=== PATIENT | male | born 1975 | race Hispanic/Latino ===

== ENCOUNTER 2021-02-12 20:54 | Inpatient (IN) | payer SELFPAY ==
--- NOTE | 2021-02-12 22:22 | Emergency Department Report ---
ED Shortness of Breath HPI - General Chief Complaint: Dyspnea/Respdistress Stated Complaint: SOB Time Seen by Provider: 02/12/21 21:48 Source: EMS, old records reviewed (no previous record here) Mode of arrival: Stretcher Limitations: No Limitations - History of Present Illness Initial Comments: 45-year-old male with a past medical history of alcohol abuse, liver cirrhosis secondary to alcohol abuse, hypertension presents to the hospital complaints of shortness of breath for the last 3 days. EMS reported patient had a room air saturation 90% with audible wheezing. Patient received albuterol 5 mg and Decadron 10 mg in route to the hospital with improvement in symptoms and improvement in room air saturation to 96%. Patient states he has significant abdominal distention with history of repeated paracentesis secondary to ascites. Previous paracentesis had been performed at [facility] with last procedure performed 1 month ago. Patient has his first outpatient GI follow-up appointment scheduled at [facility] tomorrow. Patient continues to drink alcohol and prefers vodka. Last drink was 4 hours prior to arrival. Patient has a history of severe alcohol withdrawal tremors and expresses concern about withdrawing during his stay here. Patient does not smoke cigarettes. Denies history of lung disease. Patient is unvaccinated for Covid. He denies cough, loss of sense of taste or smell, or fever - Related Data Allergies Allergy/AdvReac Type Severity Reaction Status Date / Time No Known Allergies Allergy Verified 02/13/21 01:35 ED Review of Systems ROS: Stated complaint: SOB Other details as noted in HPI Comment: All other systems reviewed and negative ED Past Medical Hx - Past Medical History Previous Medical History?: No - Surgical History Past Surgical History?: No ED Physical Exam - General Limitations: No Limitations - Other Other exam information: General: No acute distress Head: Atraumatic Eyes: Icteric sclera ENT: Moist mucous membranes Neck: Normal appearance, no midline tenderness Chest: Mild tachypnea, mild wheeze left lung field, right lung field sounds diminished CV: Regular rate and rhythm Abdomen: Soft, normal bowel sounds, hepatomegaly palpated, mild liver tenderness, no rebound Back: Normal inspection Extremity: Normal inspection, full range of motion Neuro: Alert O x 3, no facial asymmetry, speech clear, no gross motor sensory deficit Psych: Appropriate behavior Skin: No rash ED Course Vital Signs 02/12/21 02/12/21 02/12/21 21:56 23:39 23:45 Temperature 98.9 F Pulse Rate 70 117 H 119 H Respiratory 19 35 H 27 H Rate Blood Pressure 142/84 123/83 Blood Pressure 132/83 [Right] O2 Sat by Pulse 94 92 95 Oximetry 02/13/21 02/13/21 02/13/21 00:01 00:15 00:45 Temperature Pulse Rate 118 H 124 H 115 H Respiratory 23 33 H 28 H Rate Blood Pressure 129/75 114/75 100/54 Blood Pressure [Right] O2 Sat by Pulse 96 94 Oximetry 02/13/21 02/13/21 02/13/21 01:01 01:15 01:31 Temperature Pulse Rate 129 H 124 H 124 H Respiratory 15 36 H 21 Rate Blood Pressure 113/73 135/81 128/72 Blood Pressure [Right] O2 Sat by Pulse 93 91 91 Oximetry 02/13/21 02/13/21 02/13/21 01:45 02:01 02:15 Temperature Pulse Rate 134 H 145 H 128 H Respiratory 17 29 H 29 H Rate Blood Pressure 147/102 123/75 128/75 Blood Pressure [Right] O2 Sat by Pulse 85 94 90 Oximetry 02/13/21 02/13/21 02/13/21 02:31 02:45 03:01 Temperature Pulse Rate 135 H 132 H Respiratory 29 H 33 H 32 H Rate Blood Pressure 132/63 145/94 135/87 Blood Pressure [Right] O2 Sat by Pulse 98 90 Oximetry 02/13/21 02/13/21 02/13/21 03:15 03:31 04:01 Temperature Pulse Rate Respiratory Rate Blood Pressure 136/83 138/87 127/84 Blood Pressure [Right] O2 Sat by Pulse 87 86 94 Oximetry 02/13/21 02/13/21 02/13/21 04:15 04:31 05:04 Temperature Pulse Rate 155 H 125 H Respiratory 20 36 H Rate Blood Pressure 139/62 127/80 Blood Pressure [Right] O2 Sat by Pulse 95 99 Oximetry - Reevaluation(s) Reevaluation #1: 02/13/21 01:34 Supports O2 saturation 91 to 92% on 5 L nasal cannula oxygen supplementation, patient received Ativan 2 mg IV and is still tachycardic. Banana bag ordered Reevaluation #2: 02/13/21 04:32 Patient has been admitted to the hospitalist service however, patient apparently has a change in mental status. Upon arrival he was alert and oriented he is currently sedated, slurring words, and intermittently not following commands and continues to try to remove the oxygen from his face. Nurse reports that patient has received a total Ativan 4 mg secondary to CIWA score. Ammonia ordered, ABG requested from respiratory therapist, Dr. Madrigal informed and he will change admission from telemetry back to IMCU Reevaluation #3: 02/13/21 5:30 AM Patient was found by nurse pulseless and apneic. Upon my arrival patient was cyanotic with chest compressions in progress. CPR was initiated. PEA on the monitor patient received bag mask valve ventilations while being prepped for intubations. He received a total of epinephrine x2, 1 amp of sodium bicarb, is intubated with 7.5 ET tube 20 at the lip using a glide scope. Positive return of spontaneous circulation. Central line placed. Dr. Madrigal informed - Consultations Consultation #1: 02/12/21 22:26 case d/w Dr Hayden on-call fabrication operator. Agree with CAT scan will consult during admission 02/13/21 00:[address] Mehta GI doctor advanced manufacturing consultant will consult 02/13/21 06:04 Dr. Mas critical care MD consulted. Dr Madrigal to upgrade pt to ICU - Central Line Placement Right Femoral Consent Obtained: emergent situation Time Out Performed: Yes Patient Placed on Monitor/Pulse Ox: Yes MD Prep: mask, gown, gloves Central Line Prep: Chlorhexidine scrub Local Anesthesia Used: other anesthetic Ultrasound Used for Placement: Yes Central Line Lumen Inserted: triple Reason for Insertion: Volume Resuscitation Bloods Obtained for Lab: No Central Line Position: good blood return, sutured in place with nyl Dressing Applied: sterile gauze/tape Patient Tolerated Procedure: no complications Complications: none - Intubation Time Out Performed: Yes Sedative: none Laryngoscope: fiberoptic video scope Size: 4 ET Tube Size: 7.5 Tube Secured Depth (cm): 21 Tube Secured Location: lips Tube Placement Confirmation: visualized tube passing t, equal breath sounds bilat, no breath sounds over epi, confirmation by capnometr Patient Tolerated Procedure: well, no complications Intubation Complications: none ED Medical Decision Making - Lab Data Result diagrams: 02/12/21 22:17 12/20/21 22:17 Lab Results 02/12/21 02/12/21 02/12/21 Range/Units 22:17 22:17 22:17 WBC 8.5 (4.5-11.0) K/mm3 RBC 4.16 (3.65-5.03) M/mm3 Hgb 13.7 (11.8-15.2) gm/dl Hct 43.6 (35.5-45.6) % MCV 105 H (84-94) fl MCH 33 H (28-32) pg MCHC 31 L (32-34) % RDW 17.6 H (13.2-15.2) % Plt Count 73 L (140-440) K/mm3 Eos % (Auto) Psychiatric Registered Nurse Seg Neutrophils % Psychiatric Registered Nurse PT 15.5 H (12.2-14.9) Sec. INR 1.11 (0.87-1.13) APTT 39.3 H (24.2-36.6) Sec. Sodium 136 L (137-145) mmol/L Potassium 3.4 L (3.6-5.0) mmol/L Chloride 91.9 L (98-107) mmol/L Carbon Dioxide 18 L (22-30) mmol/L Anion Gap 30 mmol/L BUN 17 (9-20) mg/dL Creatinine 1.2 (0.8-1.3) mg/dL Estimated GFR > 60 ml/min BUN/Creatinine Ratio 14 % Glucose 164 H (75-100) mg/dL Calcium 9.0 (8.4-10.2) mg/dL Magnesium (1.7-2.3) mg/dL Total Bilirubin 18.90 H (0.1-1.2) mg/dL AST 396 H (5-40) units/L ALT 98 H (7-56) units/L Alkaline Phosphatase 454 H (35-129) units/L Total Protein 6.3 (6.3-8.2) g/dL Albumin 3.4 L (3.9-5) g/dL Albumin/Globulin Ratio 1.2 % Plasma/Serum Alcohol (0-0.07) % 02/12/21 02/12/21 Range/Units 22:17 Unknown WBC (4.5-11.0) K/mm3 RBC (3.65-5.03) M/mm3 Hgb (11.8-15.2) gm/dl Hct (35.5-45.6) % MCV (84-94) fl MCH (28-32) pg MCHC (32-34) % RDW (13.2-15.2) % Plt Count (140-440) K/mm3 Eos % (Auto) Seg Neutrophils % PT (12.2-14.9) Sec. INR (0.87-1.13) APTT (24.2-36.6) Sec. Sodium (137-145) mmol/L Potassium (3.6-5.0) mmol/L Chloride (98-107) mmol/L Carbon Dioxide (22-30) mmol/L Anion Gap mmol/L BUN (9-20) mg/dL Creatinine (0.8-1.3) mg/dL Estimated GFR ml/min BUN/Creatinine Ratio % Glucose (75-100) mg/dL Calcium (8.4-10.2) mg/dL Magnesium 1.50 L (1.7-2.3) mg/dL Total Bilirubin (0.1-1.2) mg/dL AST (5-40) units/L ALT (7-56) units/L Alkaline Phosphatase (35-129) units/L Total Protein (6.3-8.2) g/dL Albumin (3.9-5) g/dL Albumin/Globulin Ratio % Plasma/Serum Alcohol 0.32 H (0-0.07) % - EKG Data -: EKG Interpreted by Ar EKG shows normal: sinus rhythm, intervals (qtc 4941), QRS complexes (qrsd 158), ST-T waves (no stemi) Rate: tachycardia (120) - EKG Data When compared to previous EKG there are: previous EKG unavailable - Radiology Data Radiology results: report reviewed CHEST 1 VIEW 02/12/2021 9:28 PM INDICATION / CLINICAL INFORMATION: Shortness of breath for 3 days. History of liver failure with abdominal distention. History of ascites. COMPARISON: None available. FINDINGS: SUPPORT DEVICES: None. HEART / MEDIASTINUM: Unremarkable as visualized. LUNGS / PLEURA: There is complete opacification of the right hemithorax. The left lung is clear. No pneumothorax. ADDITIONAL FINDINGS: No significant additional findings. IMPRESSION: Complete opacification of the right hemithorax, likely representing a large pleural effusion and/or atelectasis. A CT of the chest is pending. CT CHEST, ABDOMEN, AND PELVIS WITH IV CONTRAST INDICATION: Shortness of breath, abdominal distention, history of alcohol induced cirrhosis. TECHNIQUE: Axial CT images were obtained through the chest, abdomen, and pelvis after 100 cc Omnipaque [address] scans at this location are performed using CT dose reduction for ALARA by means of automated exposure control. COMPARISON: One view of the chest performed today. FINDINGS: HEART: No significant abnormality. THORACIC VASCULATURE: No acute findings. There is moderate coronary atherosclerosis. The aorta is normal in caliber. LYMPH NODES: Shotty mediastinal nodes are present. No significant adenopathy is seen elsewhere. TRACHEA AND BRONCHI:No significant abnormality. LUNGS: There is a very large right pleural effusion with associated atelectasis. A small left pleural effusion is also noted. The left lung is otherwise clear. No pneumothorax. LIVER: Marked hepatic steatosis is noted with hepatomegaly. The right hepatic lobe measures 25 cm in length. No suspicious liver lesions or other significant abnormalities. GALLBLADDER/BILE DUCTS: No significant abnormality. PANCREAS: No significant abnormality. SPLEEN: No significant abnormality. ADRENALS: No significant abnormality. KIDNEYS/URETERS: No significant abnormality. STOMACH/SMALL BOWEL: No significant abnormality. COLON: Thickening of the right colon is favored to be secondary to liver disease. The sigmoid colon is underdistended. There is nonspecific circumferential thickening of the rectum with mild perirectal fat stranding. No distinct colonic mass or other significant abnormalities. APPENDIX: No significant abnormality. PERITONEUM: Trace ascites is seen along the spleen. No other significant ascites. No free air. No fluid collection. There is mild mesenteric edema and congestion. LYMPH NODES: No significant adenopathy. ABDOMINOPELVIC VASCULATURE: No significant abnormality. URINARY BLADDER: Collapse without a distinct abnormality. REPRODUCTIVE ORGANS: No significant abnormality. ADDITIONAL FINDINGS: None. BONES: No significant abnormality IMPRESSION: 1. Very large right pleural effusion without other acute abnormalities of the chest. 2. Hepatomegaly and hepatic steatosis. 3. Thickening of the right colon is favored to be secondary to liver disease. 4. Thickening of the sigmoid colon is favored to be due to underdistention. However, given the thickened appearance of the rectum, colitis/proctitis cannot be excluded. Please correlate with the clinical findings. 5. Additional findings as above. - Medical Decision Making 45-year-old male with a history of alcohol induced liver cirrhosis with recurrent ascites requiring paracentesis presents to the hospital shortness of breath. Symptoms improved after bronchodilators that were provided by EMS prior to arrival. Patient has a significant right pleural effusion with right lung collapse. CT abdomen pelvis does not reveal significant ascites other findings noted. Case discussed with Dr. Hayden pulmonology and they will consult in the morning. Case also discussed with GI advanced manufacturing consultant. Potassium and magnesium supplement Patient placed on CIWA protocol for alcohol withdrawal however, presents with alcohol intoxication ABG reveals a metabolic acidosis. Initial labs revealed a metabolic anion gap acidosis with elevated alcohol level. O2 saturation 95% on 100% nonrebreather after admission patient had diminished mental status, worsening hypoxia, and cardiopulmonary arrest. See hospital course for further details regarding interventions and resuscitation efforts Critical Care Time: Yes Critical care time in (mins) excluding proc time.: 35 Critical care attestation.: If time is entered above; I have spent that time in minutes in the direct care of this critically ill patient, excluding procedure time. ED Disposition Clinical Impression: SOB (shortness of breath), Pleural effusion, right, Liver cirrhosis, Alcohol abuse, Thrombocytopenia, Hypokalemia, Hypomagnesemia, Acute respiratory failure, Cardiopulmonary arrest with successful resuscitation Disposition: ADMITTED INPATIENT Is pt being admited?: Yes Condition: Stable Time of Disposition: 00:17
[2021-02-12] MEDS ORDERED: LORazepam 2 MG/ML VIAL IV PRN (22:24)
[2021-02-12 22:33] LABS: Hematocrit 43.6 % (35.5-45.6); Hemoglobin 13.7 gm/dl (11.8-15.2); Mean Corpuscular HGB Conc 31 % (32-34); Mean Corpuscular Volume 105 fl (84-94); Red Blood Count 4.16 M/mm3 (3.65-5.03); Red Cell Distribution Width 17.6 % (13.2-15.2)
[2021-02-12 22:37] LABS: Platelet Count 73 K/mm3 (140-440)
[2021-02-12 22:41] LABS: INR 1.11 (0.87-1.13)
[2021-02-12 22:42] LABS: Partial Thromboplastin Time 39.3 Sec. (24.2-36.6)
--- NOTE | 2021-02-12 22:44 | XRay Report ---
CHEST 1 VIEW 02/12/2021 9:28 PM INDICATION / CLINICAL INFORMATION: Shortness of breath for 3 days. History of liver failure with abdominal distention. History of ascite s. COMPARISON: None available. FINDINGS: SUPPORT DEVICES: None. HEART / MEDIASTINUM: Unremarkable as visualized. LUNGS / PLEURA: There is complete opacification of the right hemithorax. The left lung is clear. No pneumothorax. ADDITIONAL FINDINGS: No significant additional findings. IMPRESSION: Complete opacification of the right hemithorax, likely representing a large pleural effusion and/or a telectasis. A CT of the chest is pending. Signer Name: José Manuel Craven MD Signed: 02/12/2021 10:40 PM Workstation Name: [id number]
[2021-02-12 22:48] LABS: Alanine Aminotransferase 98 units/L (7-56); Albumin 3.4 g/dL (3.9-5); BUN/Creatinine Ratio 14; Blood Urea Nitrogen 17 mg/dL (9-20); Hemolysis Index 0
--- NOTE | 2021-02-12 23:56 | Cat Scan Report ---
CT CHEST, ABDOMEN, AND PELVIS WITH IV CONTRAST INDICATION: Shortness of breath, abdominal distention, history of alcohol induced cirrhosis. TECHNIQUE: Axial CT images were obtained through the chest, abdomen, and pelvis after 100 cc Omnipaque [address] scans at this location are performed using CT dose reduction for ALARA by means of aut omated exposure control. COMPARISON: One view of the chest performed today. FINDINGS: HEART: No significant abnormality. THORACIC VASCULATURE: No acute findings. There is moderate coronary atherosclerosis. The aorta is nor mal in caliber. LYMPH NODES: Shotty mediastinal nodes are present. No significant adenopathy is seen elsewhere. TRACHEA AND BRONCHI:No significant abnormality. LUNGS: There is a very large right pleural effusion with associated atelectasis. A small left pleural effusion is also noted. The left lung is otherwise clear. No pneumothorax. LIVER: Marked hepatic steatosis is noted with hepatomegaly. The right hepatic lobe measures 25 cm in length. No suspicious liver lesions or other significant abnormalities. GALLBLADDER/BILE DUCTS: No significant abnormality. PANCREAS: No significant abnormality. SPLEEN: No significant abnormality. ADRENALS: No significant abnormality. KIDNEYS/URETERS: No significant abnormality. STOMACH/SMALL BOWEL: No significant abnormality. COLON: Thickening of the right colon is favored to be secondary to liver disease. The sigmoid colon i s underdistended. There is nonspecific circumferential thickening of the rectum with mild perirectal fat stranding. No distinct colonic mass or other significant abnormalities. APPENDIX: No significant abnormality. PERITONEUM: Trace ascites is seen along the spleen. No other significant ascites. No free air. No flu id collection. There is mild mesenteric edema and congestion. LYMPH NODES: No significant adenopathy. ABDOMINOPELVIC VASCULATURE: No significant abnormality. URINARY BLADDER: Collapse without a distinct abnormality. REPRODUCTIVE ORGANS: No significant abnormality. ADDITIONAL FINDINGS: None. BONES: No significant abnormality IMPRESSION: 1. Very large right pleural effusion without other acute abnormalities of the chest. 2. Hepatomegaly and hepatic steatosis. 3. Thickening of the right colon is favored to be secondary to liver disease. 4. Thickening of the sigmoid colon is favored to be due to underdistention. However, given the thicke devi appearance of the rectum, colitis/proctitis cannot be excluded. Please correlate with the clinica l findings. 5. Additional findings as above. Signer Name: José Manuel Craven MD Signed: 02/12/2021 11:51 PM Workstation Name: [id number]
[2021-02-12] MEDS: LORazepam 2 MG/ML VIAL IV PRN (23:58)
[2021-02-13] MEDS ORDERED: POTASSIUM CHLORIDE ER 20 MEQ TAB PO ONE (00:09)
[2021-02-13] MEDS ORDERED: MAGNESIUM SULFATE 2 GM/50 ML BAG IV ONE (00:09)
[2021-02-13] MEDS ORDERED: THIAMINE 100 MG, FOLIC ACID 1 MG, MULTIPLE VITAMIN INJ, ADULT 10 ML in SODIUM CHLORIDE ... IV ONE (01:34)
[2021-02-13] MEDS: LORazepam 2 MG/ML VIAL IV PRN (02:07)
[2021-02-13 02:25] LABS: Total Cells Counted 100
[2021-02-13 02:26] LABS: Target Cells 1+
[2021-02-13 02:27] LABS: Platelet Estimate Consistent w Auto
[2021-02-13] MEDS ORDERED: MORPHINE 4 MG/1 ML INJ IV PRN (02:35)
[2021-02-13] MEDS ORDERED: ACETAMINOPHEN 325 MG TAB PO PRN (02:35)
[2021-02-13] MEDS ORDERED: MAGNESIUM HYDROXIDE (MOM) ORAL LIQD UDC PO PRN (02:35)
[2021-02-13] MEDS ORDERED: ONDANSETRON 4 MG/2 ML INJ IV PRN (02:35)
[2021-02-13] MEDS ORDERED: MORPHINE 2 MG/1 ML INJ IV PRN (02:35)
--- NOTE | 2021-02-13 02:45 | History and Physical Report ---
History of Present Illness Date of examination: 02/13/21 Date of admission: 02/13/21 00:17 Chief complaint: Shortness of Breath History of present illness: 45-year-old male with known history of alcohol abuse, liver cirrhosis secondary to alcoholic liver disease, hypertension brought into the emergency room today complaining of shortness of breath which has been ongoing for the past 3 days. Upon arrival in the emergency room oxygen saturation was in the low 90s patient received some nebulizing treatments and steroids with improvement of oxygen saturation to about 96%. Patient has known history of ascites and has had repeated paracentesis in the past. Last paracentesis was done at [facility] about a month ago. Indicates he has a follow-up appointment at [facility] at the GI clinic tomorrow. He however continues to drink alcohol almost on a daily basis. Last alcohol intake was about 4 hours prior to presentation in the emergency room. Patient has known history of severe alcohol withdrawal tremors. He denies any fever or chills, no chest pain, no nausea vomiting and no diarrhea. He denies any sick contacts and no recent travel. Denies any contact with anyone with COVID-19. Patient has not been vaccinated against COVID-19. Work-up in the emergency room today, significant findings were that of thrombocytopenia of 73,000, mild hypokalemia of 3.4, elevated AST and ALT, elevated ammonia level 68. Chest x-ray shows complete opacification of the right hemithorax likely representing a large pleural effusion and or atelectasis. CT of the abdomen and pelvis reveals hepatomegaly and hepatic steatosis. Very large right pleural effusion. During the course of his stay in the emergency room patient went into respiratory distress and was subsequently intubated. Past History Past Medical History: hypertension, liver disease, other (alcohol abuse) Past Surgical History: No surgical history Social history: no significant social history Family history: no significant family history Medications and Allergies Allergies Allergy/AdvReac Type Severity Reaction Status Date / Time No Known Allergies Allergy Verified 02/13/21 01:35 Active Meds: Active Medications Thiamine HCl 100 mg/ Folic Acid 1 mg/ Multivitamins/Minerals 10 ml/ Sodium Chloride 1,011.2 mls @ 250 mls/hr IV ONCE ONE Stop: 02/13/21 05:36 Last Admin: 02/13/21 02:35 Dose: 250 mls/hr Documented by: Lorazepam (Lorazepam 2 Mg/Ml Vial) 2 mg IV Q1H PRN PRN Reason: [facility] 8-15 Last Admin: 02/13/21 02:07 Dose: 2 mg Documented by: Lorazepam (Lorazepam 2 Mg/Ml Vial) 4 mg IV Q1H PRN PRN [facility] Review [facility] Systems Constitutional: no fever, no chills Ears, nose, mouth and throat: no nasal congestion, no sore throat Cardiovascular: no chest pain, no palpitations Respiratory: shortness of breath, no cough Gastrointestinal: abdominal pain, no nausea, no vomiting, no diarrhea Genitourinary Male: no dysuria, no hematuria, no nocturia Musculoskeletal: no neck pain, no low back pain Integumentary: no rash, no pruritis Neurological: no headaches, no confusion Psychiatric: no anxiety, no depression Endocrine: no polydipsia, no polyuria, no nocturia Exam - Constitutional Vitals: Temp Pulse Resp BP Pulse Ox 98.9 F 145 H 29 H 123/75 94 02/12/21 21:56 02/13/21 02:01 02/13/21 02:01 02/13/21 02:01 02/13/21 02:01 General appearance: Present: no acute distress, well-nourished - EENT Eyes: Present: PERRL, EOM intact, scleral icterus ENT: hearing intact, clear oral mucosa, dentition normal - Neck Neck: Present: supple, normal ROM - Respiratory Respiratory effort: normal Respiratory: bilateral: rales - Cardiovascular Rhythm: regular Heart Sounds: Present: S1 & S2. Absent: gallop, systolic murmur, diastolic murmur, rub, click - Extremities Extremities: no ischemia, pulses intact, pulses symmetrical, normal temperature, normal color, Full ROM Peripheral Pulses: within normal limits - Abdominal General gastrointestinal: Present: soft, tender (Mild abdominal tenderness), distended, normal bowel sounds, hepatomegaly - Integumentary Integumentary: Present: clear, warm, dry, rash (Multiple healed rashes on lower extremities), normal turgor - Musculoskeletal Musculoskeletal: strength equal bilaterally - Psychiatric Psychiatric: appropriate mood/affect, intact judgment & insight, memory intact, cooperative - Neurologic Neurologic: CNII-XII intact, no focal deficits, moves all extremities Results - Labs CBC & Chem 7: 12/20/21 22:17 02/12/21 22:17 Labs: Abnormal lab results 02/12/21 02/12/21 02/12/21 Range/Units 22:17 22:17 22:17 MCV 105 H (84-94) fl MCH 33 H (28-32) pg MCHC 31 L (32-34) % RDW 17.6 H (13.2-15.2) % Plt Count 73 L (140-440) K/mm3 Seg Neuts % (Manual) 96.0 H (40.0-70.0) % Lymphocytes % (Manual) 3.0 L (13.4-35.0) % Seg Neutrophils # Man 8.2 H (1.8-7.7) K/mm3 Lymphocytes # (Manual) 0.3 L (1.2-5.4) K/mm3 PT 15.5 H (12.2-14.9) Sec. APTT 39.3 H (24.2-36.6) Sec. Sodium 136 L (137-145) mmol/L Potassium 3.4 L (3.6-5.0) mmol/L Chloride 91.9 L (98-107) mmol/L Carbon Dioxide 18 L (22-30) mmol/L Glucose 164 H (75-100) mg/dL Magnesium (1.7-2.3) mg/dL Total Bilirubin 18.90 H (0.1-1.2) mg/dL AST 396 H (5-40) units/L ALT 98 H (7-56) units/L Alkaline Phosphatase 454 H (35-129) units/L Albumin 3.4 L (3.9-5) g/dL Plasma/Serum Alcohol (0-0.07) % 02/12/21 02/12/21 Range/Units 22:17 Unknown MCV (84-94) fl MCH (28-32) pg MCHC (32-34) % RDW (13.2-15.2) % Plt Count (140-440) K/mm3 Seg Neuts % (Manual) (40.0-70.0) % Lymphocytes % (Manual) (13.4-35.0) % Seg Neutrophils # Man (1.8-7.7) K/mm3 Lymphocytes # (Manual) (1.2-5.4) K/mm3 PT (12.2-14.9) Sec. APTT (24.2-36.6) Sec. Sodium (137-145) mmol/L Potassium (3.6-5.0) mmol/L Chloride (98-107) mmol/L Carbon Dioxide (22-30) mmol/L Glucose (75-100) mg/dL Magnesium 1.50 L (1.7-2.3) mg/dL Total Bilirubin (0.1-1.2) mg/dL AST (5-40) units/L ALT (7-56) units/L Alkaline Phosphatase (35-129) units/L Albumin (3.9-5) g/dL Plasma/Serum Alcohol 0.32 H (0-0.07) % Assessment and Plan - Patient Problems (1) Pleural effusion, right Current Visit: Yes Status: Acute Plan to address problem: Consult placed to pulmonology for further evaluation and recommendation. Patient may require thoracentesis. (2) Hypokalemia Current Visit: Yes Status: Acute Plan to address problem: Potassium will be repleted and we will monitor chemistry. (3) Alcohol abuse Current Visit: Yes Status: Acute Plan to address problem: Patient placed on alcohol withdrawal protocol. He has also received banana bag in the emergency room. (4) Hypomagnesemia Current Visit: Yes Status: Acute Plan to address problem: Magnesium will be repleted and will monitor chemistry. (5) Liver cirrhosis Current Visit: Yes Status: Acute Plan to address problem: Consult placed to gastroenterology for further evaluation and recommendations. (6) Thrombocytopenia Current Visit: Yes Status: Acute Plan to address problem: We will monitor CBC. (7) DVT prophylaxis Current Visit: Yes Status: Acute Plan to address problem: Patient placed on sequential compression device. (8) Full code status Current Visit: Yes Status: Acute Plan to address problem: Patient is full code.
[2021-02-13 04:59] LABS: ABG Base Excess -9.3 mmol/L (-2.0-3.0); ABG HCO3 15.8 mmol/L (20.0-26.0); ABG Methemoglobin 0.6 % (0.0-1.5); ABG Oxygen Saturation 95.2 % (95.0-99.0); ABG PH 7.31 pH Units (7.350-7.450); ABG PO2 81.4 mm Hg (80.0-90.0)
[2021-02-13] MEDS ORDERED: LIP THERAPY VASELINE TP PRN (05:56)
[2021-02-13] MEDS ORDERED: MINERAL OIL/PETROLATUM, WHITE OPHTH OINT 3.5 GM OU PRN (05:56)
--- NOTE | 2021-02-13 06:37 | XRay Report ---
CHEST 1 VIEW 02/13/2021 5:21 AM INDICATION / CLINICAL INFORMATION: ETT placement. COMPARISON: One view of the chest and CT chest from 02/12/2021 FINDINGS: SUPPORT DEVICES: An ET tube has been placed with the tip located 7.7 cm above the cesar. An NG tube has been placed with the most distal visualized portion projecting over the proximal stomach. HEART / MEDIASTINUM: Stable. LUNGS / PLEURA: Unchanged very large right pleural effusion. No significant abnormality of the left l celio. No pneumothorax. ADDITIONAL FINDINGS: No significant additional findings. IMPRESSION: Satisfactory positioning of the ET tube. No other significant interval changes. Signer Name: José Manuel Craven MD Signed: 02/13/2021 6:33 AM Workstation Name: [id number]
[2021-02-13] MEDS ORDERED: SODIUM CHLORIDE 0.9% 250ML 250 ML IV ONE (06:55)
[2021-02-13] MEDS: NORepinephrine/NS 8 MG-250 ML 8 MG/250 ML INFUS..BTL IV SCH (08:08)
[2021-02-13 08:41] LABS: ABG Base Excess -13.4 mmol/L (-2.0-3.0); ABG HCO3 12.9 mmol/L (20.0-26.0); ABG Methemoglobin 0.7 % (0.0-1.5); ABG Oxygen Saturation 96.9 % (95.0-99.0); ABG PCO2 31.6 mm Hg; ABG PH 7.229 pH Units (7.350-7.450); ABG PO2 101.6 mm Hg (80.0-90.0)
[2021-02-13] MEDS ORDERED: FAMOTIDINE 20 MG/2 ML INJ IV SCH (10:00)
[2021-02-13] MEDS: LACTULOSE 20 GM/30 ML ORAL LIQD PO SCH (11:09)
[2021-02-13] MEDS: SENNOSIDES/DOCUSATE SODIUM 8.6/50 MG TAB FEEDTUBE SCH ×2 (11:09→22:02)
[2021-02-13] MEDS: FAMOTIDINE 20 MG/2 ML INJ IV SCH ×2 (11:09→22:02)
--- NOTE | 2021-02-13 11:40 | Consultation ---
History of Present Illness Consult date: 02/13/21 Requesting physician: DL CANO Reason for consult: pleural effusion, other (Acute Hypoxemic Respiratory Failure) History of present illness: PULMONARY/CCM CONSULT NOTE (Full dictation # [id number]) Please see dictated notes for full details Past History Past Medical History: hypertension, liver disease, other (alcohol abuse) Past Surgical History: No surgical history Social history: no significant social history Family history: no significant family history Medications and Allergies Allergies Allergy/AdvReac Type Severity Reaction Status Date / Time No Known Allergies Allergy Verified 02/13/21 01:35 Active Meds: Active Medications Acetaminophen (Acetaminophen 325 Mg Tab) 650 mg PO Q4H PRN PRN Reason: Pain MILD(1-3)/Fever >100.5/GIORDANO Famotidine (Famotidine 20 Mg/2 Ml Inj) 20 mg IV BID LAURIE Last Admin: 02/13/21 11:09 Dose: 20 mg Documented by: Hydrophilic Ointment (Lip Therapy Vaseline) 1 applic TP Q2HR PRN PRN Reason: Dry Lips Propofol (Diprivan 10 Mg/Ml) 1,000 mg in 100 mls @ 2.517 mls/hr IV TITR LAURIE; Protocol Last Titration: 02/13/21 08:54 Dose: 10 mcg/kg/min, 5.035 mls/hr Documented by: NORepinephrine/NS 8 MG-250 ML (Norepinephrine/Ns 8 Mg-250 Ml (Double Conc)) 8 m g in 250 mls @ 3.75 mls/hr IV TITRATE LAURIE; Protocol Last Titration: 02/13/21 08:20 Dose: 10 mcg/min, 18.75 mls/hr Documented by: Lactulose (Lactulose 20 Gm/30 Ml Oral Liqd) 20 gm PO QDAY LAURIE Last Admin: 02/13/21 11:09 Dose: 20 gm Documented by: Lorazepam (Lorazepam 2 Mg/Ml Vial) 2 mg IV Q1H PRN PRN Reason: [facility]-Ar 8-15 Last Admin: 02/13/21 02:07 Dose: 2 mg Documented by: Lorazepam (Lorazepam 2 Mg/Ml Vial) 4 mg IV Q1H PRN PRN Reason: [facility]-Ar 16-25 Magnesium Hydroxide (Magnesium Hydroxide (Mom) Oral Liqd Udc) 30 ml PO Q4H PRN PRN Reason: Constipation Morphine Sulfate (Morphine 2 Mg/1 Ml Inj) 2 mg IV Q4H PRN PRN Reason: Pain, Moderate (4-6) Morphine Sulfate (Morphine 4 Mg/1 Ml Inj) 4 mg IV Q4H PRN PRN Reason: Pain , Severe (7-10) Multi-Ingred Cream/Lotion/Oil/Oint (Mineral Oil/Petrolatum, White Ophth Oint 3.5 Gm) 1 applic OU Q4HR PRN PRN Reason: Dry Eye(s) Ondansetron HCl (Ondansetron 4 Mg/2 Ml Inj) 4 mg IV Q8H PRN PRN Reason: Nausea And Vomiting Senna/Docusate Sodium (Sennosides/Docusate Sodium 8.6/50 Mg Tab) 1 tab FEEDTUBE BID [facility] Last Admin: 02/13/21 11:09 Dose: 1 tab Documented by: Sodium Chloride (Sodium Chloride 0.9% 10 Ml Flush Syringe) 10 ml IV BID [facility] Last Admin: 02/13/21 11:00 Dose: Not Given Documented by: Sodium Chloride (Sodium Chloride 0.9% 10 Ml Flush Syringe) 10 ml IV PRN PRN PRN Reason: LINE FLUSH Physical Examination Vital signs: Vital Signs Temp Pulse Resp BP Pulse Ox 98.9 F 70 19 132/83 94 02/12/21 21:56 02/12/21 21:56 02/12/21 21:56 02/12/21 21:56 02/12/21 21:56 Results - Laboratory Findings CBC and BMP: 02/12/21 22:17 02/12/21 22:17 ABG ABG pH 7.229 pH Units (7.350-7.450) L 02/13/21 08:17 ABG pCO2 31.6 mm Hg 02/13/21 08:17 ABG pO2 101.6 mm Hg (80.0-90.0) H 02/13/21 08:17 ABG O2 Saturation 96.9 % (95.0-99.0) 02/13/21 08:17 PT/INR, D-dimer PT 15.5 Sec. (12.2-14.9) H 02/12/21 22:17 INR 1.11 (0.87-1.13) 02/12/21 22:17 Abnormal lab findings: Abnormal Labs 02/12/21 02/12/21 02/12/21 22:17 22:17 22:17 MCV 105 H MCH 33 H MCHC 31 L RDW 17.6 H Plt Count 73 L Seg Neuts % (Manual) 96.0 H Lymphocytes % (Manual) 3.0 L Seg Neutrophils # Man 8.2 H Lymphocytes # (Manual) 0.3 L PT 15.5 H APTT 39.3 H ABG pH ABG pO2 ABG HCO3 ABG Base Excess ABG Hemoglobin Oxyhemoglobin Sodium 136 L Potassium 3.4 L Chloride 91.9 L Carbon Dioxide 18 L Glucose 164 H Magnesium Total Bilirubin 18.90 H AST 396 H ALT 98 H Alkaline Phosphatase 454 H Ammonia Albumin 3.4 L Plasma/Serum Alcohol 02/12/21 02/12/21 02/13/21 22:17 Unknown 04:40 MCV MCH MCHC RDW Plt Count Seg Neuts % (Manual) Lymphocytes % (Manual) Seg Neutrophils # Man Lymphocytes # (Manual) PT APTT ABG pH 7.310 L ABG pO2 ABG HCO3 15.8 L ABG Base Excess -9.3 L ABG Hemoglobin 13.2 L Oxyhemoglobin 92.7 L Sodium Potassium Chloride Carbon Dioxide Glucose Magnesium 1.50 L Total Bilirubin AST ALT Alkaline Phosphatase Ammonia Albumin Plasma/Serum Alcohol 0.32 H 02/13/21 02/13/21 05:00 08:17 MCV MCH MCHC RDW Plt Count Seg Neuts % (Manual) Lymphocytes % (Manual) Seg Neutrophils # Man Lymphocytes # (Manual) PT APTT ABG pH 7.229 L ABG pO2 101.6 H ABG HCO3 12.9 L ABG Base Excess -13.4 L ABG Hemoglobin 13.2 L Oxyhemoglobin 94.8 L Sodium Potassium Chloride Carbon Dioxide Glucose Magnesium Total Bilirubin AST ALT Alkaline Phosphatase Ammonia 68.0 H Albumin Plasma/Serum Alcohol
--- NOTE | 2021-02-13 12:27 | Ultrasound Report ---
ULTRASOUND-GUIDED THORACENTESIS INDICATION / CLINICAL INFORMATION: Large Right Pleural Effusion. COMPARISON: None available. PROCEDURE: The risks (including but not limited to bleeding, infection, and pneumothorax) and benefits were expl ained to the patient and informed consent was obtained. A time out procedure was performed. Ultrasound was used to evaluate the pleural effusion and locate the optimal site for needle entry. O nce the skin was marked, the procedure site was prepped and draped in the usual sterile fashion. Lido stefan was used for local anesthesia. A skin tracy was made and a 6-[place] thoracentesis catheter was placed. The patient was monitored closely throughout the procedure, and a total of 1600 mL of fluid was aspirated. No labs were ordered on the fluid. No sample submitted to lab. The patient tolerated the procedure well with no complications. A post-procedure chest x-ray will be obtained. IMPRESSION: 1. Successful ultrasound-guided thoracentesis. Signer Name: Waqar Chowdhury MD Signed: 02/13/2021 12:23 PM Workstation Name: [id number]
[2021-02-13] MEDS ORDERED: EPINEPHrine 1 MG/10 ML SYRINGE ONE (12:49)
[2021-02-13] MEDS ORDERED: SODIUM BICARB 8.4% 50 MEQ/50 ML SYRINGE IV ONE (12:49)
--- NOTE | 2021-02-13 13:05 | Event Note ---
Date: 02/13/21 This a 45-year-old male with a known past medical history of ETOH abuse, alcohol induced liver cirrhosis with ascites, had multiple paracenteses in the past admitted for respiratory distress. While in the ED coded and had a cardiac arrest with ROSC. Patient is now intubated on ventilatory support transferred to ICU for further management. Patient seen and examined at the bedside. Patient is intubated and sedated on low dose propofol, on levophed for hypotension. Patient pupils are round and reactive with + gag and cough. Patient is also jaundice in appearance, abdomen is distended with no bowel sounds. Patient is s/p right thoracentesis, 1600cc drained. Repeat CXR ordered. Post cardiac arrest labs with lactic acidosis 11.70, wbcs normal, with worsen kidney function, most likely reactive post the code. Bcarb gtt was initiated and orders placed for panculture. Given patient's presentation with large right pleural effusion, will also treat patient empirical for possible CAP, orders placed for [id number]. Will continue to trend CBC, lactic, and BMP.
[2021-02-13 13:08] LABS: Mean Corpuscular HGB Conc 31 % (32-34); Mean Corpuscular Volume 109 fl (84-94); Red Blood Count 3.51 M/mm3 (3.65-5.03)
[2021-02-13 13:12] LABS: Hematocrit 38.3 % (35.5-45.6); Hemoglobin 11.7 gm/dl (11.8-15.2); Platelet Count 82 K/mm3 (140-440)
[2021-02-13 13:22] LABS: C-Reactive Protein 5.4 mg/dL (0.00-1.30)
[2021-02-13] MEDS ORDERED: MAGNESIUM SULFATE 4 GM/100 ML BAG IV SCH (13:30)
[2021-02-13 13:34] LABS: Monocytes Body Fluid 72.5 %; Total Cells Counted 80 /mm3
--- NOTE | 2021-02-13 13:40 | Event Note ---
Date: 02/13/21 lactate 11.7 (initial) - empiric AB's coverage with Rocephin and Zithromax - repeat lactate in am - follow procalcitonin level to shooter's helper clinical decision making
[2021-02-13] MEDS ORDERED: DEXTROSE 5% IN WATER 1,000 ML with SODIUM BICARBONATE 150 MEQ IV SCH (14:00)
[2021-02-13] MEDS ORDERED: cefTRIAXone/NS 1 GM/50 ML 1 GM/50 ML BAG IV SCH (14:00)
--- NOTE | 2021-02-13 14:07 | Gastroenterology Consultation ---
History of Present Illness - Reason for Consult Consult date: 02/13/21 cirrhosis, abnormal liver enzymes Requesting physician: BINTA GUALLPA - History of Present Illness The patient is a 45 yo male with h/o alcohol abuse, chronic liver disease/? cirrhosis per chart review presenting with sob, found to have large pleural effusion. subsequently intubated due to worsening respiratory symptoms in ER, now in ICU. history thus obtained primarily from chart review. + alcohol level on admission, with total bili of 18. per chart review, he has had paracentesis in the past and sees GI at [place]. no reported gi bleeding signs. unclear previous baseline labs as this is patient's first admission here. Past History Past Medical History: hypertension, liver disease, other (alcohol abuse) Past Surgical History: No surgical history Social history: no significant social history Family history: no significant family history Medications and Allergies Allergies Allergy/AdvReac Type Severity Reaction Status Date / Time No Known Allergies Allergy Verified 02/13/21 01:35 Active Meds: Active Medications Acetaminophen (Acetaminophen 325 Mg Tab) 650 mg PO Q4H PRN PRN Reason: Pain MILD(1-3)/Fever >100.5/GIORDANO Famotidine (Famotidine 20 Mg/2 Ml Inj) 20 mg IV BID LAURIE Last Admin: 02/13/21 11:09 Dose: 20 mg Documented by: Hydrophilic Ointment (Lip Therapy Vaseline) 1 applic TP Q2HR PRN PRN Reason: Dry Lips Propofol (Diprivan 10 Mg/Ml) 1,000 mg in 100 mls @ 2.517 mls/hr IV TITR LAURIE; Protocol Last Titration: 02/13/21 08:54 Dose: 10 mcg/kg/min, 5.035 mls/hr Documented by: NORepinephrine/NS 8 MG-250 ML (Norepinephrine/Ns 8 Mg-250 Ml (Double Conc)) 8 mg in 250 mls @ 3.75 mls/hr IV TITRATE LAURIE; Protocol Last Titration: 02/13/21 08:20 Dose: 10 mcg/min, 18.75 mls/hr Documented by: Magnesium Sulfate (Magnesium Sulfate 4gm/100ml) 4 gm in 100 mls @ 25 mls/hr IV ONCE@1330 LAURIE Stop: 02/13/21 17:30 Sodium Bicarbonate 150 meq/ (Dextrose) 1,150 mls @ 100 mls/hr IV DIRECT LAURIE Stop: 02/16/21 01:29 Azithromycin (Zithromax/Ns) 500 mg in 250 mls @ 250 mls/hr IV Q24H [facility] Stop: 02/16/21 13:59 Ceftriaxone Sodium (Rocephin/Ns 1 Gm/50 Ml) 1 gm in 50 mls @ 100 mls/hr IV Q24H [facility]; Protocol Stop: 02/18/21 13:59 Lactulose (Lactulose 20 Gm/30 Ml Oral Liqd) 20 gm PO QDAY [facility] Last Admin: 02/13/21 11:09 Dose: 20 gm Documented by: Lorazepam (Lorazepam 2 Mg/Ml Vial) 2 mg IV Q1H PRN PRN Reason: CIWA-Ar 8-15 Last Admin: 02/13/21 02:07 Dose: 2 mg Documented by: Lorazepam (Lorazepam 2 Mg/Ml Vial) 4 mg IV Q1H PRN PRN Reason: CIWA-Ar 16-25 Magnesium Hydroxide (Magnesium Hydroxide (Mom) Oral Liqd Udc) 30 ml PO Q4H PRN PRN Reason: Constipation Morphine Sulfate (Morphine 2 Mg/1 Ml Inj) 2 mg IV Q4H PRN PRN Reason: Pain, Moderate (4-6) Morphine Sulfate (Morphine 4 Mg/1 Ml Inj) 4 mg IV Q4H PRN PRN Reason: Pain , Severe (7-10) Multi-Ingred Cream/Lotion/Oil/Oint (Mineral Oil/Petrolatum, White Ophth Oint 3.5 Gm) 1 applic OU Q4HR PRN PRN Reason: Dry Eye(s) Ondansetron HCl (Ondansetron 4 Mg/2 Ml Inj) 4 mg IV Q8H PRN PRN Reason: Nausea And Vomiting Senna/Docusate Sodium (Sennosides/Docusate Sodium 8.6/50 Mg Tab) 1 tab FEEDTUBE BID [facility] Last Admin: 02/13/21 11:09 Dose: 1 tab Documented by: Sodium Chloride (Sodium Chloride 0.9% 10 Ml Flush Syringe) 10 ml IV BID [facility] Last Admin: 02/13/21 11:00 Dose: Not Given Documented by: Sodium Chloride (Sodium Chloride 0.9% 10 Ml Flush Syringe) 10 ml IV PRN PRN PRN Reason: LINE FLUSH reviewed/updated patient's home and current medications Review of Systems - Review of Systems ROS unobtainable: due to mental status Exam - Constitutional Vital Signs: Temp Pulse Resp BP Pulse Ox 98.9 F 125 H 34 H 103/65 97 02/12/21 21:56 02/13/21 11:31 02/13/21 11:10 02/13/21 11:31 02/13/21 11:31 General appearance: other (intubated/sedated) - EENT Eyes: scleral icterus - Respiratory Respiratory effort: other (on vent) Respiratory: bilateral: diminished - Cardiovascular Rhythm: regular Heart Sounds: Present: S1 & S2 - Gastrointestinal General gastrointestinal: Present: soft, non-distended - Psychiatric Psychiatric: other (intubated) - Labs CBC & Chem 7: 02/13/21 11:20 02/12/21 22:17 Lab Results: Laboratory Results - last 24 hr 02/12/21 02/12/21 02/12/21 22:17 22:17 22:17 WBC 8.5 RBC 4.16 Hgb 13.7 Hct 43.6 MCV 105 H MCH 33 H MCHC 31 L RDW 17.6 H Plt Count 73 L Eos % (Auto) 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 Add Manual Diff Complete Total Counted 100 Seg Neutrophils % 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 Seg Neuts % (Manual) 96.0 H Lymphocytes % (Manual) 3.0 L Monocytes % (Manual) 1.0 Nucleated RBC % Not Reportable Seg Neutrophils # Man 8.2 H Band Neutrophils # 0.0 Lymphocytes # (Manual) 0.3 L Abs React Lymphs (Man) 0.0 Monocytes # (Manual) 0.1 Eosinophils # (Manual) 0.0 Basophils # (Manual) 0.0 Metamyelocytes # 0.0 Myelocytes # 0.0 Promyelocytes # 0.0 Blast Cells # 0.0 WBC Morphology Not Reportable Hypersegmented Neuts Not Reportable Hyposegmented Neuts Not Reportable Hypogranular Neuts Not Reportable Smudge Cells Not Reportable Toxic Granulation Not Reportable Toxic Vacuolation Not Reportable Dohle Bodies Not Reportable Pelger-Huet Anomaly Not Reportable Airam Rods Not Reportable Platelet Estimate Consistent w auto Clumped Platelets Not Reportable Plt Clumps, EDTA Not Reportable Large Platelets Not Reportable Giant Platelets Not Reportable Platelet Satelliting Not Reportable Plt Morphology Comment Not Reportable RBC Morphology Not Reportable Dimorphic RBCs Not Reportable Polychromasia Not Reportable Hypochromasia Not Reportable Poikilocytosis Not Reportable Anisocytosis Not Reportable Microcytosis Not Reportable Macrocytosis Not Reportable Spherocytes Not Reportable Pappenheimer Bodies Not Reportable Sickle Cells Not Reportable Target Cells 1+ Tear Drop Cells Not Reportable Ovalocytes Not Reportable Helmet Cells Not Reportable [place] Bodies Not Reportable [place] Rings Not Reportable Ilia Cells Not Reportable Bite Cells Not Reportable Crenated Cell Not Reportable Elliptocytes Not Reportable Acanthocytes (Spur) Not Reportable Rouleaux Not Reportable Hemoglobin C Crystals Not Reportable Schistocytes Not Reportable Malaria parasites Not Reportable Oscar Bodies Not Reportable Hem Pathologist Commnt No PT 15.5 H INR 1.11 APTT 39.3 H ABG pH ABG pCO2 ABG pO2 ABG HCO3 ABG O2 Saturation ABG O2 Content ABG Base Excess ABG Hemoglobin ABG Carboxyhemoglobin ABG Methemoglobin Oxyhemoglobin FiO2 Sodium 136 L Potassium 3.4 L Chloride 91.9 L Carbon Dioxide 18 L Anion Gap 30 BUN 17 Creatinine 1.2 Estimated GFR > 60 BUN/Creatinine Ratio 14 Glucose 164 H Lactic Acid Calcium 9.0 Phosphorus Magnesium Total Bilirubin 18.90 H AST 396 H ALT 98 H Alkaline Phosphatase 454 H Ammonia C-Reactive Protein Total Protein 6.3 Albumin 3.4 L Albumin/Globulin Ratio 1.2 Fluid Type Fluid Color Fluid Appearance Fluid WBC Fluid RBC Fluid Seg Neutrophils Fluid Lymphocytes Fluid Reactive Lymphs Fluid Monocytes Fluid Eosinophils Fluid Basophils Plasma/Serum Alcohol 02/12/21 02/12/21 02/13/21 22:17 Unknown 04:40 WBC RBC Hgb Hct MCV MCH MCHC RDW Plt Count Eos % (Auto) Add Manual Diff Total Counted Seg Neutrophils % Seg Neuts % (Manual) Lymphocytes % (Manual) Monocytes % (Manual) Nucleated RBC % Seg Neutrophils # Man Band Neutrophils # Lymphocytes # (Manual) Abs React Lymphs (Man) Monocytes # (Manual) Eosinophils # (Manual) Basophils # (Manual) Metamyelocytes # Myelocytes # Promyelocytes # Blast Cells # WBC Morphology Hypersegmented Neuts Hyposegmented Neuts Hypogranular Neuts Smudge Cells Toxic Granulation Toxic Vacuolation Dohle Bodies Pelger-Huet Anomaly Airam Rods Platelet Estimate Clumped Platelets Plt Clumps, EDTA Large Platelets Giant Platelets Platelet Satelliting Plt Morphology Comment RBC Morphology Dimorphic RBCs Polychromasia Hypochromasia Poikilocytosis Anisocytosis Microcytosis Macrocytosis Spherocytes Pappenheimer Bodies Sickle Cells Target Cells Tear Drop Cells Ovalocytes Helmet Cells [place] Bodies [place] Rings [place] Cells Bite Cells Crenated Cell Elliptocytes Acanthocytes (Spur) Rouleaux Hemoglobin C Crystals Schistocytes Malaria parasites Oscar Bodies Hem Pathologist Commnt PT INR APTT ABG pH 7.310 L ABG pCO2 32.0 ABG pO2 81.4 ABG HCO3 15.8 L ABG O2 Saturation 95.2 ABG O2 Content 17.3 ABG Base Excess -9.3 L ABG Hemoglobin 13.2 L ABG Carboxyhemoglobin 2.0 ABG Methemoglobin 0.6 Oxyhemoglobin 92.7 L FiO2 100 Sodium Potassium Chloride Carbon Dioxide Anion Gap BUN Creatinine Estimated GFR BUN/Creatinine Ratio Glucose Lactic Acid Calcium Phosphorus Magnesium 1.50 L Total Bilirubin AST ALT Alkaline Phosphatase Ammonia C-Reactive Protein Total Protein Albumin Albumin/Globulin Ratio Fluid Type Fluid Color Fluid Appearance Fluid WBC Fluid RBC Fluid Seg Neutrophils Fluid Lymphocytes Fluid Reactive Lymphs Fluid Monocytes Fluid Eosinophils Fluid Basophils Plasma/Serum Alcohol 0.32 H 02/13/21 02/13/21 02/13/21 05:00 08:17 11:20 WBC 8.7 RBC 3.51 L Hgb 11.7 L Hct 38.3 MCV 109 H MCH 33 H MCHC 31 L RDW 18.0 H Plt Count 82 L Eos % (Auto) Add Manual Diff Total Counted Seg Neutrophils % Seg Neuts % (Manual) Lymphocytes % (Manual) Monocytes % (Manual) Nucleated RBC % Seg Neutrophils # Man Band Neutrophils # Lymphocytes # (Manual) Abs React Lymphs (Man) Monocytes # (Manual) Eosinophils # (Manual) Basophils # (Manual) Metamyelocytes # Myelocytes # Promyelocytes # Blast Cells # WBC Morphology Hypersegmented Neuts Hyposegmented Neuts Hypogranular Neuts Smudge Cells Toxic Granulation Toxic Vacuolation Dohle Bodies Pelger-Huet Anomaly Airam Rods Platelet Estimate Clumped Platelets Plt Clumps, EDTA Large Platelets Giant Platelets Platelet Satelliting Plt Morphology Comment RBC Morphology Dimorphic RBCs Polychromasia Hypochromasia Poikilocytosis Anisocytosis Microcytosis Macrocytosis Spherocytes Pappenheimer Bodies Sickle Cells Target Cells Tear Drop Cells Ovalocytes Helmet Cells [place] Bodies [place] Rings [place] Cells Bite Cells Crenated Cell Elliptocytes Acanthocytes (Spur) Rouleaux Hemoglobin C Crystals Schistocytes Malaria parasites Oscar Bodies Hem Pathologist Commnt PT INR APTT ABG pH 7.229 L ABG pCO2 31.6 ABG pO2 101.6 H ABG HCO3 12.9 L ABG O2 Saturation 96.9 ABG O2 Content 17.7 ABG Base Excess -13.4 L ABG Hemoglobin 13.2 L ABG Carboxyhemoglobin 1.5 ABG Methemoglobin 0.7 Oxyhemoglobin 94.8 L FiO2 100 Sodium Potassium Chloride Carbon Dioxide Anion Gap BUN Creatinine Estimated GFR BUN/Creatinine Ratio Glucose Lactic Acid Calcium Phosphorus Magnesium Total Bilirubin AST ALT Alkaline Phosphatase Ammonia 68.0 H C-Reactive Protein Total Protein Albumin Albumin/Globulin Ratio Fluid Type Fluid Color Fluid Appearance Fluid WBC Fluid RBC Fluid Seg Neutrophils Fluid Lymphocytes Fluid Reactive Lymphs Fluid Monocytes Fluid Eosinophils Fluid Basophils Plasma/Serum Alcohol 02/13/21 02/13/21 02/13/21 11:20 11:20 12:15 WBC RBC Hgb Hct MCV MCH MCHC RDW Plt Count Eos % (Auto) Add Manual Diff Total Counted Seg Neutrophils % Seg Neuts % (Manual) Lymphocytes % (Manual) Monocytes % (Manual) Nucleated RBC % Seg Neutrophils # Man Band Neutrophils # Lymphocytes # (Manual) Abs React Lymphs (Man) Monocytes # (Manual) Eosinophils # (Manual) Basophils # (Manual) Metamyelocytes # Myelocytes # Promyelocytes # Blast Cells # WBC Morphology Hypersegmented Neuts Hyposegmented Neuts Hypogranular Neuts Smudge Cells Toxic Granulation Toxic Vacuolation Dohle Bodies Pelger-Huet Anomaly Airam Rods Platelet Estimate Clumped Platelets Plt Clumps, EDTA Large Platelets Giant Platelets Platelet Satelliting Plt Morphology Comment RBC Morphology Dimorphic RBCs Polychromasia Hypochromasia Poikilocytosis Anisocytosis Microcytosis Macrocytosis Spherocytes Pappenheimer Bodies Sickle Cells Target Cells Tear Drop Cells Ovalocytes Helmet Cells [place] Bodies [place] Rings [place] Cells Bite Cells Crenated Cell Elliptocytes Acanthocytes (Spur) Rouleaux Hemoglobin C Crystals Schistocytes Malaria parasites Oscar Bodies Hem Pathologist Commnt PT INR APTT ABG pH ABG pCO2 ABG pO2 ABG HCO3 ABG O2 Saturation ABG O2 Content ABG Base Excess ABG Hemoglobin ABG Carboxyhemoglobin ABG Methemoglobin Oxyhemoglobin FiO2 Sodium Potassium Chloride Carbon Dioxide Anion Gap BUN Creatinine Estimated GFR BUN/Creatinine Ratio Glucose Lactic Acid 11.70 H* Calcium Phosphorus 2.80 Magnesium Total Bilirubin AST ALT Alkaline Phosphatase Ammonia C-Reactive Protein 5.40 H Total Protein Albumin Albumin/Globulin Ratio Fluid Type Thoracentesis Fluid Color Nae Fluid Appearance Hazy Fluid WBC 63 Fluid RBC 800 Fluid Seg Neutrophils 11.3 Fluid Lymphocytes 12.5 Fluid Reactive Lymphs 2.5 Fluid Monocytes 72.5 Fluid Eosinophils 0 Fluid Basophils 1.3 Plasma/Serum Alcohol - Imaging CT Scan: report reviewed Assessment and Plan 1. Abnormal liver enzymes - history of alcohol abuse, pattern of elevation consistent with alcoholic hepatitis. likely has underlying cirrhosis as well. DF < 32 with admission labs. trend liver enzymes/INR and supportive care otherwise from gi stand point 2. Respiratory failure - intubated, s/p thoracentesis for large pleural effusion. further management per primary/ICU
[2021-02-13] MEDS ORDERED: SODIUM CHLORIDE 0.9% 500 ML 500 ML ONE (14:26)
[2021-02-13 14:28] LABS: Large Platelets Few; Platelet Estimate Consistent w Auto; RBC Morphology Normal; Target Cells 1+; Total Cells Counted 100
[2021-02-13] MEDS: cefTRIAXone/NS 2 GM/100 ML 2 GM/100 ML BAG IV SCH (14:38)
[2021-02-13 15:04] LABS: Calcium 8.6 mg/dL (8.4-10.2)
[2021-02-13] MEDS: AZITHROMYCIN/NS 500 MG/250 ML 500 MG/250 ML BAG IV SCH (15:24)
[2021-02-13] MEDS ORDERED: fentaNYL 100 MCG/2 ML INJ IV PRN (16:00)
[2021-02-13] MEDS: fentaNYL DRIP Premix 2,000 MCG/100 ML BAG IV SCH ×2 (16:37→23:32)
[2021-02-13] MEDS ORDERED: SIMPLE SYRUP 15 ML FEEDTUBE PRN ×2 (17:30)
[2021-02-13] MEDS ORDERED: LIPASE 10,500/PROTEASE 25,000/AMYLASE 43,750 (UNITS) DR CAP FEEDTUBE PRN (17:30)
[2021-02-13] MEDS ORDERED: SODIUM BICARBONATE 325 MG TAB FEEDTUBE PRN (17:30)
--- NOTE | 2021-02-13 17:43 | Electrocardiograph Report ---
[facility] Test Date: 2021-02-13 Test Time: 00:00:50 Pat Name: YOAN LAWRENCE Department: Room: A253 1 Gender: M Director Custom: JUAN C : 1975 Requested By: DL CANO Order Number: [id number] Reading MD: Gerda Webb Measurements Intervals [place] Rate: 120 P: 0 [place]: 143 QRS: -59 QRSD: 158 T: 144 QT: 347 QTc: 491 Interpretive Statements Sinus tachycardia Right bundle branch block Inferior infarct, old No previous ECG available for comparison Electronically Signed On 02-13-2021 17:42:47 EST by Gerda Webb
--- NOTE | 2021-02-14 02:11 | Consultation ---
DATE OF CONSULTATION: 02/13/2021 PULMONARY CRITICAL CARE CONSULT NOTE CONSULTING PHYSICIAN: Dr. Alise Pinto. REASON FOR CONSULTATION: Acute hypoxemic respiratory failure, on mechanical ventilatory support; decompensated liver disease as well as large right pleural effusion. CHIEF COMPLAINT AND HISTORY OF PRESENT ILLNESS: The patient is a now 45-year-old male with past medical history significant amongst other things for a diagnosis of decompensated liver failure, who at the time of my evaluation was intubated and unable to give me a history. He came in to the Emergency Room, brought in for shortness of breath, it had been going on for about 3 days. In the Emergency Room, he was hypoxemic. He got nebulizer, steroids. Oxygenation improved initially. He also has a history of recurrent ascites and reportedly gets his paracentesis done at [place]. The patient unfortunately continues to drink alcohol reportedly on a daily basis and has a known history of alcohol withdrawal. At some point in the Emergency Room, the patient suffered cardiac arrest and required intubation. He was found pulseless and apneic in the room, according to the records. When the ER physician arrived, she found him cyanotic. CPR was in progress at the time. Intubation was easy. There was return of spontaneous circulation. A central line was placed and he was transferred ultimately to the intensive care unit, not before needing to be started on Levophed drip. When I stopped by to see him, he was resting in bed, just post-emergent right thoracentesis. I do not have a history of vomiting or overt aspiration. Alcohol, tobacco use history is unknown and unfortunately I am unable to get that. This really is much of the history of presentation as I have. PAST MEDICAL HISTORY: Hypertension, chronic liver disease, alcohol abuse. PAST SURGICAL HISTORY: Unknown. MEDICATIONS: He was on at the time I stopped by to see him, according to the medication administration record included the following: Tylenol 650 mg p.o. q. 4 hours p.r.n. mild pain or fevers, Pepcid 20 mg IV b.i.d., lactulose 20 mg p.o. daily, CIWA protocol as an alcohol withdrawal protocol with Ativan. He has morphine sulfate 2 mg IV q. 4 hours p.r.n. moderate pain and 4 mg IV q. 4 hours p.r.n. severe pain. Levophed drip was going at 8 mcg/min, Zofran 4 mg IV q. 8 hours p.r.n. nausea and vomiting. Propofol drip was going at 15 mcg/kg/min. Senna docusate 1 tablet p.o. b.i.d. ALLERGIES: No known drug allergies. DIET: Well built gentleman. Acute weight loss or gain history is unknown. He does have some central obesity. FAMILY AND SOCIAL HISTORY: Reportedly, lives in the community; however, family, social history is unobtainable except to say that he has a history of alcohol abuse and reportedly continues to drink. REVIEW OF SYSTEMS: Unobtainable secondary to the patient's medical and mental condition. Since he has been here, no gross hematochezia or melena, no gross hematuria, no bloody tracheal secretions, no witnessed seizures have been reported. Review of systems otherwise unobtainable or as in body of the history above. PHYSICAL EXAMINATION: VITAL SIGNS: At presentation, he was afebrile, temperature 98.9 degrees Fahrenheit with a pulse of 70, respiratory rate of 19, blood pressure 132/83, O2 sats were 94%. Inspired oxygen concentration at the time was not recorded. When I stopped by to see him, O2 sats were 98%, that was on the mechanical ventilator. AC PRVC mode, tidal volumes 500, rate of 20, PEEP of 6 and 100% FiO2. He was breathing about 34 times a minute. GENERAL: He is a middle-aged obese male. HEAD, EYES, EARS, NOSE AND THROAT: Normocephalic, atraumatic on the mechanical ventilator with mildly increased respiratory effort at rest. He is icteric. No conjunctival erythema. Oropharynx is moist. Endotracheal tube is taped at the lips around 25 cm. NECK: No gross jugular venous distention, no thyromegaly. Grossly, there were no palpable lymph nodes in the supraclavicular or submandibular lymph node chains. LUNGS: Auscultation of both lung maza revealed diminished breath sounds in the right lung, clear on the left side. No wheezing. HEART: Sounds 1 and 2 are heard at the time of my evaluation. Regular rate and rhythm without overt rubs or murmurs. ABDOMEN: Soft, full, protuberant, nontender. No palpable hepatosplenomegaly. EXTREMITIES: Without overt digital clubbing or cyanosis. No pedal edema. Pedal pulses were 2+ bilaterally. NEUROLOGICAL: Pupils are equal, round, about 5 mm, reactive to light. Extraocular muscle movements cannot be assessed. He was sedated. SKIN: Normal turgor in the areas examined without overt cellulitis or rash. He did have some icterus to his skin. Please see the wound care nurses' notes for full description of his skin. PSYCHIATRIC: Mood and affect could not be assessed. He was sedated. LABORATORY DATA: From my review are as follows: Admission white cell count 8500, hemoglobin 13.7, hematocrit 43.6, platelet count was 73. No band forms on the manual differential. INR was 1.11. Arterial blood gas showed a pH of 7.31, pCO2 of 32, pO2 of 81 that was on 100% FiO2 at presentation. Most recent gas showed a pH of 7.23, pCO2 of 32 and a pO2 of 102. Serum sodium was 136, potassium 3.4, chloride 92, bicarbonate 18. BUN 17, creatinine 1.2. Glucose was 162. Magnesium was low at 1.5. Total bilirubin 18.9, AST 396, ALT 98, alkaline phosphatase 458. Ammonia was up at 68. Alcohol level was high at 0.32. A chest x-ray was done. It shows a large right pleural effusion. Endotracheal tube tip appears to be in good position on the level of the clavicular heads and actually is difficult to see on the chest x-ray. Ultrasound of the chest was done. It did confirm a large right pleural effusion. ASSESSMENT: 1. Acute hypoxemic respiratory failure, on mechanical ventilatory support. 2. Cardiac arrest with return of spontaneous circulation. 3. Large right pleural effusion. 4. Decompensated liver failure. 5. History of alcohol abuse, at risk for withdrawal. 6. History of liver cirrhosis. 7. Thrombocytopenia. 8. Oropharyngeal dysphagia. 9. Hyperbilirubinemia. 10. Elevated serum transaminases. 11. Hyperammonemia. PLAN: He will be kept on full mechanical ventilatory support. Thoracentesis has been done, 1600 mL of serous yellow-colored fluid was obtained. Post-procedure chest x-ray is pending. I will repeat the arterial blood gas at about 9:00 p.m. today and make adjustments as necessary. With the thoracentesis hopefully ventilation improves and we should get some respiratory compensation for the acidosis. I will hold on empiric bicarbonate with supplementation at this point. Crain catheter is in place. We will keep a watch on his inputs and outputs closely. I will be ordering a phosphorus level. We will be replacing the magnesium level. I will be starting him on lactulose for his hyperammonemia. Enteral nutrition will be the feeding modality of choice. I will be holding on empiric antibiotic therapy at this time. He will continue the CIWA protocol. I should mention he is actually on lactulose. We will repeat his ammonia levels down the road. He is appropriately on GI prophylaxis with Pepcid. DVT prophylaxis is with SCDs. Flu and pneumonia vaccination will be addressed per protocol. A GI consultation has been placed. Thank you very much for the consult. We will follow along and make further recommendations as picture progresses/becomes clearer. He is critically ill on life-sustaining interventions including mechanical ventilatory support, at very high risk of from cardiopulmonary and GI system decompensation. At this time, I spent about 35-40 minutes of critical care time without overlap and excluding any procedural time that may be necessary. I should mention Levophed will be weaned to keep mean arterial pressures greater than or equal to about 60 mmHg. TID: [id number] RECEIPT: [id number] PARMJIT/JORDY/HARITHA
--- NOTE | 2021-02-14 04:26 | XRay Report ---
CHEST 1 VIEW 02/14/2021 2:56 AM INDICATION / CLINICAL INFORMATION: follow up respiratory failure. COMPARISON: One view of the chest from 02/13/2021 FINDINGS: SUPPORT DEVICES: Unchanged. HEART / MEDIASTINUM: Stable. LUNGS / PLEURA: Slightly improved aeration of the right lung. The left lung is clear. No significant pleural effusion. No pneumothorax. ADDITIONAL FINDINGS: No significant additional findings. IMPRESSION: Slightly improved aeration of the right lung without other significant interval changes. Signer Name: José Manuel Craven MD Signed: 02/14/2021 4:22 AM Workstation Name: [id number]
[2021-02-14 05:28] LABS: Hemoglobin 11.6 gm/dl (11.8-15.2); Mean Corpuscular HGB Conc 31 % (32-34); Mean Corpuscular Volume 110 fl (84-94); Platelet Count 61 K/mm3 (140-440); Red Blood Count 3.36 M/mm3 (3.65-5.03); Red Cell Distribution Width 17.2 % (13.2-15.2)
[2021-02-14 07:31] LABS: Total Cells Counted 100
[2021-02-14 07:32] LABS: Anisocytosis 1+; Macrocytosis 1+; Platelet Estimate Consistent w Auto
[2021-02-14] MEDS: fentaNYL DRIP Premix 2,000 MCG/100 ML BAG IV SCH (07:45)
[2021-02-14] MEDS: NORepinephrine/NS 8 MG-250 ML 8 MG/250 ML INFUS..BTL IV SCH (09:12)
[2021-02-14 09:54] LABS: ABG Base Excess -1.2 mmol/L (-2.0-3.0); ABG HCO3 23.4 mmol/L (20.0-26.0); ABG Methemoglobin 0.6 % (0.0-1.5); ABG Oxygen Saturation 96.4 % (95.0-99.0); ABG PH 7.396 pH Units (7.350-7.450); ABG PO2 81.2 mm Hg (80.0-90.0)
--- NOTE | 2021-02-14 09:55 | Consultation ---
History of Present Illness - Reason for Consult acute renal failure - History of Present Illness Mr. Davis is a 45yo with hx of cirrhosis and alcohol abuse who presented to the ED with difficulty breathing and generalized weakness. Per medical record, upon arrival in the emergency room oxygen saturation was in the low 90s; patient received nebulizer treatment and steroids with improvement of oxygen saturation to about 96%. Work-up in the emergency room notable for thrombocytopenia of 73,000, mild hypokalemia of 3.4, elevated AST and ALT, elevated ammonia level 68. Chest x-ray shows complete opacification of the right hemithorax likely representing a large pleural effusion and or atelectasis. CT of the abdomen and pelvis reveals hepatomegaly and hepatic steatosis. Very large right pleural effusion. During the course of his stay in the emergency room patient went into respiratory distress and was subsequently intubated. At admission, patient's SCr 1.2mg/dL. However, renal function has declined and today, SCr 3.7mg/dL. Bailee's mother is currently at bedside. She reports a prolonged hospitalization (47 days) at [facility]. Hospitalization was complicated by liver failure and what she describes as HRS. Past History Past Medical History: hypertension, liver disease, other (alcohol abuse) Past Surgical History: No surgical history Social history: no significant social history Family history: no significant family history Medications and Allergies Allergies Allergy/AdvReac Type Severity Reaction Status Date / Time No Known Allergies Allergy Verified 02/13/21 01:35 Active Meds: Active Medications Acetaminophen (Acetaminophen 325 Mg Tab) 650 mg PO Q4H PRN PRN Reason: Pain MILD(1-3)/Fever >100.5/GIORDANO Last Admin: 02/13/21 18:06 Dose: 650 mg Documented by: Albumin Human (Albumin Human 25% (25 Gm/100 Ml) Inj) 25 gm IV Q4H LAURIE Stop: 02/14/21 22:01 Lipase/Protease/Amylase (Lipase 10,500/Protease 25,000/Amylase 43,750 (Units) Dr Kwong) 1 each FEEDTUBE PRN PRN PRN Reason: For Clogged Feeding Tube Famotidine (Famotidine 10 Mg Tab) 10 mg FEEDTUBE BID LAURIE Fentanyl (Fentanyl 100 Mcg/2 Ml Inj) 50 mcg IV Q10MIN PRN PRN Reason: ANALGESIA Hydrophilic Ointment (Lip Therapy Vaseline) 1 applic TP Q2HR PRN PRN Reason: Dry Lips Propofol (Diprivan 10 Mg/Ml) 1,000 mg in 100 mls @ 2.517 mls/hr IV TITR LAURIE; Protocol Last Titration: 02/14/21 08:55 Dose: Infused Documented by: NORepinephrine/NS 8 MG-250 ML (Norepinephrine/Ns 8 Mg-250 Ml (Double Conc)) 8 mg in 250 mls @ 3.75 mls/hr IV TITRATE LAURIE; Protocol Last Admin: 02/14/21 09:12 Dose: 4 mcg/min, 7.5 mls/hr Documented by: Sodium Bicarbonate 150 meq/ (Dextrose) 1,150 mls @ 100 mls/hr IV DIRECT LAURIE Stop: 02/16/21 01:29 Last Admin: 02/13/21 15:25 Dose: 100 mls/hr Documented by: Azithromycin (Zithromax/Ns) 500 mg in 250 mls @ 250 mls/hr IV Q24H LAURIE Stop: 02/15/21 14:59 Last Admin: 02/13/21 15:24 Dose: 250 mls/hr Documented by: Ceftriaxone Sodium (Rocephin/Ns 2 Gm/100 Ml) 2 gm in 100 mls @ 200 mls/hr IV Q 24H LAURIE; Protocol Stop: 02/17/21 15:29 Last Admin: 02/13/21 14:38 Dose: 200 mls/hr Documented by: Fentanyl Citrate (Fentanyl Drip Premix) 2,000 mcg in 100 mls @ 4.196 mls/hr IV TITR LAURIE; Protocol Last Admin: 02/14/21 07:45 Dose: 2 mcg/kg/hr, 8.392 mls/hr Documented by: Potassium Phosphate 45 mmol/ (Sodium Chloride) 515 mls @ 85 mls/hr IV ONCE ONE Stop: 02/14/21 14:21 Lactulose (Lactulose 20 Gm/30 Ml Oral Liqd) 20 gm PO QDAY LAURIE Last Admin: 02/13/21 11:09 Dose: 20 gm Documented by: Lorazepam (Lorazepam 2 Mg/Ml Vial) 2 mg IV Q1H PRN PRN Reason: CIWA-Ar 8-15 Last Admin: 02/13/21 02:07 Dose: 2 mg Documented by: Lorazepam (Lorazepam 2 Mg/Ml Vial) 4 mg IV Q1H PRN PRN Reason: CIWA-Ar 16-25 Magnesium Hydroxide (Magnesium Hydroxide (Mom) Oral Liqd Udc) 30 ml PO Q4H PRN PRN Reason: Constipation Morphine Sulfate (Morphine 2 Mg/1 Ml Inj) 2 mg IV Q4H PRN PRN Reason: Pain, Moderate (4-6) Morphine Sulfate (Morphine 4 Mg/1 Ml Inj) 4 mg IV Q4H PRN PRN Reason: Pain , Severe (7-10) Multi-Ingred Cream/Lotion/Oil/Oint (Mineral Oil/Petrolatum, White Ophth Oint 3.5 Gm) 1 applic OU Q4HR PRN PRN Reason: Dry Eye(s) Ondansetron HCl (Ondansetron 4 Mg/2 Ml Inj) 4 mg IV Q8H PRN PRN Reason: Nausea And Vomiting Senna/Docusate Sodium (Sennosides/Docusate Sodium 8.6/50 Mg Tab) 1 tab FEEDTUBE BID [facility] Last Admin: 02/13/21 22:02 Dose: 1 tab Documented by: Simple Syrup (Simple Syrup 15 Ml) 15 ml FEEDTUBE PRN PRN PRN Reason: Hypoglycemia Simple Syrup (Simple Syrup 15 Ml) 30 ml FEEDTUBE PRN PRN PRN Reason: Hypoglycemia Sodium Bicarbonate (Sodium Bicarbonate 325 Mg Tab) 325 mg FEEDTUBE PRN PRN PRN Reason: For Clogged Feeding Tube Sodium Chloride (Sodium Chloride 0.9% 10 Ml Flush Syringe) 10 ml IV BID [facility] Last Admin: 02/13/21 22:02 Dose: 10 ml Documented by: Sodium Chloride (Sodium Chloride 0.9% 10 Ml Flush Syringe) 10 ml IV PRN PRN PRN Reason: LINE FLUSH Review of Systems ROS unobtainable: due to endotracheal tube Exam - Vital Signs Vital signs: Vital Signs Temp Pulse Resp BP Pulse Ox 98.9 F 70 19 132/83 94 02/12/21 21:56 02/12/21 21:56 02/12/21 21:56 02/12/21 21:56 02/12/21 21:56 - General Appearance General appearance: well-developed, well-nourished, intubated EENT: ATNC, other (ETT in place) Respiratory: Other (coarse breath sounds) Heart: regular, S1S2 Gastrointestinal: Present: hypoactive bowel sounds Integumentary: other (jaundiced) Results - Lab Results 02/15/21 04:20 02/14/21 04:00 Most recent lab results ABG pH 7.229 pH Units (7.350-7.450) L 02/13/21 08:17 ABG pCO2 31.6 mm Hg 02/13/21 08:17 ABG pO2 101.6 mm Hg (80.0-90.0) H 02/13/21 08:17 ABG HCO3 12.9 mmol/L (20.0-26.0) L 02/13/21 08:17 ABG O2 Saturation 96.9 % (95.0-99.0) 02/13/21 08:17 Calcium 8.0 mg/dL (8.4-10.2) L 02/14/21 04:00 Phosphorus 1.00 mg/dL (2.5-4.5) L D 02/14/21 04:00 Magnesium 2.70 mg/dL (1.7-2.3) H 02/14/21 04:00 Assessment and Plan Impression: * Oligo/anuric NAVDEEP secondary to ischemic ATN s/p cardiac arrest vs HRS * Cardiac arrest * Acute hypoxic respiratory failure * Pleural effusion, large right * Alcoholic hepatitis * Liver cirrhosis * Abdominal ascites * Lactic acidosis Plan: * Renal prognosis is guarded. May likely require hemodialysis. Will attempt conservative management * Albumin 25g q4h * Pressors prn to maintain MAP >65 * Vent management per CCM * Dose medications for renal function * Avoid nephrotoxins * Maintain indwelling keita for strict I/O in critically ill patient * Discussed with mother who is at bedside.
[2021-02-14] MEDS: FAMOTIDINE 10 MG TAB FEEDTUBE SCH ×2 (10:13→21:54)
[2021-02-14] MEDS: SENNOSIDES/DOCUSATE SODIUM 8.6/50 MG TAB FEEDTUBE SCH ×2 (10:13→21:54)
[2021-02-14] MEDS: LACTULOSE 20 GM/30 ML ORAL LIQD PO SCH (10:13)
[2021-02-14] MEDS ORDERED: SODIUM PHOSPHATE 45 MMOL in SODIUM CHLORIDE 0.9% 500 ML 500 ML IV SCH (11:00)
[2021-02-14] MEDS: SODIUM BICARBONATE 150 MEQ in DEXTROSE 5% IN WATER 1,000 ML IV SCH (11:03)
[2021-02-14] MEDS: ALBUMIN HUMAN 25% (25 GM/100 ML) INJ IV SCH ×2 (11:05→17:18)
--- NOTE | 2021-02-14 11:45 | Progress Note ---
Assessment and Plan Assessment and plan: This a 45-year-old male with a known past medical history of ETOH abuse, alcohol induced liver cirrhosis with ascites, had multiple paracenteses in the past admitted for respiratory distress. While in the ED coded and had a cardiac arrest with ROSC. Patient is now intubated on ventilatory support transferred to ICU for further management. Hospital Course to Date: 02/13: Patient seen and examined at the bedside. Patient is intubated and sedated on low dose propofol, on levophed for hypotension. Patient pupils are round and reactive with + gag and cough. Patient is also jaundice in appearance, abdomen is distended with no bowel sounds. Patient is s/p right thoracentesis, 1600cc drained. Repeat CXR ordered. Post cardiac arrest labs with lactic acidosis 11.70, wbcs normal, with worsen kidney function, most likely reactive post the code. Bcarb gtt was initiated and: orders placed for panculture. Given patient's presentation with large right pleural effusion, will also treat patient empirical for possible CAP, orders placed for [id number]. Will continue to trend CBC, lactic, and BMP. 02/14: Patient mentation is unchanged, remains intubated and on low dose fen tanyl this am. Patient is unresponsive, pupils are round and reactive with + gag and cough. Plan for sedation vacation today. Repeat CXR post thoracentesis with slight improved, right side of lung is still white out. Patient febrile overnight, continue current IV abx, pending culture data. IR consulted for possible Chest tube placement. Kidney function worsen this am despite IV rehydration, no urine out in last 24hrs, Nephrology consulted. Phosp repleted, repeat lab in the am. Assessment and Plan #Neuro: Acute Metabolic Encephalopathy #ETOH Abuse - Patient is intubated and on low dose fentanyl - Pupils are reactive with + gag and cough, however patient remains unresponsive - Plan for sedation vacation today - Ammonia 68 - Last alcohol intake was about 4 hours prior - Alcohol level 0.32 - s/p X1 dose of lactulose in the ED - Repeat ammonia level in the am - Possible CT head if patient mentation is unchanged in the next 24hrs #S/p Cardiac Arrest with ROSC #Hypotension #Tachycardia #Septic Kelly - Patient coded in the ED, asystole on the monitor - Resuscitative measures CPR/ACLS ROSC achieved after 2 round of Epi - ST on the monitor this am - Now on levophed gtt - Maintain adequate perfusion - Continue rehydration with cont. IVF - Continue blood pressure monitor per protocol - Maintain MAP above 65 - 2D echo pending #Acute Hypoxemic Respiratory Failure #Right Pleural Effusion #CAP - 02/13 Intubated in the ED post cardiac arrest - Vent Setting:PRVC- 100%,6,20,500 - This am ABG noted - CCM consulted, appreciate recommendations - Wean vent setting tolerated per CCM - Imagings revealed large right pleural effusion - 02/13 s/p right thoracentesis, 1600cc drained - Repeat CXR with mild improvement, Right side of lung remains white out - IR consulted for possible Chest tube placement - VAP bundle addressed - Aspiration precaution HOB above 30 - Daily SBT and SAT trials as tolerated - Daily ABG and CXR - Continue SPO2 monitoring for SPO2 goal above 92% #GI/Hepatic:Liver Cirrhosis with ascites #H/o of multiple Paracentesis #Transaminitis - Patient is jaundice in appearance, with elevated ammonia - Last paracentesis was done at [facility] about a month ago - GI on consult - Continue current IVF for hydration - Trend LFTs - Orders placed for enteral nutrition - Nutrition consulted - Continue PPI- Pepcid #: Acute Kidney Injury(NAVDEEP) most likely ATN #Hypophosphatemia #Hypokalemia- improved - Patient initial Scr. was 1.1, kidney function declined cardiac arrest - Scr. worsen despite IV hydration, 3.7 this am - Crain in place, no urine out in last 24hrs - Nephrology consulted - Strict intake and output - Avoid nephrotoxic medications; Renally dose medications - Continue IVF for now - Monitor and replace electrolytes as needed - Trend BMP #Thrombocytopenia - Mostly related to patient's liver issues - Will hold AC at this time - Continue to monitor for now, Trend CBC - Bleeding precaution and monitor for s/s of active bleeding - SCDs to bilateral lower extremities while in bed #ID:Septic Shock #Lactic Acidosis #Right Pleural Effusion #CAP - Elevated lactic, tachycardic, and hypotensive now on pressors - WBcs normal, febrile overnight TMAX 102.2 - Blood and sputum cultures pending - COVID swab neg - Continue empiric ABx- Rocephin and Azithromycin - Continue to F/U on B.cult - Daily CBC monitor - Consider ID consult if fevers persist or/and if leukocytosis occur #Endo:Hyperglycemia - BG check and SSI Q6hrs while on TF - Avoid hypoglycemia The high probability of a clinically significant, sudden or life threatening deterioration of the [multiple] system(s) required my full and direct attention, intervention and personal management. The aggregate critical care time was [60] minutes. This time is in addition to time spent performing reported procedures but includes the following: [x] Data Review and interpretation [x] Patient assessment and monitoring of vital signs [x] Documentation [x] Medication orders and management Disposition Plan: ICU Total Time Spent with Patient (Minutes): 60 History Interval history: Patient seen and examined at the bedside. Patient remains intubated and sedated, on low dose fentynal this am. Remains on levophed gtt. KILO overnight Hospitalist Physical - Constitutional Vitals: Temp Pulse Resp BP Pulse Ox 100.8 F H 121 H 20 98/56 95 02/14/21 08:00 02/14/21 09:00 02/14/21 09:00 02/14/21 09:00 02/14/21 09:00 General appearance: Present: mild distress, other (Intubated on low dose sedatio n, unresponsive) - EENT Eyes: Present: PERRL - Respiratory Respiratory effort: accessory muscle use Respiratory: bilateral: rhonchi - Cardiovascular Rhythm: regular Heart Sounds: Present: S1 & S2 - Extremities Extremities: no ischemia, pulses intact, pulses symmetrical Extremity abnormal: edema - Peripheral Assessment Generalized Edema Type: Non-pitting Edema Degree: 1+ Capillary Refill: < 3 seconds Skin Temperature: Warm Peripheral Pulses: within normal limits - Abdominal General gastrointestinal: distended, rigid, absent bowel sounds - Integumentary Integumentary: Present: warm, dry, jaundice - Psychiatric Psychiatric: other (unresponsive) - Neurologic Neurologic: other (unresponsive) - Allied Health Allied health notes reviewed: nursing Results - Labs CBC & Chem 7: 02/14/21 04:00 02/14/21 04:00 Labs: Laboratory Last Values WBC 8.3 K/mm3 (4.5-11.0) 02/14/21 04:00 RBC 3.36 M/mm3 (3.65-5.03) L 02/14/21 04:00 Hgb 11.6 gm/dl (11.8-15.2) L 02/14/21 04:00 Hct 37.0 % (35.5-45.6) 02/14/21 04:00 MCV 110 fl (84-94) H 02/14/21 04:00 MCH 35 pg (28-32) H 02/14/21 04:00 MCHC 31 % (32-34) L 02/14/21 04:00 RDW 17.2 % (13.2-15.2) H 02/14/21 04:00 Plt Count 61 K/mm3 (140-440) L 02/14/21 04:00 Eos % (Auto) Pharmacy Associate 02/12/21 22:17 Add Manual Diff Complete 02/14/21 04:00 Total Counted 100 02/14/21 04:00 Seg Neutrophils % Pharmacy Associate 02/12/21 22:17 Seg Neuts % (Manual) 88.0 % (40.0-70.0) H 02/14/21 04:00 Band Neutrophils % 2.0 % 02/14/21 04:00 Lymphocytes % (Manual) 3.0 % (13.4-35.0) L 02/14/21 04:00 Monocytes % (Manual) 5.0 % (0.0-7.3) 02/14/21 04:00 Metamyelocytes % 2.0 % 02/14/21 04:00 Nucleated RBC % 2.0 % (0.0-0.9) H 02/14/21 04:00 Seg Neutrophils # Man 0.0 K/mm3 (1.8-7.7) L 02/14/21 04:00 Band Neutrophils # 0.0 K/mm3 02/14/21 04:00 Lymphocytes # (Manual) 0.0 K/mm3 (1.2-5.4) L 02/14/21 04:00 Abs React Lymphs (Man) 0.0 K/mm3 02/14/21 04:00 Monocytes # (Manual) 0.0 K/mm3 (0.0-0.8) 02/14/21 04:00 Eosinophils # (Manual) 0.0 K/mm3 (0.0-0.4) 02/14/21 04:00 Basophils # (Manual) 0.0 K/mm3 (0.0-0.1) 02/14/21 04:00 Metamyelocytes # 0.0 K/mm3 02/14/21 04:00 Myelocytes # 0.0 K/mm3 02/14/21 04:00 Promyelocytes # 0.0 K/mm3 02/14/21 04:00 Blast Cells # 0.0 K/mm3 02/14/21 04:00 WBC Morphology Not Reportable 02/14/21 04:00 Hypersegmented Neuts Not Reportable 02/14/21 04:00 Hyposegmented Neuts Not Reportable 02/14/21 04:00 Hypogranular Neuts Not Reportable 02/14/21 04:00 Smudge Cells Not Reportable 02/14/21 04:00 Toxic Granulation Not Reportable 02/14/21 04:00 Toxic Vacuolation Not Reportable 02/14/21 04:00 Dohle Bodies Not Reportable 02/14/21 04:00 Pelger-Huet Anomaly Not Reportable 02/14/21 04:00 Airam Rods Not Reportable 02/14/21 04:00 Platelet Estimate Consistent w auto 02/14/21 04:00 Clumped Platelets Not Reportable 02/14/21 04:00 Plt Clumps, EDTA Not Reportable 02/14/21 04:00 Large Platelets Not Reportable 02/14/21 04:00 Giant Platelets Not Reportable 02/14/21 04:00 Platelet Satelliting Not Reportable 02/14/21 04:00 Plt Morphology Comment Not Reportable 02/14/21 04:00 RBC Morphology Not Reportable 02/14/21 04:00 Dimorphic RBCs Not Reportable 02/14/21 04:00 Polychromasia Not Reportable 02/14/21 04:00 Hypochromasia Not Reportable 02/14/21 04:00 Poikilocytosis Not Reportable 02/14/21 04:00 Anisocytosis 1+ 02/14/21 04:00 Microcytosis Not Reportable 02/14/21 04:00 Macrocytosis 1+ 02/14/21 04:00 Spherocytes Not Reportable 02/14/21 04:00 Pappenheimer Bodies Not Reportable 02/14/21 04:00 Sickle Cells Not Reportable 02/14/21 04:00 Target Cells Not Reportable 02/14/21 04:00 Tear Drop Cells Not Reportable 02/14/21 04:00 Ovalocytes Not Reportable 02/14/21 04:00 Helmet Cells Not Reportable 02/14/21 04:00 Davis-[place] Bodies Not Reportable 02/14/21 04:00 [place] Rings Not Reportable 02/14/21 04:00 Central Cells Not Reportable 02/14/21 04:00 Bite Cells Not Reportable 02/14/21 04:00 Crenated Cell Not Reportable 02/14/21 04:00 Elliptocytes Not Reportable 02/14/21 04:00 Acanthocytes (Spur) Not Reportable 02/14/21 04:00 Rouleaux Not Reportable 02/14/21 04:00 Hemoglobin C Crystals Not Reportable 02/14/21 04:00 Schistocytes Not Reportable 02/14/21 04:00 Malaria parasites Not Reportable 02/14/21 04:00 Oscar Bodies Not Reportable 02/14/21 04:00 Hem Pathologist Commnt No 02/14/21 04:00 PT 15.5 Sec. (12.2-14.9) H 02/12/21 22:17 INR 1.11 (0.87-1.13) 02/12/21 22:17 APTT 39.3 Sec. (24.2-36.6) H 02/12/21 22:17 ABG pH 7.396 pH Units (7.350-7.450) 02/14/21 09:03 ABG pCO2 39.0 mm Hg 02/14/21 09:03 ABG pO2 81.2 mm Hg (80.0-90.0) 02/14/21 09:03 ABG HCO3 23.4 mmol/L (20.0-26.0) 02/14/21 09:03 ABG O2 Saturation 96.4 % (95.0-99.0) 02/14/21 09:03 ABG O2 Content 15.4 (0.0-44) 02/14/21 09:03 ABG Base Excess -1.2 mmol/L (-2.0-3.0) 02/14/21 09:03 ABG Hemoglobin 11.5 gm/dl (14.0-18.0) L 02/14/21 09:03 ABG Carboxyhemoglobin 1.3 % (0.0-5.0) 02/14/21 09:03 ABG Methemoglobin 0.6 % (0.0-1.5) 02/14/21 09:03 Oxyhemoglobin 94.6 % (95.0-99.0) L 02/14/21 09:03 FiO2 100 % 02/14/21 09:03 Sodium 139 mmol/L (137-145) 02/14/21 04:00 Potassium 3.9 mmol/L (3.6-5.0) 02/14/21 04:00 Chloride 96.1 mmol/L (98-107) L 02/14/21 04:00 Carbon Dioxide 19 mmol/L (22-30) L D 02/14/21 04:00 Anion Gap 28 mmol/L 02/14/21 04:00 BUN 32 mg/dL (9-20) H 02/14/21 04:00 Creatinine 3.7 mg/dL (0.8-1.3) H D 02/14/21 04:00 Estimated GFR 18 ml/min 02/14/21 04:00 BUN/Creatinine Ratio 9 % 02/14/21 04:00 Glucose 157 mg/dL (75-100) H 02/14/21 04:00 POC Glucose 151 mg/dL (70-105) H 02/14/21 05:54 Lactic Acid 4.20 mmol/L (0.7-2.0) H* 02/14/21 04:00 Calcium 8.0 mg/dL (8.4-10.2) L 02/14/21 04:00 Phosphorus 1.00 mg/dL (2.5-4.5) L D 02/14/21 04:00 Magnesium 2.70 mg/dL (1.7-2.3) H 02/14/21 04:00 Total Bilirubin 19.70 mg/dL (0.1-1.2) H 02/13/21 11:20 AST 544 units/L (5-40) H 02/13/21 11:20 ALT 107 units/L (7-56) H 02/13/21 11:20 Alkaline Phosphatase 372 units/L (35-129) H 02/13/21 11:20 Ammonia 68.0 umol/L (25-60) H 02/13/21 05:00 Lactate Dehydrogenase 1244 units/L (91-180) H 02/13/21 11:20 C-Reactive Protein 5.40 mg/dL (0.00-1.30) H 02/13/21 11:20 Total Protein 5.7 g/dL (6.3-8.2) L 02/13/21 11:20 Albumin 3.0 g/dL (3.9-5) L 02/13/21 11:20 Albumin/Globulin Ratio 1.1 % 02/13/21 11:20 Fluid Type Thoracentesis 02/13/21 12:15 Fluid Color Nae 02/13/21 12:15 Fluid Appearance Hazy 02/13/21 12:15 Fluid WBC 63 /mm3 02/13/21 12:15 Fluid RBC 800 /mm3 02/13/21 12:15 Fluid Seg Neutrophils 11.3 % 02/13/21 12:15 Fluid Lymphocytes 12.5 % 02/13/21 12:15 Fluid Reactive Lymphs 2.5 % 02/13/21 12:15 Fluid Monocytes 72.5 % 02/13/21 12:15 Fluid Eosinophils 0 % 02/13/21 12:15 Fluid Basophils 1.3 % 02/13/21 12:15 Plasma/Serum Alcohol 0.32 % (0-0.07) H 02/12/21 22:17 Coronavirus (PCR) Negative (Negative) 02/13/21 Unknown Microbiology: Microbiology 02/13/21 13:53 Peripheral/Venous Blood Culture - Preliminary Culture in Progress 02/13/21 13:53 Peripheral/Venous Blood Culture - Preliminary Culture in Progress 02/13/21 08:19 Tracheal Aspirate Sputum Culture - Preliminary 02/13/21 12:15 Pleural Fluid - Pleura,Rt Lung Body Fluid Culture - Preliminary Crain/IV: Voiding Method Indwelling Catheter Active Medications - Current Medications Current Medications: Generic Name Dose Route Start Last Admin Trade Name Freq PRN Reason Stop Dose Admin Acetaminophen 650 mg 02/13/21 02:35 02/13/21 18:06 Acetaminophen 325 Mg Tab PO 650 mg Q4H PRN Administration Pain MILD(1-3)/Fever >100.5/GIORDANO Albumin Human 25 gm 02/14/21 11:00 02/14/21 11:05 Albumin Human 25% (25 Gm/100 Ml) Inj IV 02/14/21 23:01 25 gm Q4H LAURIE Administration Lipase/Protease/Amylase 1 each 02/13/21 17:30 Lipase 10,500/Protease 25,000/Amylase 43,750 (Units) Dr Varghese FEEDTUBE PRN PRN For Clogged Feeding Tube Famotidine 10 mg 02/14/21 10:00 02/14/21 10:13 Famotidine 10 Mg Tab FEEDTUBE 10 mg BID LAURIE Administration Fentanyl 50 mcg 02/13/21 16:00 Fentanyl 100 Mcg/2 Ml Inj IV Q10MIN PRN ANALGESIA Hydrophilic Ointment 1 applic 02/13/21 05:56 Lip Therapy Vaseline TP Q2HR PRN Dry Lips Propofol 1,000 mg in 100 mls @ 2.517 mls/hr 02/13/21 06:00 02/14/21 08:55 Diprivan 10 Mg/Ml IV Infused TITR LAURIE Titration Protocol 5 MCG/KG/MIN NORepinephrine/NS 8 MG-250 ML 8 mg in 250 mls @ 3.75 mls/hr 02/13/21 08:00 02/14/21 09:12 Norepinephrine/Ns 8 Mg-250 Ml (Double Conc) IV 4 mcg/min TITRATE LAURIE 7.5 mls/hr Administration Protocol 2 MCG/MIN Azithromycin 500 mg in 250 mls @ 250 mls/hr 02/13/21 14:00 02/13/21 15:24 Zithromax/Ns IV 02/15/21 14:59 250 mls/hr Q24H LAURIE Administration Ceftriaxone Sodium 2 gm in 100 mls @ 200 mls/hr 02/13/21 15:00 02/13/21 14:38 Rocephin/Ns 2 Gm/100 Ml IV 02/17/21 15:29 200 mls/hr Q24H LAURIE Administration Protocol Fentanyl Citrate 2,000 mcg in 100 mls @ 4.196 mls/hr 02/13/21 16:00 02/14/21 07:45 Fentanyl Drip Premix IV 2 mcg/kg/hr TITR LAURIE 8.392 mls/hr Administration Protocol 1 MCG/KG/HR Sodium Phosphate 45 mmol/ 515 mls @ 85 mls/hr 02/14/21 11:00 02/14/21 11:02 Sodium Chloride IV 02/14/21 17:00 85 mls/hr ONCE@1100 LAURIE Administration Sodium Bicarbonate 150 meq/ 1,150 mls @ 100 mls/hr 02/14/21 11:00 02/14/21 11:03 Dextrose IV 02/15/21 22:29 100 mls/hr DIRECT LAURIE Administration Lactulose 20 gm 02/13/21 10:00 02/14/21 10:13 Lactulose 20 Gm/30 Ml Oral Liqd PO 20 gm QDAY LAURIE Administration Lorazepam 2 mg 02/12/21 22:24 02/13/21 02:07 Lorazepam 2 Mg/Ml Vial IV 2 mg Q1H PRN Administration CIWA-Ar 8-15 Lorazepam 4 mg 02/12/21 22:24 Lorazepam 2 Mg/Ml Vial IV Q1H PRN CIWA-Ar 16-25 Magnesium Hydroxide 30 ml 02/13/21 02:35 Magnesium Hydroxide (Mom) Oral Liqd Udc PO Q4H PRN Constipation Morphine Sulfate 2 mg 02/13/21 02:35 Morphine 2 Mg/1 Ml Inj IV Q4H PRN Pain, Moderate (4-6) Morphine Sulfate 4 mg 02/13/21 02:35 Morphine 4 Mg/1 Ml Inj IV Q4H PRN Pain , Severe (7-10) Multi-Ingred Cream/Lotion/Oil/Oint 1 applic 02/13/21 05:56 Mineral Oil/Petrolatum, White Ophth Oint 3.5 Gm OU Q4HR PRN Dry Eye(s) Ondansetron HCl 4 mg 02/13/21 02:35 Ondansetron 4 Mg/2 Ml Inj IV Q8H PRN Nausea And Vomiting Senna/Docusate Sodium 1 tab 02/13/21 10:00 02/14/21 10:13 Sennosides/Docusate Sodium 8.6/50 Mg Tab FEEDTUBE 1 tab BID LAURIE Administration Simple Syrup 15 ml 02/13/21 17:30 Simple Syrup 15 Ml FEEDTUBE PRN PRN Hypoglycemia Simple Syrup 30 ml 02/13/21 17:30 Simple Syrup 15 Ml FEEDTUBE PRN PRN Hypoglycemia Sodium Bicarbonate 325 mg 02/13/21 17:30 Sodium Bicarbonate 325 Mg Tab FEEDTUBE PRN PRN For Clogged Feeding Tube Sodium Chloride 10 ml 02/13/21 10:00 02/13/21 22:02 Sodium Chloride 0.9% 10 Ml Flush Syringe IV 10 ml BID LAURIE Administration Sodium Chloride 10 ml 02/13/21 02:35 Sodium Chloride 0.9% 10 Ml Flush Syringe IV PRN PRN LINE FLUSH Nutrition/Malnutrition Assess - Dietary Evaluation Nutrition/Malnutrition Findings: Nutrition Notes Start: 02/13/21 16:19 Freq: Status: Active Protocol: Document 02/13/21 16:20 SKYE (Rec: 02/13/21 16:59 [email or web address]) Nutrition Notes Need for Assessment generated from: MD Order Initial or Follow up Assessment Current Diagnosis Hypertension Other Pertinent Diagnosis R-pleural effusion, Thrombocytopenia, EtOH abuse, Liver cirrhosis. Current Diet NPO (since 02/13), TF- Promote @ 77 ml/hr (B 02/14). Labs/Tests 02/13: Cl 94.7, CO2 12, BUN 21 , Crea 2.1, Glu 145, Lac Ac 11 .7, Tbili 19.7, AST 544, ALT 107, AlkPhos 372, NH3 68, LacDH 1244, C-RP 5.4, Tpro 5.7 , Alb 3.0. Pertinent Medications 02/13: Propofol 1000 mg in 100 ml @ 2.517 ml/hr, others nutritionally unremarkable. Height 5 ft 9 in Weight 83.915 kg [place] Body Weight (kg) 72.72 BMI 27.3 Weight Status Overweight Subjective/Other Information RD consult for write/mange TF. Pt underwent oral-endotracheal intubation. Percent of energy/protein needs met: Prescribed TF-Promote @ 77 ml/ hr provides for energy/protein needs (1,845 Kcal/115 g) during LOS; 90% Kcal; 100% AA. Burn Absent Trauma Absent GI Symptoms None Food Allergy No Skin Integrity/Comment Clear, warm, dry. Current % PO Other Minimum of two criteria No #1 Nutrition Diagnosis Inadequate oral intake Etiology Oral-endotracheal intubation. As Evidenced by Signs and Symptoms MD request for write/manage TF . Is patient on ventilator? Yes Is Patient Ambulatory and/or Out of Bed No [facility] 2047.94 Calculation [facility]ations [facility] Additional Notes Protein: 1.2-1.5 g/Kg; 101-126 g/day (from ABW + critical care). Fluids: 1 ml/Kcal, or as per MD. Nutrition Intervention Change Diet Order: Continue NPO as per MD. Nutrition Support: Start Promote @ 77 ml/hr. Flush: 80 ml water Q 4 hr. Kcal 1,845 Protein (gm) 115 Carbohydrates (gm) 240 Fat (gm) 48 Fluid (mL) 1,548 Fiber (gm) 0 % RDI: 90% Kcal; 100% AA. Goal #1 Provide at least 75% of energy /protein needs through Enteral Feeding during LOS. Goal #2 Maintain body weight within +/ -3% of admission body weight during LOS. Goal #3 Reach and maintain acceptable chemistry lab values during LOS. Follow-Up By: 02/15/21 Additional Comments Continue monitoring TF tolerance, Hydration, and BM.
--- NOTE | 2021-02-14 12:51 | Gastroenterology Progress Note ---
Assessment and Plan 1. Abnormal liver enzymes - likely with alcoholic hepatitis superimposed on underlying alcoholic cirrhosis. on going alcohol abuse and not transplant candidate. trend liver enzymes, but otherwise supportive care from gi stand point. check ammonia level, and adjust lactulose dosing/frequency as needed for goal of 2-3 bm's daily and based on ammonia levels (given pt's mentation has not improved since weaning off sedation) Subjective Date of service: 02/14/21 Principal diagnosis: respiratory failure, liver failure Interval history: pt remains intubated, weaning off sedation, not awakening per pt's nurse. pts mom at bedside. states pt was at [place] history for over 1 month due (in part due to cirrhosis/liver failure related complications it appears) - started drinking alcohol again after discharge home Objective - Exam Narrative Exam: gen: intubated/non-arousable Eyes: + icterus CV: RRR Lungs: on vent abd: soft, nd - Constitutional Vitals: Temp Pulse Resp BP Pulse Ox 100.8 F H 121 H 20 98/56 95 02/14/21 08:00 02/14/21 09:00 02/14/21 09:00 02/14/21 09:00 02/14/21 09:00 - Labs CBC & Chem 7: 02/14/21 04:00 02/14/21 04:00 Labs: Laboratory Results - last 24 hr 02/13/21 02/13/21 02/13/21 11:20 11:20 11:20 WBC 8.7 RBC 3.51 L Hgb 11.7 L Hct 38.3 MCV 109 H MCH 33 H MCHC 31 L RDW 18.0 H Plt Count 82 L Add Manual Diff Complete Total Counted 100 Seg Neuts % (Manual) 42.0 Band Neutrophils % Lymphocytes % (Manual) 46.0 H Monocytes % (Manual) 12.0 H Metamyelocytes % Nucleated RBC % Not Reportable Seg Neutrophils # Man 3.7 Band Neutrophils # 0.0 Lymphocytes # (Manual) 4.0 Abs React Lymphs (Man) 0.0 Monocytes # (Manual) 1.0 H Eosinophils # (Manual) 0.0 Basophils # (Manual) 0.0 Metamyelocytes # 0.0 Myelocytes # 0.0 Promyelocytes # 0.0 Blast Cells # 0.0 WBC Morphology Not Reportable Hypersegmented Neuts Not Reportable Hyposegmented Neuts Not Reportable Hypogranular Neuts Not Reportable Smudge Cells Not Reportable Toxic Granulation Not Reportable Toxic Vacuolation Not Reportable Dohle Bodies Not Reportable Pelger-Huet Anomaly Not Reportable Airam Rods Not Reportable Platelet Estimate Consistent w auto Clumped Platelets Not Reportable Plt Clumps, EDTA Not Reportable Large Platelets Few Giant Platelets Not Reportable Platelet Satelliting Not Reportable Plt Morphology Comment Not Reportable RBC Morphology Normal Dimorphic RBCs Not Reportable Polychromasia Not Reportable Hypochromasia Not Reportable Poikilocytosis Not Reportable Anisocytosis Not Reportable Microcytosis Not Reportable Macrocytosis Not Reportable Spherocytes Not Reportable Pappenheimer Bodies Not Reportable Sickle Cells Not Reportable Target Cells 1+ Tear Drop Cells Not Reportable Ovalocytes Not Reportable Helmet Cells Not Reportable [place] Bodies Not Reportable [place] Rings Not Reportable Ilia Cells Not Reportable Bite Cells Not Reportable Crenated Cell Not Reportable Elliptocytes Not Reportable Acanthocytes (Spur) Not Reportable Rouleaux Not Reportable Hemoglobin C Crystals Not Reportable Schistocytes Not Reportable Malaria parasites Not Reportable Oscar Bodies Not Reportable Hem Pathologist Commnt No ABG pH ABG pCO2 ABG pO2 ABG HCO3 ABG O2 Saturation ABG O2 Content ABG Base Excess ABG Hemoglobin ABG Carboxyhemoglobin ABG Methemoglobin Oxyhemoglobin FiO2 Sodium 139 Potassium 4.3 D Chloride 94.7 L Carbon Dioxide 12 L Anion Gap 37 BUN 21 H Creatinine 2.1 H D Estimated GFR 34 BUN/Creatinine Ratio 10 Glucose 145 H POC Glucose Lactic Acid 11.70 H* Calcium 8.6 Phosphorus Magnesium Total Bilirubin 19.70 H AST 544 H ALT 107 H Alkaline Phosphatase 372 H Lactate Dehydrogenase C-Reactive Protein Total Protein 5.7 L Albumin 3.0 L Albumin/Globulin Ratio 1.1 Fluid Type Fluid Color Fluid Appearance Fluid WBC Fluid RBC Fluid Seg Neutrophils Fluid Lymphocytes Fluid Reactive Lymphs Fluid Monocytes Fluid Eosinophils Fluid Basophils Coronavirus (PCR) 02/13/21 02/13/21 02/13/21 11:20 11:20 12:15 WBC RBC Hgb Hct MCV MCH MCHC RDW Plt Count Add Manual Diff Total Counted Seg Neuts % (Manual) Band Neutrophils % Lymphocytes % (Manual) Monocytes % (Manual) Metamyelocytes % Nucleated RBC % Seg Neutrophils # Man Band Neutrophils # Lymphocytes # (Manual) Abs React Lymphs (Man) Monocytes # (Manual) Eosinophils # (Manual) Basophils # (Manual) Metamyelocytes # Myelocytes # Promyelocytes # Blast Cells # WBC Morphology Hypersegmented Neuts Hyposegmented Neuts Hypogranular Neuts Smudge Cells Toxic Granulation Toxic Vacuolation Dohle Bodies Pelger-Huet Anomaly Airam Rods Platelet Estimate Clumped Platelets Plt Clumps, EDTA Large Platelets Giant Platelets Platelet Satelliting Plt Morphology Comment RBC Morphology Dimorphic RBCs Polychromasia Hypochromasia Poikilocytosis Anisocytosis Microcytosis Macrocytosis Spherocytes Pappenheimer Bodies Sickle Cells Target Cells Tear Drop Cells Ovalocytes Helmet Cells [place] Bodies [place] Rings [place] Cells Bite Cells Crenated Cell Elliptocytes Acanthocytes (Spur) Rouleaux Hemoglobin C Crystals Schistocytes Malaria parasites Oscar Bodies Hem Pathologist Commnt ABG pH ABG pCO2 ABG pO2 ABG HCO3 ABG O2 Saturation ABG O2 Content ABG Base Excess ABG Hemoglobin ABG Carboxyhemoglobin ABG Methemoglobin Oxyhemoglobin FiO2 Sodium Potassium Chloride Carbon Dioxide Anion Gap BUN Creatinine Estimated GFR BUN/Creatinine Ratio Glucose POC Glucose Lactic Acid Calcium Phosphorus 2.80 Magnesium Total Bilirubin AST ALT Alkaline Phosphatase Lactate Dehydrogenase 1244 H C-Reactive Protein 5.40 H Total Protein Albumin Albumin/Globulin Ratio Fluid Type Thoracentesis Fluid Color Nae Fluid Appearance Hazy Fluid WBC 63 Fluid RBC 800 Fluid Seg Neutrophils 11.3 Fluid Lymphocytes 12.5 Fluid Reactive Lymphs 2.5 Fluid Monocytes 72.5 Fluid Eosinophils 0 Fluid Basophils 1.3 Coronavirus (PCR) 02/13/21 02/13/21 02/14/21 17:19 Unknown 00:20 WBC RBC Hgb Hct MCV MCH MCHC RDW Plt Count Add Manual Diff Total Counted Seg Neuts % (Manual) Band Neutrophils % Lymphocytes % (Manual) Monocytes % (Manual) Metamyelocytes % Nucleated RBC % Seg Neutrophils # Man Band Neutrophils # Lymphocytes # (Manual) Abs React Lymphs (Man) Monocytes # (Manual) Eosinophils # (Manual) Basophils # (Manual) Metamyelocytes # Myelocytes # Promyelocytes # Blast Cells # WBC Morphology Hypersegmented Neuts Hyposegmented Neuts Hypogranular Neuts Smudge Cells Toxic Granulation Toxic Vacuolation Dohle Bodies Pelger-Huet Anomaly Airam Rods Platelet Estimate Clumped Platelets Plt Clumps, EDTA Large Platelets Giant Platelets Platelet Satelliting Plt Morphology Comment RBC Morphology Dimorphic RBCs Polychromasia Hypochromasia Poikilocytosis Anisocytosis Microcytosis Macrocytosis Spherocytes Pappenheimer Bodies Sickle Cells Target Cells Tear Drop Cells Ovalocytes Helmet Cells [place] Bodies [place] Rings [place] Cells Bite Cells Crenated Cell Elliptocytes Acanthocytes (Spur) Rouleaux Hemoglobin C Crystals Schistocytes Malaria parasites Oscar Bodies Hem Pathologist Commnt ABG pH ABG pCO2 ABG pO2 ABG HCO3 ABG O2 Saturation ABG O2 Content ABG Base Excess ABG Hemoglobin ABG Carboxyhemoglobin ABG Methemoglobin Oxyhemoglobin FiO2 Sodium Potassium Chloride Carbon Dioxide Anion Gap BUN Creatinine Estimated GFR BUN/Creatinine Ratio Glucose POC Glucose 131 H 177 H Lactic Acid Calcium Phosphorus Magnesium Total Bilirubin AST ALT Alkaline Phosphatase Lactate Dehydrogenase C-Reactive Protein Total Protein Albumin Albumin/Globulin Ratio Fluid Type Fluid Color Fluid Appearance Fluid WBC Fluid RBC Fluid Seg Neutrophils Fluid Lymphocytes Fluid Reactive Lymphs Fluid Monocytes Fluid Eosinophils Fluid Basophils Coronavirus (PCR) Negative 02/14/21 02/14/21 02/14/21 04:00 04:00 04:00 WBC 8.3 RBC 3.36 L Hgb 11.6 L Hct 37.0 MCV 110 H MCH 35 H MCHC 31 L RDW 17.2 H Plt Count 61 L Add Manual Diff Complete Total Counted 100 Seg Neuts % (Manual) 88.0 H Band Neutrophils % 2.0 Lymphocytes % (Manual) 3.0 L Monocytes % (Manual) 5.0 Metamyelocytes % 2.0 Nucleated RBC % 2.0 H Seg Neutrophils # Man 0.0 L Band Neutrophils # 0.0 Lymphocytes # (Manual) 0.0 L Abs React Lymphs (Man) 0.0 Monocytes # (Manual) 0.0 Eosinophils # (Manual) 0.0 Basophils # (Manual) 0.0 Metamyelocytes # 0.0 Myelocytes # 0.0 Promyelocytes # 0.0 Blast Cells # 0.0 WBC Morphology Not Reportable Hypersegmented Neuts Not Reportable Hyposegmented Neuts Not Reportable Hypogranular Neuts Not Reportable Smudge Cells Not Reportable Toxic Granulation Not Reportable Toxic Vacuolation Not Reportable Dohle Bodies Not Reportable Pelger-Huet Anomaly Not Reportable Airam Rods Not Reportable Platelet Estimate Consistent w auto Clumped Platelets Not Reportable Plt Clumps, EDTA Not Reportable Large Platelets Not Reportable Giant Platelets Not Reportable Platelet Satelliting Not Reportable Plt Morphology Comment Not Reportable RBC Morphology Not Reportable Dimorphic RBCs Not Reportable Polychromasia Not Reportable Hypochromasia Not Reportable Poikilocytosis Not Reportable Anisocytosis 1+ Microcytosis Not Reportable Macrocytosis 1+ Spherocytes Not Reportable Pappenheimer Bodies Not Reportable Sickle Cells Not Reportable Target Cells Not Reportable Tear Drop Cells Not Reportable Ovalocytes Not Reportable Helmet Cells Not Reportable [place] Bodies Not Reportable [place] Rings Not Reportable Ilia Cells Not Reportable Bite Cells Not Reportable Crenated Cell Not Reportable Elliptocytes Not Reportable Acanthocytes (Spur) Not Reportable Rouleaux Not Reportable Hemoglobin C Crystals Not Reportable Schistocytes Not Reportable Malaria parasites Not Reportable Oscar Bodies Not Reportable Hem Pathologist Commnt No ABG pH ABG pCO2 ABG pO2 ABG HCO3 ABG O2 Saturation ABG O2 Content ABG Base Excess ABG Hemoglobin ABG Carboxyhemoglobin ABG Methemoglobin Oxyhemoglobin FiO2 Sodium 139 Potassium 3.9 Chloride 96.1 L Carbon Dioxide 19 L D Anion Gap 28 BUN 32 H Creatinine 3.7 H D Estimated GFR 18 BUN/Creatinine Ratio 9 Glucose 157 H POC Glucose Lactic Acid 4.20 H* Calcium 8.0 L Phosphorus 1.00 L D Magnesium 2.70 H Total Bilirubin AST ALT Alkaline Phosphatase Lactate Dehydrogenase C-Reactive Protein Total Protein Albumin Albumin/Globulin Ratio Fluid Type Fluid Color Fluid Appearance Fluid WBC Fluid RBC Fluid Seg Neutrophils Fluid Lymphocytes Fluid Reactive Lymphs Fluid Monocytes Fluid Eosinophils Fluid Basophils Coronavirus (PCR) 02/14/21 02/14/21 02/14/21 05:54 09:03 12:01 WBC RBC Hgb Hct MCV MCH MCHC RDW Plt Count Add Manual Diff Total Counted Seg Neuts % (Manual) Band Neutrophils % Lymphocytes % (Manual) Monocytes % (Manual) Metamyelocytes % Nucleated RBC % Seg Neutrophils # Man Band Neutrophils # Lymphocytes # (Manual) Abs React Lymphs (Man) Monocytes # (Manual) Eosinophils # (Manual) Basophils # (Manual) Metamyelocytes # Myelocytes # Promyelocytes # Blast Cells # WBC Morphology Hypersegmented Neuts Hyposegmented Neuts Hypogranular Neuts Smudge Cells Toxic Granulation Toxic Vacuolation Dohle Bodies Pelger-Huet Anomaly Airam Rods Platelet Estimate Clumped Platelets Plt Clumps, EDTA Large Platelets Giant Platelets Platelet Satelliting Plt Morphology Comment RBC Morphology Dimorphic RBCs Polychromasia Hypochromasia Poikilocytosis Anisocytosis Microcytosis Macrocytosis Spherocytes Pappenheimer Bodies Sickle Cells Target Cells Tear Drop Cells Ovalocytes Helmet Cells [place] Bodies [place] Rings Ilia Cells Bite Cells Crenated Cell Elliptocytes Acanthocytes (Spur) Rouleaux Hemoglobin C Crystals Schistocytes Malaria parasites Oscar Bodies Hem Pathologist Commnt ABG pH 7.396 ABG pCO2 39.0 ABG pO2 81.2 ABG HCO3 23.4 ABG O2 Saturation 96.4 ABG O2 Content 15.4 ABG Base Excess -1.2 ABG Hemoglobin 11.5 L ABG Carboxyhemoglobin 1.3 ABG Methemoglobin 0.6 Oxyhemoglobin 94.6 L FiO2 100 Sodium Potassium Chloride Carbon Dioxide Anion Gap BUN Creatinine Estimated GFR BUN/Creatinine Ratio Glucose POC Glucose 151 H 166 H Lactic Acid Calcium Phosphorus Magnesium Total Bilirubin AST ALT Alkaline Phosphatase Lactate Dehydrogenase C-Reactive Protein Total Protein Albumin Albumin/Globulin Ratio Fluid Type Fluid Color Fluid Appearance Fluid WBC Fluid RBC Fluid Seg Neutrophils Fluid Lymphocytes Fluid Reactive Lymphs Fluid Monocytes Fluid Eosinophils Fluid Basophils Coronavirus (PCR)
--- NOTE | 2021-02-14 12:58 | Progress Note ---
Assessment and Plan Acute hypoxemic respiratory failure Cardiac arrest with ROSC Large right pleural effusion Decompensated liver failure Alcohol abuse Sepsis Liver cirrhosis Thrombocytopenia Oropharyngeal dysphagia Hyperbilirubinemia Elevated serum transaminases Hyperammonemia - continue gentle volume rehydration (lactate trending down) - will place right groin Trialysis catheter re: coagulopathy - wean vasopressors for target MAP > 65 mmHg - get CT Head re: AMS in am - repeat NH3 level in am - will ask IR to place right pig-tail catheter to drain effusion - continue to wean supplemental oxygen for target O2 sat's > 90% acutely - VAP bundle addressed - continue lung protective strategies - continue bronchodilators with pulmonary hygiene per RT - wean per pulmonary driven protocols otherwise - avoid nephrotoxins, renally dose all medications - HD/UF per nephrology prescription for toxin and volume clearance - daily SAT and SBT assessment as tolerated - accuchecks with glycemic control per SSI (While critically ill target blood glucose of 140-180 mg/dL; avoid hypoglycemia) - sedation prn for target RASS 0 to -1 - continue to avoid benzodiazepine's, reduce the possibility of delirium - continue empiric ABS's (await procalcitonin level) - prn analgesia per CPOT score - Maintenance of sleep-wake cycle, avoid delirium - enteral nutritional support at goal rate as tolerated - G.I. & VTE prophylaxis - PT/OT/ROM exercises - continue mobility protocols for pressure ulcer prophylaxis - Monitor hemodynamics closely - continue other care per attending / other consultants - discharge planning ongoing concurrently COVID SPECIFIC INTERVENTIONS - COVID-19 PCR negative .... Re-evaluate in am & prn CONDITION: CRITICAL PROGNOSIS: GUARDED CODE STATUS: FULL CODE The high probability of a clinically significant, sudden or life-threatening deterioration of the [respiratory, cardiovascular, GI & neurologic] system(s) required my full and direct attention, intervention and personal management. The aggregate critical care time was [38] minutes without overlap. Time includes spent on; [x] Data Review and interpretation [x] Patient assessment and monitoring of vital signs [x] Documentation [x] Medication orders and management Subjective Date of service: 02/14/21 Principal diagnosis: AHRF; Cardiac arrest; R. pleural effusion; Liver failure; T hrombocytopenia Interval history: Patient is seen today for: Acute hypoxemic respiratory failure; Cardiac arrest with ROSC; Large right pleural effusion; Decompensated liver failure; Liver cirrhosis; Thrombocytopenia; Sepsis Seen and examined at bedside; 24hour events reviewed; nursing and respiratory care staff consulted; no adverse overnight events reported to me; resting in bed; on minimal sedation with Fentanyl; remains significantly hypoxemic; his is visiting; oliguric and will need HD/UF; + persistent thrombocytopenia but no spontaneous bleeding Objective Vital Signs - 12hr 02/14/21 02/14/21 02/14/21 01:00 01:15 01:30 Temperature Pulse Rate 120 H 121 H 121 H Pulse Rate [ From Monitor] Respiratory 21 24 23 Rate Blood Pressure 94/57 98/59 99/58 O2 Sat by Pulse 94 93 93 Oximetry 02/14/21 02/14/21 02/14/21 01:45 02:00 02:15 Temperature Pulse Rate 122 H 121 H 120 H Pulse Rate [ From Monitor] Respiratory 24 20 19 Rate Blood Pressure 103/56 99/60 102/58 O2 Sat by Pulse 93 94 94 Oximetry 02/14/21 02/14/21 02/14/21 02:30 02:45 03:00 Temperature Pulse Rate 120 H 121 H 121 H Pulse Rate [ From Monitor] Respiratory 25 H 22 22 Rate Blood Pressure 99/56 96/55 107/56 O2 Sat by Pulse 93 95 94 Oximetry 02/14/21 02/14/21 02/14/21 03:15 03:25 03:30 Temperature Pulse Rate 120 H 119 H 120 H Pulse Rate [ From Monitor] Respiratory 22 29 H Rate Blood Pressure 100/59 100/59 93/55 O2 Sat by Pulse 94 96 Oximetry 02/14/21 02/14/21 02/14/21 03:45 04:00 04:15 Temperature Pulse Rate 119 H 121 H 120 H Pulse Rate [ 118 H From Monitor] Respiratory 19 20 22 Rate Blood Pressure 98/58 95/56 96/55 O2 Sat by Pulse 95 93 Oximetry 02/14/21 02/14/21 02/14/21 04:30 04:45 05:00 Temperature Pulse Rate 119 H 119 H 117 H Pulse Rate [ From Monitor] Respiratory 26 H 23 25 H Rate Blood Pressure 92/57 88/59 90/56 O2 Sat by Pulse 94 93 Oximetry 02/14/21 02/14/21 02/14/21 05:15 05:30 05:45 Temperature Pulse Rate 121 H 120 H 120 H Pulse Rate [ From Monitor] Respiratory 20 22 22 Rate Blood Pressure 87/57 95/57 97/57 O2 Sat by Pulse 93 94 93 Oximetry 02/14/21 02/14/21 02/14/21 06:00 06:15 06:30 Temperature Pulse Rate 119 H 120 H 121 H Pulse Rate [ From Monitor] Respiratory 26 H 25 H 26 H Rate Blood Pressure 99/56 96/57 100/56 O2 Sat by Pulse 95 95 94 Oximetry 02/14/21 02/14/21 02/14/21 06:45 07:00 07:15 Temperature Pulse Rate 119 H 121 H 121 H Pulse Rate [ From Monitor] Respiratory 20 20 24 Rate Blood Pressure 92/58 94/55 96/56 O2 Sat by Pulse 93 Oximetry 02/14/21 02/14/21 02/14/21 07:30 07:45 08:00 Temperature 100.8 F H Pulse Rate 120 H 117 H 119 H Pulse Rate [ From Monitor] Respiratory 22 29 H 22 Rate Blood Pressure 94/59 99/52 90/53 O2 Sat by Pulse 94 92 Oximetry 02/14/21 02/14/21 02/14/21 08:15 08:30 08:45 Temperature Pulse Rate 120 H 120 H 120 H Pulse Rate [ From Monitor] Respiratory 21 23 18 Rate Blood Pressure 97/57 97/57 100/55 O2 Sat by Pulse 97 95 94 Oximetry 02/14/21 02/14/21 08:49 09:00 Temperature Pulse Rate 121 H 121 H Pulse Rate [ From Monitor] Respiratory 20 Rate Blood Pressure 100/55 98/56 O2 Sat by Pulse 96 95 Oximetry Constitutional: no acute distress, other (middle aged male with mildly increased respiratory effort at rest) Eyes: icteric ENT: oropharynx moist, other (ETT 24 cm CHUY) Neck: supple, no lymphadenopathy, no JVD Effort: mildly labored Ascultation: Bilateral: diminished breath sounds, rhonchi (scant) Percussion: Bilateral: not dull Cardiovascular: regular rate and rhythm Gastrointestinal: normoactive bowel sounds, soft, non-tender, other (distended) Integumentary: other (icterus) Extremities: no cyanosis, no edema, pulses normal, other (Right groin CVL) Neurologic: non-focal exam (grossly), pupils equal and round, unable to assess Psychiatric: other (unable to assess re: AMS) CBC and BMP: 02/14/21 04:00 02/14/21 04:00 ABG, PT/INR, D-dimer: ABG ABG pH 7.396 pH Units (7.350-7.450) 02/14/21 09:03 ABG pCO2 39.0 mm Hg 02/14/21 09:03 ABG pO2 81.2 mm Hg (80.0-90.0) 02/14/21 09:03 ABG O2 Saturation 96.4 % (95.0-99.0) 02/14/21 09:03 PT/INR, D-dimer PT 15.5 Sec. (12.2-14.9) H 02/12/21 22:17 INR 1.11 (0.87-1.13) 02/12/21 22:17 Abnormal lab findings: Abnormal Labs 02/12/21 02/12/21 02/12/21 22:17 22:17 22:17 RBC Hgb MCV 105 H MCH 33 H MCHC 31 L RDW 17.6 H Plt Count 73 L Seg Neuts % (Manual) 96.0 H Lymphocytes % (Manual) 3.0 L Monocytes % (Manual) Nucleated RBC % Seg Neutrophils # Man 8.2 H Lymphocytes # (Manual) 0.3 L Monocytes # (Manual) PT 15.5 H APTT 39.3 H ABG pH ABG pO2 ABG HCO3 ABG Base Excess ABG Hemoglobin Oxyhemoglobin Sodium 136 L Potassium 3.4 L Chloride 91.9 L Carbon Dioxide 18 L BUN Creatinine Glucose 164 H POC Glucose Lactic Acid Calcium Phosphorus Magnesium Total Bilirubin 18.90 H AST 396 H ALT 98 H Alkaline Phosphatase 454 H Ammonia Lactate Dehydrogenase C-Reactive Protein Total Protein Albumin 3.4 L Plasma/Serum Alcohol 02/12/21 02/12/21 02/13/21 22:17 Unknown 04:40 RBC Hgb MCV MCH MCHC RDW Plt Count Seg Neuts % (Manual) Lymphocytes % (Manual) Monocytes % (Manual) Nucleated RBC % Seg Neutrophils # Man Lymphocytes # (Manual) Monocytes # (Manual) PT APTT ABG pH 7.310 L ABG pO2 ABG HCO3 15.8 L ABG Base Excess -9.3 L ABG Hemoglobin 13.2 L Oxyhemoglobin 92.7 L Sodium Potassium Chloride Carbon Dioxide BUN Creatinine Glucose POC Glucose Lactic Acid Calcium Phosphorus Magnesium 1.50 L Total Bilirubin AST ALT Alkaline Phosphatase Ammonia Lactate Dehydrogenase C-Reactive Protein Total Protein Albumin Plasma/Serum Alcohol 0.32 H 02/13/21 02/13/21 02/13/21 05:00 08:17 11:20 RBC 3.51 L Hgb 11.7 L MCV 109 H MCH 33 H MCHC 31 L RDW 18.0 H Plt Count 82 L Seg Neuts % (Manual) Lymphocytes % (Manual) 46.0 H Monocytes % (Manual) 12.0 H Nucleated RBC % Seg Neutrophils # Man Lymphocytes # (Manual) Monocytes # (Manual) 1.0 H PT APTT ABG pH 7.229 L ABG pO2 101.6 H ABG HCO3 12.9 L ABG Base Excess -13.4 L ABG Hemoglobin 13.2 L Oxyhemoglobin 94.8 L Sodium Potassium Chloride Carbon Dioxide BUN Creatinine Glucose POC Glucose Lactic Acid Calcium Phosphorus Magnesium Total Bilirubin AST ALT Alkaline Phosphatase Ammonia 68.0 H Lactate Dehydrogenase C-Reactive Protein Total Protein Albumin Plasma/Serum Alcohol 02/13/21 02/13/21 02/13/21 11:20 11:20 11:20 RBC Hgb MCV MCH MCHC RDW Plt Count Seg Neuts % (Manual) Lymphocytes % (Manual) Monocytes % (Manual) Nucleated RBC % Seg Neutrophils # Man Lymphocytes # (Manual) Monocytes # (Manual) PT APTT ABG pH ABG pO2 ABG HCO3 ABG Base Excess ABG Hemoglobin Oxyhemoglobin Sodium Potassium Chloride 94.7 L Carbon Dioxide 12 L BUN 21 H Creatinine 2.1 H D Glucose 145 H POC Glucose Lactic Acid 11.70 H* Calcium Phosphorus Magnesium Total Bilirubin 19.70 H AST 544 H ALT 107 H Alkaline Phosphatase 372 H Ammonia Lactate Dehydrogenase 1244 H C-Reactive Protein Total Protein 5.7 L Albumin 3.0 L Plasma/Serum Alcohol 02/13/21 02/13/21 02/14/21 11:20 17:19 00:20 RBC Hgb MCV MCH MCHC RDW Plt Count Seg Neuts % (Manual) Lymphocytes % (Manual) Monocytes % (Manual) Nucleated RBC % Seg Neutrophils # Man Lymphocytes # (Manual) Monocytes # (Manual) PT APTT ABG pH ABG pO2 ABG HCO3 ABG Base Excess ABG Hemoglobin Oxyhemoglobin Sodium Potassium Chloride Carbon Dioxide BUN Creatinine Glucose POC Glucose 131 H 177 H Lactic Acid Calcium Phosphorus Magnesium Total Bilirubin AST ALT Alkaline Phosphatase Ammonia Lactate Dehydrogenase C-Reactive Protein 5.40 H Total Protein Albumin Plasma/Serum Alcohol 02/14/21 02/14/21 02/14/21 04:00 04:00 04:00 RBC 3.36 L Hgb 11.6 L MCV 110 H MCH 35 H MCHC 31 L RDW 17.2 H Plt Count 61 L Seg Neuts % (Manual) 88.0 H Lymphocytes % (Manual) 3.0 L Monocytes % (Manual) Nucleated RBC % 2.0 H Seg Neutrophils # Man 0.0 L Lymphocytes # (Manual) 0.0 L Monocytes # (Manual) PT APTT ABG pH ABG pO2 ABG HCO3 ABG Base Excess ABG Hemoglobin Oxyhemoglobin Sodium Potassium Chloride 96.1 L Carbon Dioxide 19 L D BUN 32 H Creatinine 3.7 H D Glucose 157 H POC Glucose Lactic Acid 4.20 H* Calcium 8.0 L Phosphorus 1.00 L D Magnesium 2.70 H Total Bilirubin AST ALT Alkaline Phosphatase Ammonia Lactate Dehydrogenase C-Reactive Protein Total Protein Albumin Plasma/Serum Alcohol 02/14/21 02/14/21 02/14/21 05:54 09:03 12:01 RBC Hgb MCV MCH MCHC RDW Plt Count Seg Neuts % (Manual) Lymphocytes % (Manual) Monocytes % (Manual) Nucleated RBC % Seg Neutrophils # Man Lymphocytes # (Manual) Monocytes # (Manual) PT APTT ABG pH ABG pO2 ABG HCO3 ABG Base Excess ABG Hemoglobin 11.5 L Oxyhemoglobin 94.6 L Sodium Potassium Chloride Carbon Dioxide BUN Creatinine Glucose POC Glucose 151 H 166 H Lactic Acid Calcium Phosphorus Magnesium Total Bilirubin AST ALT Alkaline Phosphatase Ammonia Lactate Dehydrogenase C-Reactive Protein Total Protein Albumin Plasma/Serum Alcohol Chest x-ray: image reviewed (persistent large right pleural effusion) Allied health notes reviewed: nursing
[2021-02-14] MEDS ORDERED: DEXTROSE 50% IN WATER (25GM) 50 ML SYRINGE IV PRN (15:57)
--- NOTE | 2021-02-14 16:40 | Event Note ---
Date: 02/14/21 Placed order for US thoracentesis to assist with the primary team caring for the patient. Interventional radiology does not perform thoracentesis or paracentesis. This is performed by diagnostic radiology. Please coordinate with them in the future.
--- NOTE | 2021-02-14 16:45 | Procedure Note ---
Date of procedure: 02/14/21 Pre-op diagnosis: NAVDEEP with azotemia Post-op diagnosis: same Procedure: Temporary VasCath Placement Patient was evaluated and required temporary VasCath placement for Hemodialysis. Consent obtained from patient's mother, Phyllis Davis A time-out was completed verifying correct patient, procedure, site, and positioning. Hand hygiene were performed immediately prior to the procedure and sterile technique was used throughout the procedure. The patients right groin was prepped with iodine and chlorhexidine scrub then draped in a sterile fashion. 1% Lidocaine was used to anesthetize the surrounding skin area. Then the right femoral vein was accessed using ultrasound guidance and a 30cm trialysis catheter was introduced using the Seldinger technique. The catheter threaded smoothly over the guidewire and advanced easily into the vein and brisk blood return was observed from each lumen. Each lumen were flushed and clamped, then the catheter was sutured in place and covered with a sterile dressing. Patient tolerated the procedure well, no signs of any adverse reaction noted. Vascath is ready to use. Total Time Spent with Patient (Minutes): 40 minutes Anesthesia: local Surgeon: EL MANSFIELD (Supervised by Dr. merrill) Estimated blood loss: minimal Condition: critical Disposition: ICU
[2021-02-14] MEDS: AZITHROMYCIN/NS 500 MG/250 ML 500 MG/250 ML BAG IV SCH (17:05)
[2021-02-14] MEDS: cefTRIAXone/NS 2 GM/100 ML 2 GM/100 ML BAG IV SCH (17:18)
[2021-02-14] MEDS: INSULIN LISPRO 100 UNIT/ML SUB-Q SCH (17:57)
--- NOTE | 2021-02-15 01:44 | XRay Report ---
CHEST 1 VIEW 02/15/2021 12:46 AM INDICATION / CLINICAL INFORMATION: follow up respiratory failure. COMPARISON: One view of the chest from 02/14/2021. FINDINGS: SUPPORT DEVICES: Unchanged. HEART / MEDIASTINUM: Stable. LUNGS / PLEURA: Improved aeration of the right lung with increased generalized left interstitial opac ities. No significant pleural effusion. No pneumothorax. ADDITIONAL FINDINGS: No significant additional findings. IMPRESSION: 1. Improved aeration of the right lung with increased left interstitial opacities, likely representin g atelectasis/edema. 2. No other significant interval changes. Signer Name: José Manuel Craven MD Signed: 02/15/2021 1:40 AM Workstation Name: [id number]
[2021-02-15] MEDS: INSULIN LISPRO 100 UNIT/ML SUB-Q SCH ×3 (02:14→13:23)
[2021-02-15] MEDS: SODIUM BICARBONATE 150 MEQ in DEXTROSE 5% IN WATER 1,000 ML IV SCH (02:53)
[2021-02-15] MEDS: ALBUMIN HUMAN 25% (25 GM/100 ML) INJ IV SCH ×2 (02:55→06:08)
[2021-02-15 05:24] LABS: Hematocrit 33.9 % (35.5-45.6); Hemoglobin 10.6 gm/dl (11.8-15.2); Mean Corpuscular HGB Conc 31 % (32-34); Mean Corpuscular Volume 109 fl (84-94); Red Blood Count 3.12 M/mm3 (3.65-5.03); Red Cell Distribution Width 17.7 % (13.2-15.2)
[2021-02-15 05:27] LABS: Platelet Count 55 K/mm3 (140-440)
[2021-02-15 05:38] LABS: Calcium 7.6 mg/dL (8.4-10.2)
[2021-02-15] MEDS ORDERED: SODIUM CHLORIDE 0.9% 100 ML IV PRN (06:00)
[2021-02-15] MEDS ORDERED: POTASSIUM CHLORIDE 20 MEQ PACKET FEEDTUBE SCH (09:00)
[2021-02-15] MEDS: LACTULOSE 20 GM/30 ML ORAL LIQD PO SCH ×2 (09:47→14:14)
[2021-02-15] MEDS: FAMOTIDINE 10 MG TAB FEEDTUBE SCH (09:47)
[2021-02-15] MEDS: NORepinephrine/NS 8 MG-250 ML 8 MG/250 ML INFUS..BTL IV SCH (09:47)
[2021-02-15] MEDS: SENNOSIDES/DOCUSATE SODIUM 8.6/50 MG TAB FEEDTUBE SCH (09:48)
[2021-02-15] MEDS: fentaNYL DRIP Premix 2,000 MCG/100 ML BAG IV SCH (10:32)
--- NOTE | 2021-02-15 10:44 | Event Note ---
Date: 02/15/21 Patient examined. Chest x-ray is reviewed. The patient does have improved aeration of his right lung. He does have some persistent small right pleural effusion. The patient has a complex medical history including liver failure with worsening thrombocytopenia. Platelets today are 55. The patient is also intubated with increasing pressor requirements. At this time, the patient is not stable enough to bring down for chest tube placement. If there is concern for residual fluid, bedside thoracentesis could be performed in the ICU [facility]. Once the patient is stable to bring down, if there is persistent fluid he may benefit from a chest tube placement at that time.
--- NOTE | 2021-02-15 11:17 | Progress Note ---
Assessment and Plan Acute hypoxemic respiratory failure Cardiac arrest with ROSC Large right pleural effusion Decompensated liver failure Alcohol abuse Sepsis Liver cirrhosis Thrombocytopenia Oropharyngeal dysphagia Hyperbilirubinemia Elevated serum transaminases Hyperammonemia - increased peep to 10 - HD/UF per nephrology for toxin and volume clearance - continue gentle volume rehydration with alkalanized fluids (lactate trending down) - wean vasopressors for target MAP > 65 mmHg - follow CT Head re: AMS in am - repeat NH3 level remains elevated; continue lactulose - continue to wean supplemental oxygen for target O2 sat's > 90% acutely - VAP bundle addressed - continue lung protective strategies - continue bronchodilators with pulmonary hygiene per RT - wean per pulmonary driven protocols otherwise - avoid nephrotoxins, renally dose all medications - HD/UF per nephrology prescription for toxin and volume clearance - daily SAT and SBT assessment as tolerated - accuchecks with glycemic control per SSI (While critically ill target blood glucose of 140-180 mg/dL; avoid hypoglycemia) - sedation prn for target RASS 0 to -1 - continue to avoid benzodiazepine's, reduce the possibility of delirium - continue empiric AB's (await procalcitonin level) - prn analgesia per CPOT score - Maintenance of sleep-wake cycle, avoid delirium - enteral nutritional support at goal rate as tolerated - G.I. & VTE prophylaxis - PT/OT/ROM exercises - continue mobility protocols for pressure ulcer prophylaxis - Monitor hemodynamics closely - continue other care per attending / other consultants - discharge planning ongoing concurrently COVID SPECIFIC INTERVENTIONS - COVID-19 PCR negative .... Re-evaluate in am & prn CONDITION: CRITICAL PROGNOSIS: GUARDED CODE STATUS: FULL CODE The high probability of a clinically significant, sudden or life-threatening deterioration of the [respiratory, cardiovascular, GI & neurologic] system(s) required my full and direct attention, intervention and personal management. The aggregate critical care time was [33] minutes without overlap. Time includes spent on; [x] Data Review and interpretation [x] Patient assessment and monitoring of vital signs [x] Documentation [x] Medication orders and management Subjective Date of service: 02/15/21 Principal diagnosis: AHRF; Cardiac arrest; R. pleural effusion; Liver failure; Thrombocytopenia Interval history: Patient is seen today for: Acute hypoxemic respiratory failure; Cardiac arrest with ROSC; Large right pleural effusion; Decompensated liver failure; Liver cirrhosis; Thrombocytopenia; Sepsis Seen and examined at bedside; 24hour events reviewed; nursing and respiratory care staff consulted; no adverse overnight events reported to me; resting in bed; HD/UF ongoing; remains on MVS; AMS is persistent Objective Vital Signs - 12hr 02/14/21 02/14/21 02/14/21 23:26 23:30 23:45 Temperature Pulse Rate 108 H 105 H 113 H Pulse Rate [ From Monitor] Respiratory 17 23 Rate Blood Pressure 113/63 104/64 102/58 O2 Sat by Pulse 97 97 96 Oximetry O2 Sat by Pulse Oximetry [ Anterior Bilateral Throughout] 02/15/21 02/15/21 02/15/21 00:00 00:15 00:30 Temperature 98.2 F Pulse Rate 110 H 110 H 107 H Pulse Rate [ 110 H From Monitor] Respiratory 23 21 20 Rate Blood Pressure 103/60 107/61 107/61 O2 Sat by Pulse 96 96 Oximetry O2 Sat by Pulse Oximetry [ Anterior Bilateral Throughout] 02/15/21 02/15/21 02/15/21 00:45 01:00 01:15 Temperature Pulse Rate 105 H 107 H 108 H Pulse Rate [ From Monitor] Respiratory 20 21 23 Rate Blood Pressure 115/58 115/65 108/62 O2 Sat by Pulse 99 96 Oximetry O2 Sat by Pulse Oximetry [ Anterior Bilateral Throughout] 02/15/21 02/15/21 02/15/21 01:30 01:45 02:00 Temperature Pulse Rate 108 H 108 H 98 H Pulse Rate [ From Monitor] Respiratory 22 22 16 Rate Blood Pressure 107/59 114/63 115/65 O2 Sat by Pulse 96 Oximetry O2 Sat by Pulse Oximetry [ Anterior Bilateral Throughout] 02/15/21 02/15/21 02/15/21 02:15 02:30 02:45 Temperature Pulse Rate 105 H 105 H 105 H Pulse Rate [ From Monitor] Respiratory 20 20 22 Rate Blood Pressure 110/63 111/65 105/63 O2 Sat by Pulse 96 98 97 Oximetry O2 Sat by Pulse Oximetry [ Anterior Bilateral Throughout] 02/15/21 02/15/21 02/15/21 03:00 03:15 03:30 Temperature Pulse Rate 106 H 109 H 103 H Pulse Rate [ From Monitor] Respiratory 25 H 23 22 Rate Blood Pressure 114/66 108/63 103/67 O2 Sat by Pulse 96 Oximetry O2 Sat by Pulse Oximetry [ Anterior Bilateral Throughout] 02/15/21 02/15/2102/15/21 03:45 04:00 04:15 Temperature 98.2 F Pulse Rate 107 H 109 H 107 H Pulse Rate [ 110 H From Monitor] Respiratory 27 H 26 H 26 H Rate Blood Pressure 93/63 94/64 103/64 O2 Sat by Pulse 94 94 Oximetry O2 Sat by Pulse Oximetry [ Anterior Bilateral Throughout] 02/15/21 02/15/21 02/15/21 04:30 04:45 05:00 Temperature Pulse Rate 104 H 107 H 106 H Pulse Rate [ From Monitor] Respiratory 26 H 26 H 25 H Rate Blood Pressure 98/65 96/63 98/65 O2 Sat by Pulse Oximetry O2 Sat by Pulse Oximetry [ Anterior Bilateral Throughout] 02/15/21 02/15/21 02/15/21 05:15 05:30 05:45 Temperature Pulse Rate 105 H 105 H 118 H Pulse Rate [ From Monitor] Respiratory 26 H 24 26 H Rate Blood Pressure 111/63 117/66 118/66 O2 Sat by Pulse 94 Oximetry O2 Sat by Pulse Oximetry [ Anterior Bilateral Throughout] 02/15/21 02/15/21 02/15/21 06:00 06:15 06:30 Temperature Pulse Rate 109 H 111 H 110 H Pulse Rate [ From Monitor] Respiratory 26 H 24 26 H Rate Blood Pressure 117/62 118/67 115/63 O2 Sat by Pulse 95 95 96 Oximetry O2 Sat by Pulse Oximetry [ Anterior Bilateral Throughout] 02/15/21 02/15/21 02/15/21 06:45 07:00 07:14 Temperature 99.6 F Pulse Rate 106 H 109 H Pulse Rate [ From Monitor] Respiratory 24 27 H Rate Blood Pressure 123/72 111/63 O2 Sat by Pulse 96 Oximetry O2 Sat by Pulse Oximetry [ Anterior Bilateral Throughout] 02/15/21 02/15/21 02/15/21 07:15 07:30 07:46 Temperature Pulse Rate 108 H 107 H 117 H Pulse Rate [ From Monitor] Respiratory 24 26 H 29 H Rate Blood Pressure 108/66 103/66 136/78 O2 Sat by Pulse 95 95 96 Oximetry O2 Sat by Pulse Oximetry [ Anterior Bilateral Throughout] 02/15/21 02/15/21 02/15/21 08:00 08:15 08:19 Temperature Pulse Rate 110 H 108 H 112 H Pulse Rate [ From Monitor] Respiratory 28 H 27 H Rate Blood Pressure 110/64 116/67 116/67 O2 Sat by Pulse 95 95 94 Oximetry O2 Sat by Pulse Oximetry [ Anterior Bilateral Throughout] 02/15/21 02/15/21 02/15/21 08:30 08:45 09:00 Temperature 98.2 F Pulse Rate 115 H 111 H 111 H Pulse Rate [ From Monitor] Respiratory 26 H 28 H 31 H Rate Blood Pressure 124/66 123/70 123/70 O2 Sat by Pulse 95 95 95 Oximetry O2 Sat by Pulse 96 Oximetry [ Anterior Bilateral Throughout] 02/15/21 02/15/21 02/15/21 09:15 09:30 09:45 Temperature Pulse Rate 125 H 129 H 121 H Pulse Rate [ From Monitor] Respiratory 32 H Rate Blood Pressure 114/64 110/66 105/60 O2 Sat by Pulse 96 Oximetry O2 Sat by Pulse Oximetry [ Anterior Bilateral Throughout] 02/15/21 02/15/21 02/15/21 10:00 10:15 10:30 Temperature Pulse Rate 122 H 126 H 129 H Pulse Rate [ From Monitor] Respiratory Rate Blood Pressure 109/65 112/66 107/61 O2 Sat by Pulse Oximetry O2 Sat by Pulse Oximetry [ Anterior Bilateral Throughout] 02/15/21 02/15/21 10:45 11:00 Temperature Pulse Rate 129 H 127 H Pulse Rate [ From Monitor] Respiratory Rate Blood Pressure 104/60 104/55 O2 Sat by Pulse Oximetry O2 Sat by Pulse Oximetry [ Anterior Bilateral Throughout] Constitutional: no acute distress, other (middle aged male with mildly increased respiratory effort at rest) Eyes: icteric ENT: oropharynx moist, other (ETT 24 cm CHUY) Neck: supple, no lymphadenopathy, no JVD Effort: mildly labored Ascultation: Bilateral: diminished breath sounds, rhonchi (scant) Percussion: Bilateral: not dull Cardiovascular: regular rate and rhythm Gastrointestinal: normoactive bowel sounds, soft, non-tender, other (distended) Integumentary: other (icterus) Extremities: no cyanosis, no edema, pulses normal, other (Right groin CVL) Neurologic: non-focal exam (grossly), pupils equal and round, unable to assess Psychiatric: other (unable to assess re: AMS) CBC and BMP: 02/15/21 04:20 02/15/21 04:20 ABG, PT/INR, D-dimer: ABG ABG pH 7.396 pH Units (7.350-7.450) 02/14/21 09:03 ABG pCO2 39.0 mm Hg 02/14/21 09:03 ABG pO2 81.2 mm Hg (80.0-90.0) 02/14/21 09:03 ABG O2 Saturation 96.4 % (95.0-99.0) 02/14/21 09:03 PT/INR, D-dimer PT 15.5 Sec. (12.2-14.9) H 02/12/21 22:17 INR 1.11 (0.87-1.13) 02/12/21 22:17 Abnormal lab findings: Abnormal Labs 02/12/21 02/12/21 02/12/21 22:17 22:17 22:17 RBC Hgb Hct MCV 105 H MCH 33 H MCHC 31 L RDW 17.6 H Plt Count 73 L Seg Neuts % (Manual) 96.0 H Lymphocytes % (Manual) 3.0 L Monocytes % (Manual) Nucleated RBC % Seg Neutrophils # Man 8.2 H Lymphocytes # (Manual) 0.3 L Monocytes # (Manual) PT 15.5 H APTT 39.3 H ABG pH ABG pO2 ABG HCO3 ABG Base Excess ABG Hemoglobin Oxyhemoglobin Sodium 136 L Potassium 3.4 L Chloride 91.9 L Carbon Dioxide 18 L BUN Creatinine Glucose 164 H POC Glucose Lactic Acid Calcium Phosphorus Magnesium Total Bilirubin 18.90 H AST 396 H ALT 98 H Alkaline Phosphatase 454 H Ammonia Lactate Dehydrogenase C-Reactive Protein Total Protein Albumin 3.4 L Triglycerides Plasma/Serum Alcohol 02/12/21 02/12/21 02/13/21 22:17 Unknown 04:40 RBC Hgb Hct MCV MCH MCHC RDW Plt Count Seg Neuts % (Manual) Lymphocytes % (Manual) Monocytes % (Manual) Nucleated RBC % Seg Neutrophils # Man Lymphocytes # (Manual) Monocytes # (Manual) PT APTT ABG pH 7.310 L ABG pO2 ABG HCO3 15.8 L ABG Base Excess -9.3 L ABG Hemoglobin 13.2 L Oxyhemoglobin 92.7 L Sodium Potassium Chloride Carbon Dioxide BUN Creatinine Glucose POC Glucose Lactic Acid Calcium Phosphorus Magnesium 1.50 L Total Bilirubin AST ALT Alkaline Phosphatase Ammonia Lactate Dehydrogenase C-Reactive Protein Total Protein Albumin Triglycerides Plasma/Serum Alcohol 0.32 H 02/13/21 02/13/21 02/13/21 05:00 08:17 11:20 RBC 3.51 L Hgb 11.7 L Hct MCV 109 H MCH 33 H MCHC 31 L RDW 18.0 H Plt Count 82 L Seg Neuts % (Manual) Lymphocytes % (Manual) 46.0 H Monocytes % (Manual) 12.0 H Nucleated RBC % Seg Neutrophils # Man Lymphocytes # (Manual) Monocytes # (Manual) 1.0 H PT APTT ABG pH 7.229 L ABG pO2 101.6 H ABG HCO3 12.9 L ABG Base Excess -13.4 L ABG Hemoglobin 13.2 L Oxyhemoglobin 94.8 L Sodium Potassium Chloride Carbon Dioxide BUN Creatinine Glucose POC Glucose Lactic Acid Calcium Phosphorus Magnesium Total Bilirubin AST ALT Alkaline Phosphatase Ammonia 68.0 H Lactate Dehydrogenase C-Reactive Protein Total Protein Albumin Triglycerides Plasma/Serum Alcohol 02/13/21 02/13/21 02/13/21 11:20 11:20 11:20 RBC Hgb Hct MCV MCH MCHC RDW Plt Count Seg Neuts % (Manual) Lymphocytes % (Manual) Monocytes % (Manual) Nucleated RBC % Seg Neutrophils # Man Lymphocytes # (Manual) Monocytes # (Manual) PT APTT ABG pH ABG pO2 ABG HCO3 ABG Base Excess ABG Hemoglobin Oxyhemoglobin Sodium Potassium Chloride 94.7 L Carbon Dioxide 12 L BUN 21 H Creatinine 2.1 H D Glucose 145 H POC Glucose Lactic Acid 11.70 H* Calcium Phosphorus Magnesium Total Bilirubin 19.70 H AST 544 H ALT 107 H Alkaline Phosphatase 372 H Ammonia Lactate Dehydrogenase 1244 H C-Reactive Protein Total Protein 5.7 L Albumin 3.0 L Triglycerides Plasma/Serum Alcohol 02/13/21 02/13/21 02/14/21 11:20 17:19 00:20 RBC Hgb Hct MCV MCH MCHC RDW Plt Count Seg Neuts % (Manual) Lymphocytes % (Manual) Monocytes % (Manual) Nucleated RBC % Seg Neutrophils # Man Lymphocytes # (Manual) Monocytes # (Manual) PT APTT ABG pH ABG pO2 ABG HCO3 ABG Base Excess ABG Hemoglobin Oxyhemoglobin Sodium Potassium Chloride Carbon Dioxide BUN Creatinine Glucose POC Glucose 131 H 177 H Lactic Acid Calcium Phosphorus Magnesium Total Bilirubin AST ALT Alkaline Phosphatase Ammonia Lactate Dehydrogenase C-Reactive Protein 5.40 H Total Protein Albumin Triglycerides Plasma/Serum Alcohol 12/02/14/21 02/14/21 04:00 04:00 04:00 RBC 3.36 L Hgb 11.6 L Hct MCV 110 H MCH 35 H MCHC 31 L RDW 17.2 H Plt Count 61 L Seg Neuts % (Manual) 88.0 H Lymphocytes % (Manual) 3.0 L Monocytes % (Manual) Nucleated RBC % 2.0 H Seg Neutrophils # Man 0.0 L Lymphocytes # (Manual) 0.0 L Monocytes # (Manual) PT APTT ABG pH ABG pO2 ABG HCO3 ABG Base Excess ABG Hemoglobin Oxyhemoglobin Sodium Potassium Chloride 96.1 L Carbon Dioxide 19 L D BUN 32 H Creatinine 3.7 H D Glucose 157 H POC Glucose Lactic Acid 4.20 H* Calcium 8.0 L Phosphorus 1.00 L D Magnesium 2.70 H Total Bilirubin AST ALT Alkaline Phosphatase Ammonia Lactate Dehydrogenase C-Reactive Protein Total Protein Albumin Triglycerides Plasma/Serum Alcohol 02/14/21 02/14/21 02/14/21 05:54 09:03 12:01 RBC Hgb Hct MCV MCH MCHC RDW Plt Count Seg Neuts % (Manual) Lymphocytes % (Manual) Monocytes % (Manual) Nucleated RBC % Seg Neutrophils # Man Lymphocytes # (Manual) Monocytes # (Manual) PT APTT ABG pH ABG pO2 ABG HCO3 ABG Base Excess ABG Hemoglobin 11.5 L Oxyhemoglobin 94.6 L Sodium Potassium Chloride Carbon Dioxide BUN Creatinine Glucose POC Glucose 151 H 166 H Lactic Acid Calcium Phosphorus Magnesium Total Bilirubin AST ALT Alkaline Phosphatase Ammonia Lactate Dehydrogenase C-Reactive Protein Total Protein Albumin Triglycerides Plasma/Serum Alcohol 02/14/21 02/14/21 02/15/21 17:46 23:18 04:20 RBC Hgb Hct MCV MCH MCHC RDW Plt Count Seg Neuts % (Manual) Lymphocytes % (Manual) Monocytes % (Manual) Nucleated RBC % Seg Neutrophils # Man Lymphocytes # (Manual) Monocytes # (Manual) PT APTT ABG pH ABG pO2 ABG HCO3 ABG Base Excess ABG Hemoglobin Oxyhemoglobin Sodium Potassium Chloride Carbon Dioxide BUN Creatinine Glucose POC Glucose 153 H 196 H Lactic Acid Calcium Phosphorus Magnesium Total Bilirubin AST ALT Alkaline Phosphatase Ammonia Lactate Dehydrogenase C-Reactive Protein Total Protein Albumin Triglycerides 631 H Plasma/Serum Alcohol 02/15/21 02/15/21 02/15/21 04:20 04:20 04:20 RBC 3.12 L Hgb 10.6 L Hct 33.9 L MCV 109 H MCH 34 H MCHC 31 L RDW 17.7 H Plt Count 55 L Seg Neuts % (Manual) Lymphocytes % (Manual) Monocytes % (Manual) Nucleated RBC % Seg Neutrophils # Man Lymphocytes # (Manual) Monocytes # (Manual) PT APTT ABG pH ABG pO2 ABG HCO3 ABG Base Excess ABG Hemoglobin Oxyhemoglobin Sodium Potassium 3.1 L D Chloride 91.5 L Carbon Dioxide BUN 45 H Creatinine 5.1 H Glucose 183 H POC Glucose Lactic Acid 3.70 H* Calcium 7.6 L Phosphorus Magnesium 2.50 H Total Bilirubin AST ALT Alkaline Phosphatase Ammonia Lactate Dehydrogenase C-Reactive Protein Total Protein Albumin Triglycerides Plasma/Serum Alcohol 02/15/21 02/15/21 04:20 05:24 RBC Hgb Hct MCV MCH MCHC RDW Plt Count Seg Neuts % (Manual) Lymphocytes % (Manual) Monocytes % (Manual) Nucleated RBC % Seg Neutrophils # Man Lymphocytes # (Manual) Monocytes # (Manual) PT APTT ABG pH ABG pO2 ABG HCO3 ABG Base Excess ABG Hemoglobin Oxyhemoglobin Sodium Potassium Chloride Carbon Dioxide BUN Creatinine Glucose POC Glucose 165 H Lactic Acid Calcium Phosphorus Magnesium Total Bilirubin AST ALT Alkaline Phosphatase Ammonia 75.0 H Lactate Dehydrogenase C-Reactive Protein Total Protein Albumin Triglycerides Plasma/Serum Alcohol Chest x-ray: image reviewed Allied health notes reviewed: nursing
--- NOTE | 2021-02-15 11:27 | Progress Note ---
Assessment and Plan Assessment and plan: This a 45-year-old male with a known past medical history of ETOH abuse, alcohol induced liver cirrhosis with ascites, had multiple paracenteses in the past admitted for respiratory distress. While in the ED coded and had a cardiac arrest with ROSC. Patient is now intubated on ventilatory support transferred to ICU for further management. Hospital Course to Date: 02/13: Patient seen and examined at the bedside. Patient is intubated and sedated on low dose propofol, on levophed for hypotension. Patient pupils are round and reactive with + gag and cough. Patient is also jaundice in appearance, abdomen is distended with no bowel sounds. Patient is s/p right thoracentesis, 1600cc drained. Repeat CXR ordered. Post cardiac arrest labs with lactic acidosis 11.70, wbcs normal, with worsen kidney function, most likely reactive post the code. Bcarb gtt was initiated and: orders placed for panculture. Given patient's presentation with large right pleural effusion, will also treat patient empirical for possible CAP, orders placed for [id number]. Will continue to trend CBC, lactic, and BMP. 02/14: Patient mentation is unchanged, remains intubated and on low dose fen tanyl this am. Patient is unresponsive, pupils are round and reactive with + gag and cough. Plan for sedation vacation today. Repeat CXR post thoracentesis with slight improved, right side of lung is still white out. Patient febrile overnight, continue current IV abx, pending culture data. IR consulted for possible Chest tube placement. Kidney function worsen this am despite IV rehydration, no urine out in last 24hrs, Nephrology consulted. Phosp repleted, repeat lab in the am. 02/15: Patient mentation unchanged, remains on the vent, off sedation, and still unresponsive. Hyperammonemia this am, lactulose increased to Q6hrs. Plan for possible CT head today. CT placement by IR is on hold, patient is too unstable at this time. Low K also noted, correction during HD per Nephro. Assessment and Plan #Neuro: Acute Metabolic Encephalopathy #ETOH Abuse - Patient is intubated and on low dose fentanyl - Pupils are reactive with + gag and cough, however patient remains unresponsive - Plan for sedation vacation today - Ammonia 75, lactulose increased to Q6hrs - Last alcohol intake was about 4 hours prior - Alcohol level 0.32 - Repeat ammonia level in the am - Possible CT head if patient mentation is unchanged in the next 24hrs #S/p Cardiac Arrest with ROSC #Hypotension #Tachycardia #Septic Kelly - Patient coded in the ED, asystole on the monitor - Resuscitative measures CPR/ACLS ROSC achieved after 2 round of Epi - ST on the monitor this am - Now on levophed gtt - Maintain adequate perfusion - Continue rehydration with cont. IVF - Continue blood pressure monitor per protocol - Maintain MAP above 65 - 2D echo pending #Acute Hypoxemic Respiratory Failure #Right Pleural Effusion #CAP - 02/13 Intubated in the ED post cardiac arrest - Vent Setting:PRVC- 90%,8,16,500 - This am ABG pending - CCM consulted, appreciate recommendations - Wean vent setting tolerated per CCM - Imagings revealed large right pleural effusion - 02/13 s/p right thoracentesis, 1600cc drained - Repeat CXR with mild improvement, Right side of lung remains white out - IR consulted for possible Chest tube placement on hold for now, patient is too unstable - VAP bundle addressed - Aspiration precaution HOB above 30 - Daily SBT and SAT trials as tolerated - Daily ABG and CXR - Continue SPO2 monitoring for SPO2 goal above 92% #GI/Hepatic:Liver Cirrhosis with ascites #H/o of multiple Paracentesis #Transaminitis - Patient is jaundice in appearance, with elevated ammonia - Last paracentesis was done at [facility] about a month ago - GI on consult - Continue current IVF for hydration - Trend LFTs - Orders placed for enteral nutrition - Nutrition consulted - Continue PPI- Pepcid #: Acute Kidney Injury(NAVDEEP) most likely ATN #Hypophosphatemia #Hypokalemia- improved - Patient initial Scr. was 1.1, kidney function declined cardiac arrest - Scr. worsen despite IV hydration, 3.7 this am - Crain in place, no urine out in last 24hrs - Nephrology consulted - VAScath inserted 02/14 - HD initiated today 02/15 - Strict intake and output - Avoid nephrotoxic medications; Renally dose medications - Continue bcarb gtt for now - Monitor and replace electrolytes as needed - Trend BMP #Thrombocytopenia - Most likely related to patient's liver issues - Will hold AC at this time - Continue to monitor for now, Trend CBC - Bleeding precaution and monitor for s/s of active bleeding - SCDs to bilateral lower extremities while in bed #ID:Septic Shock #Lactic Acidosis #Right Pleural Effusion #CAP - Elevated lactic, tachycardic, and hypotensive now on pressors - WBcs normal, febrile overnight TMAX 100.4 - Blood and sputum cultures pending - COVID swab neg - Continue empiric ABx- Rocephin and Azithromycin - Continue to F/U on B.cult - Daily CBC monitor - Consider ID consult if fevers persist or/and if leukocytosis occur #Endo:Hyperglycemia - BG check and SSI Q6hrs while on TF - Avoid hypoglycemia The high probability of a clinically significant, sudden or life threatening deterioration of the [multiple] system(s) required my full and direct attention, intervention and personal management. The aggregate critical care time was [60] minutes. This time is in addition to time spent performing reported procedures but includes the following: [x] Data Review and interpretation [x] Patient assessment and monitoring of vital signs [x] Documentation [x] Medication orders and management Disposition Plan: ICU Total Time Spent with Patient (Minutes): 60 History Interval history: Patient seen and examined at the bedside. Patient remains intubated and sedated, off sedation this am. Remains on levophed and bcarb gtt. Still oliguric overnigh, only 20cc overnight. KILO overnight Hospitalist Physical - Constitutional Vitals: Temp Pulse Resp BP Pulse Ox 98.2 F 128 H 32 H 101/60 96 02/15/21 08:45 02/15/21 11:15 02/15/21 09:15 02/15/21 11:15 02/15/21 09:15 General appearance: Present: mild distress, other (Intubated, unresponsive not on any sedation) - EENT Eyes: Present: PERRL - Respiratory Respiratory effort: labored, accessory muscle use Respiratory: bilateral: rhonchi - Cardiovascular Rhythm: regular Heart Sounds: Present: S1 & S2 - Extremities Extremities: no ischemia, pulses intact, pulses symmetrical Extremity abnormal: edema - Peripheral Assessment Generalized Edema Type: Pitting Edema Degree: 2+ Capillary Refill: < 3 seconds Skin Temperature: Warm Peripheral Pulses: within normal limits - Abdominal General gastrointestinal: distended, rigid, hypoactive bowel sounds - Integumentary Integumentary: Present: warm, dry, jaundice, decreased turgor - Psychiatric Psychiatric: other (Intubated, unresponsive not on any sedation) - Neurologic Neurologic: other (Intubated, unresponsive not on any sedation) - Allied Health Allied health notes reviewed: nursing Results - Labs CBC & Chem 7: 02/15/21 04:20 02/15/21 04:20 Labs: Laboratory Last Values WBC 10.1 K/mm3 (4.5-11.0) 02/15/21 04:20 RBC 3.12 M/mm3 (3.65-5.03) L 02/15/21 04:20 Hgb 10.6 gm/dl (11.8-15.2) L 02/15/21 04:20 Hct 33.9 % (35.5-45.6) L 02/15/21 04:20 MCV 109 fl (84-94) H 02/15/21 04:20 MCH 34 pg (28-32) H 02/15/21 04:20 MCHC 31 % (32-34) L 02/15/21 04:20 RDW 17.7 % (13.2-15.2) H 02/15/21 04:20 Plt Count 55 K/mm3 (140-440) L 02/15/21 04:20 Eos % (Auto) Metal Finisher 02/12/21 22:17 Add Manual Diff Complete 02/14/21 04:00 Total Counted 100 02/14/21 04:00 Seg Neutrophils % Metal Finisher 02/12/21 22:17 Seg Neuts % (Manual) 88.0 % (40.0-70.0) H 02/14/21 04:00 Band Neutrophils % 2.0 % 02/14/21 04:00 Lymphocytes % (Manual) 3.0 % (13.4-35.0) L 02/14/21 04:00 Monocytes % (Manual) 5.0 % (0.0-7.3) 02/14/21 04:00 Metamyelocytes % 2.0 % 02/14/21 04:00 Nucleated RBC % 2.0 % (0.0-0.9) H 02/14/21 04:00 Seg Neutrophils # Man 0.0 K/mm3 (1.8-7.7) L 02/14/21 04:00 Band Neutrophils # 0.0 K/mm3 02/14/21 04:00 Lymphocytes # (Manual) 0.0 K/mm3 (1.2-5.4) L 02/14/21 04:00 Abs React Lymphs (Man) 0.0 K/mm3 02/14/21 04:00 Monocytes # (Manual) 0.0 K/mm3 (0.0-0.8) 02/14/21 04:00 Eosinophils # (Manual) 0.0 K/mm3 (0.0-0.4) 02/14/21 04:00 Basophils # (Manual) 0.0 K/mm3 (0.0-0.1) 02/14/21 04:00 Metamyelocytes # 0.0 K/mm3 02/14/21 04:00 Myelocytes # 0.0 K/mm3 02/14/21 04:00 Promyelocytes # 0.0 K/mm3 02/14/21 04:00 Blast Cells # 0.0 K/mm3 02/14/21 04:00 WBC Morphology Not Reportable 02/14/21 04:00 Hypersegmented Neuts Not Reportable 02/14/21 04:00 Hyposegmented Neuts Not Reportable 02/14/21 04:00 Hypogranular Neuts Not Reportable 02/14/21 04:00 Smudge Cells Not Reportable 02/14/21 04:00 Toxic Granulation Not Reportable 02/14/21 04:00 Toxic Vacuolation Not Reportable 02/14/21 04:00 Dohle Bodies Not Reportable 02/14/21 04:00 Pelger-Huet Anomaly Not Reportable 02/14/21 04:00 Airam Rods Not Reportable 02/14/21 04:00 Platelet Estimate Consistent w auto 02/14/21 04:00 Clumped Platelets Not Reportable 02/14/21 04:00 Plt Clumps, EDTA Not Reportable 02/14/21 04:00 Large Platelets Not Reportable 02/14/21 04:00 Giant Platelets Not Reportable 02/14/21 04:00 Platelet Satelliting Not Reportable 02/14/21 04:00 Plt Morphology Comment Not Reportable 02/14/21 04:00 RBC Morphology Not Reportable 02/14/21 04:00 Dimorphic RBCs Not Reportable 02/14/21 04:00 Polychromasia Not Reportable 02/14/21 04:00 Hypochromasia Not Reportable 02/14/21 04:00 Poikilocytosis Not Reportable 02/14/21 04:00 Anisocytosis 1+ 02/14/21 04:00 Microcytosis Not Reportable 02/14/21 04:00 Macrocytosis 1+ 02/14/21 04:00 Spherocytes Not Reportable 02/14/21 04:00 Pappenheimer Bodies Not Reportable 02/14/21 04:00 Sickle Cells Not Reportable 02/14/21 04:00 Target Cells Not Reportable 02/14/21 04:00 Tear Drop Cells Not Reportable 02/14/21 04:00 Ovalocytes Not Reportable 02/14/21 04:00 Helmet Cells Not Reportable 02/14/21 04:00 [place] Bodies Not Reportable 02/14/21 04:00 Smiley Rings Not Reportable 02/14/21 04:00 Ilia Cells Not Reportable 02/14/21 04:00 Bite Cells Not Reportable 02/14/21 04:00 Crenated Cell Not Reportable 02/14/21 04:00 Elliptocytes Not Reportable 02/14/21 04:00 Acanthocytes (Spur) Not Reportable 02/14/21 04:00 Rouleaux Not Reportable 02/14/21 04:00 Hemoglobin C Crystals Not Reportable 02/14/21 04:00 Schistocytes Not Reportable 02/14/21 04:00 Malaria parasites Not Reportable 02/14/21 04:00 Oscar Bodies Not Reportable 02/14/21 04:00 Hem Pathologist Commnt No 02/14/21 04:00 PT 15.5 Sec. (12.2-14.9) H 02/12/21 22:17 INR 1.11 (0.87-1.13) 02/12/21 22:17 APTT 39.3 Sec. (24.2-36.6) H 02/12/21 22:17 ABG pH 7.396 pH Units (7.350-7.450) 02/14/21 09:03 ABG pCO2 39.0 mm Hg 02/14/21 09:03 ABG pO2 81.2 mm Hg (80.0-90.0) 02/14/21 09:03 ABG HCO3 23.4 mmol/L (20.0-26.0) 02/14/21 09:03 ABG O2 Saturation 96.4 % (95.0-99.0) 02/14/21 09:03 ABG O2 Content 15.4 (0.0-44) 02/14/21 09:03 ABG Base Excess -1.2 mmol/L (-2.0-3.0) 02/14/21 09:03 ABG Hemoglobin 11.5 gm/dl (14.0-18.0) L 02/14/21 09:03 ABG Carboxyhemoglobin 1.3 % (0.0-5.0) 02/14/21 09:03 ABG Methemoglobin 0.6 % (0.0-1.5) 02/14/21 09:03 Oxyhemoglobin 94.6 % (95.0-99.0) L 02/14/21 09:03 FiO2 100 % 02/14/21 09:03 Sodium 139 mmol/L (137-145) 02/15/21 04:20 Potassium 3.1 mmol/L (3.6-5.0) L D 02/15/21 04:20 Chloride 91.5 mmol/L (98-107) L 02/15/21 04:20 Carbon Dioxide 25 mmol/L (22-30) 02/15/21 04:20 Anion Gap 26 mmol/L 02/15/21 04:20 BUN 45 mg/dL (9-20) H 02/15/21 04:20 Creatinine 5.1 mg/dL (0.8-1.3) H 02/15/21 04:20 Estimated GFR 12 ml/min 02/15/21 04:20 BUN/Creatinine Ratio 9 % 02/15/21 04:20 Glucose 183 mg/dL (75-100) H 02/15/21 04:20 POC Glucose 147 mg/dL (70-105) H 02/15/21 11:05 Hemoglobin A1c 5.1 % (4-6) 02/15/21 04:20 Lactic Acid 3.70 mmol/L (0.7-2.0) H* 02/15/21 04:20 Calcium 7.6 mg/dL (8.4-10.2) L 02/15/21 04:20 Phosphorus 3.10 mg/dL (2.5-4.5) D 02/15/21 04:20 Magnesium 2.50 mg/dL (1.7-2.3) H 02/15/21 04:20 Total Bilirubin 19.70 mg/dL (0.1-1.2) H 02/13/21 11:20 AST 544 units/L (5-40) H 02/13/21 11:20 ALT 107 units/L (7-56) H 02/13/21 11:20 Alkaline Phosphatase 372 units/L (35-129) H 02/13/21 11:20 Ammonia 75.0 umol/L (25-60) H 02/15/21 04:20 Lactate Dehydrogenase 1244 units/L (91-180) H 02/13/21 11:20 C-Reactive Protein 5.40 mg/dL (0.00-1.30) H 02/13/21 11:20 Total Protein 5.7 g/dL (6.3-8.2) L 02/13/21 11:20 Albumin 3.0 g/dL (3.9-5) L 02/13/21 11:20 Albumin/Globulin Ratio 1.1 % 02/13/21 11:20 Triglycerides 631 mg/dL (2-149) H 02/15/21 04:20 Fluid Type Thoracentesis 02/13/21 12:15 Fluid Color Nae 02/13/21 12:15 Fluid Appearance Hazy 02/13/21 12:15 Fluid WBC 63 /mm3 02/13/21 12:15 Fluid RBC 800 /mm3 02/13/21 12:15 Fluid Seg Neutrophils 11.3 % 02/13/21 12:15 Fluid Lymphocytes 12.5 % 02/13/21 12:15 Fluid Reactive Lymphs 2.5 % 02/13/21 12:15 Fluid Monocytes 72.5 % 02/13/21 12:15 Fluid Eosinophils 0 % 02/13/21 12:15 Fluid Basophils 1.3 % 02/13/21 12:15 Plasma/Serum Alcohol 0.32 % (0-0.07) H 02/12/21 22:17 Coronavirus (PCR) Negative (Negative) 02/13/21 Unknown Microbiology: Microbiology 02/13/21 13:53 Peripheral/Venous Blood Culture - Preliminary NO GROWTH AFTER 24 HOURS 02/13/21 13:53 Peripheral/Venous Blood Culture - Preliminary NO GROWTH AFTER 24 HOURS 02/13/21 12:15 Pleural Fluid - Pleura,Rt Lung Body Fluid Culture - Preliminary Crain/IV: Voiding Method Indwelling Catheter Active Medications - Current Medications Current Medications: Generic Name Dose Route Start Last Admin Trade Name Freq PRN Reason Stop Dose Admin Acetaminophen 650 mg 02/13/21 02:35 02/13/21 18:06 Acetaminophen 325 Mg Tab PO 650 mg Q4H PRN Administration Pain MILD(1-3)/Fever >100.5/GIORDANO Lipase/Protease/Amylase 1 each 02/13/21 17:30 Lipase 10,500/Protease 25,000/Amylase 43,750 (Units) Cap FEEDTUBE PRN PRN For Clogged Feeding Tube Dextrose 50 ml 02/14/21 15:57 Dextrose 50% In Water (25gm) 50 Ml Syringe IV Q30MIN PRN Hypoglycemia Protocol Famotidine 10 mg 02/14/21 10:00 02/15/21 09:47 Famotidine 10 Mg Tab FEEDTUBE 10 mg BID LAURIE Administration Fentanyl 50 mcg 02/13/21 16:00 02/15/21 09:49 Fentanyl 100 Mcg/2 Ml Inj IV 50 mcg Q10MIN PRN Administration ANALGESIA Hydrophilic Ointment 1 applic 02/13/21 05:56 Lip Therapy Vaseline TP Q2HR PRN Dry Lips Propofol 1,000 mg in 100 mls @ 2.517 mls/hr 02/13/21 06:00 02/14/21 08:55 Diprivan 10 Mg/Ml IV Infused TITR LAURIE Titration Protocol 5 MCG/KG/MIN NORepinephrine/NS 8 MG-250 ML 8 mg in 250 mls @ 3.75 mls/hr 02/13/21 08:00 02/15/21 09:47 Norepinephrine/Ns 8 Mg-250 Ml (Double Conc) IV 10 mcg/min TITRATE LAURIE 18.75 mls/hr Administration Protocol 2 MCG/MIN Azithromycin 500 mg in 250 mls @ 250 mls/hr 02/13/21 14:00 02/14/21 17:05 Zithromax/Ns IV 02/15/21 14:59 250 mls/hr Q24H LAURIE Administration Ceftriaxone Sodium 2 gm in 100 mls @ 200 mls/hr 02/13/21 15:00 02/14/21 17:18 Rocephin/Ns 2 Gm/100 Ml IV 02/17/21 15:29 200 mls/hr Q24H LAURIE Administration Protocol Fentanyl Citrate 2,000 mcg in 100 mls @ 4.196 mls/hr 02/13/21 16:00 02/15/21 10:47 Fentanyl Drip Premix IV 3 mcg/kg/hr TITR LAURIE 12.587 mls/hr Titration Protocol 1 MCG/KG/HR Sodium Bicarbonate 150 meq/ 1,150 mls @ 100 mls/hr 02/14/21 11:00 02/15/21 02:53 Dextrose IV 02/15/21 22:29 100 mls/hr DIRECT LAURIE Administration Sodium Chloride 100 mls @ 999 mls/hr 02/15/21 06:00 Nacl 0.9% IV AMY PRN Hypotension Insulin Human Lispro 0 unit 02/14/21 18:00 02/15/21 06:16 Insulin Lispro 100 Unit/Ml SUB-Q 2 unit Q6HR LAURIE Administration Protocol Lactulose 20 gm 02/15/21 09:00 02/15/21 09:47 Lactulose 20 Gm/30 Ml Oral Liqd PO 02/15/21 21:01 20 gm Q6H LAURIE Administration Lactulose 20 gm 02/16/21 10:00 Lactulose 20 Gm/30 Ml Oral Liqd PO QDAY LAURIE Lorazepam 2 mg 02/12/21 22:24 02/13/21 02:07 Lorazepam 2 Mg/Ml Vial IV 2 mg Q1H PRN Administration CIWA-Ar 8-15 Lorazepam 4 mg 02/12/21 22:24 Lorazepam 2 Mg/Ml Vial IV Q1H PRN CIWA-Ar 16-25 Magnesium Hydroxide 30 ml 02/13/21 02:35 Magnesium Hydroxide (Mom) Oral Liqd Udc PO Q4H PRN Constipation Multi-Ingred Cream/Lotion/Oil/Oint 1 applic 02/13/21 05:56 Mineral Oil/Petrolatum, White Ophth Oint 3.5 Gm OU Q4HR PRN Dry Eye(s) Ondansetron HCl 4 mg 02/13/21 02:35 Ondansetron 4 Mg/2 Ml Inj IV Q8H PRN Nausea And Vomiting Potassium Chloride 40 meq 02/15/21 09:00 02/15/21 09:48 Potassium Chloride 20 Meq Packet FEEDTUBE 02/15/21 13:00 Not Given ONCE@0900 [facility] Senna/Docusate Sodium 1 tab 02/13/21 10:00 12/23/21 09:48 Sennosides/Docusate Sodium 8.6/50 Mg Tab FEEDTUBE 1 tab BID LAURIE Administration Simple Syrup 15 ml 02/13/21 17:30 Simple Syrup 15 Ml FEEDTUBE PRN PRN Hypoglycemia Simple Syrup 30 ml 02/13/21 17:30 Simple Syrup 15 Ml FEEDTUBE PRN PRN Hypoglycemia Sodium Bicarbonate 325 mg 02/13/21 17:30 Sodium Bicarbonate 325 Mg Tab FEEDTUBE PRN PRN For Clogged Feeding Tube Sodium Chloride 10 ml 02/13/21 10:00 02/15/21 09:48 Sodium Chloride 0.9% 10 Ml Flush Syringe IV 10 ml BID LAURIE Administration Sodium Chloride 10 ml 02/13/21 02:35 Sodium Chloride 0.9% 10 Ml Flush Syringe IV PRN PRN LINE FLUSH Nutrition/Malnutrition Assess - Dietary Evaluation Nutrition/Malnutrition Findings: Nutrition Notes Start: 02/13/21 16:19 Freq: Status: Active Protocol: Document 02/14/21 13:16 SKYE (Rec: 02/14/21 13:23 SKYE [id number]) Nutrition Notes Initial or Follow up Brief Note Current Diet TF-Promote @ 77 ml/hr (B 02/14 ). Height 5 ft 9 in Weight 83.915 kg [place] Body Weight (kg) 72.72 BMI 27.3 Weight change and time frame No body weight change reported . Weight Status Overweight Subjective/Other Information RD consult for skin risk assessment; < or = 18, and risk of malnutrition; MST = 2. Pt fully assessed on 02/13, and showed no signs of concern for skin risk, nor for malnutrition risk at the time, according to Physical Assessment History notes. Percent of energy/protein needs met: Prescribed TF-Promote @ 77 ml/ hr provides for energy/protein needs (1,845 Kcal/115 g) during LOS; 90% Kcal; 100% AA. Nutrition Intervention Nutrition Support: Continue Promote @ 77 ml/hr. Flush: 80 ml water Q 4 hr. Follow-Up By: 02/16/21 Additional Comments Continue monitoring TF tolerance, Hydration, and BM.
[2021-02-15 11:52] LABS: Hepatitis C Virus Antibody Non-Reactive (NonReactive)
[2021-02-15 12:22] LABS: Hepatitis B Surface Antigen Nonreactive (Negative)
--- NOTE | 2021-02-15 13:49 | Gastroenterology Progress Note ---
Assessment and Plan 1. Alcoholic liver disease - likely with alc hep superimposed on underlying cirrhosis. not a transplant candidate due to continued alcohol abuse prior to admission. mentation has not meaningfully improved, unclear if HE contributing, ammonia elevated and no bm's yet. increase scheduled lactulose doses for goal of 2-[address] of head pending. poor prognosis in setting of MOF (renal and respiratory as well) Subjective Date of service: 02/15/21 Principal diagnosis: AHRF; Cardiac arrest; R. pleural effusion; Liver failure; Thrombocytopenia Interval history: pt received HD today, became hypotensive during and thus pressors were started. no meaningful mentation improvements (back on fentanyl drip now). no bm's since admission Objective - Exam Narrative Exam: gen: intubated/sedated Abd: soft, nd CV: rrr lungs: coarse bilaterally, on vent - Constitutional Vitals: Temp Pulse Resp BP Pulse Ox 100.1 F H 130 H 39 H 88/56 91 02/15/21 11:51 02/15/21 13:15 02/15/21 13:15 02/15/21 13:15 02/15/21 13:15 - Labs CBC & Chem 7: 02/15/21 04:20 02/15/21 04:20 Labs: Laboratory Results - last 24 hr 02/14/21 02/14/21 02/15/21 17:46 23:18 04:20 WBC RBC Hgb Hct MCV MCH MCHC RDW Plt Count Sodium Potassium Chloride Carbon Dioxide Anion Gap BUN Creatinine Estimated GFR BUN/Creatinine Ratio Glucose POC Glucose 153 H 196 H Hemoglobin A1c Lactic Acid Calcium Phosphorus Magnesium Ammonia Triglycerides 631 H Hepatitis A IgM Ab Hep Bs Antigen Hep B Core IgM Ab Hepatitis C Antibody 02/15/21 02/15/21 02/15/21 04:20 04:20 04:20 WBC 10.1 RBC 3.12 L Hgb 10.6 L Hct 33.9 L MCV 109 H MCH 34 H MCHC 31 L RDW 17.7 H Plt Count 55 L Sodium 139 Potassium 3.1 L D Chloride 91.5 L Carbon Dioxide 25 Anion Gap 26 BUN 45 H Creatinine 5.1 H Estimated GFR 12 BUN/Creatinine Ratio 9 Glucose 183 H POC Glucose Hemoglobin A1c Lactic Acid 3.70 H* Calcium 7.6 L Phosphorus 3.10 D Magnesium 2.50 H Ammonia Triglycerides Hepatitis A IgM Ab Hep Bs Antigen Hep B Core IgM Ab Hepatitis C Antibody 02/15/21 02/15/21 02/15/21 04:20 04:20 05:24 WBC RBC Hgb Hct MCV MCH MCHC RDW Plt Count Sodium Potassium Chloride Carbon Dioxide Anion Gap BUN Creatinine Estimated GFR BUN/Creatinine Ratio Glucose POC Glucose 165 H Hemoglobin A1c 5.1 Lactic Acid Calcium Phosphorus Magnesium Ammonia 75.0 H Triglycerides Hepatitis A IgM Ab Hep Bs Antigen Hep B Core IgM Ab Hepatitis C Antibody 02/15/21 02/15/21 09:00 11:05 WBC RBC Hgb Hct MCV MCH MCHC RDW Plt Count Sodium Potassium Chloride Carbon Dioxide Anion Gap BUN Creatinine Estimated GFR BUN/Creatinine Ratio Glucose POC Glucose 147 H Hemoglobin A1c Lactic Acid Calcium Phosphorus Magnesium Ammonia Triglycerides Hepatitis A IgM Ab Non-reactive Hep Bs Antigen Nonreactive Hep B Core IgM Ab Non-reactive Hepatitis C Antibody Non-reactive
[2021-02-15] MEDS: AZITHROMYCIN/NS 500 MG/250 ML 500 MG/250 ML BAG IV SCH (14:14)
[2021-02-15] MEDS: cefTRIAXone/NS 2 GM/100 ML 2 GM/100 ML BAG IV SCH (14:14)
[2021-02-15] MEDS ORDERED: ALBUMIN HUMAN 5% (12.5 GM/250 ML) INJ IV ONE (15:00)
[2021-02-15] MEDS ORDERED: SODIUM BICARB 8.4% 50 MEQ/50 ML SYRINGE IV ONE (15:48)
[2021-02-15] MEDS ORDERED: EPINEPHrine 30 MG/30 ML INJ IV ONE (15:52)
[2021-02-15] MEDS ORDERED: AMIODARONE 150 MG/3 ML INJ IV ONE (15:52)
[2021-02-15] MEDS ORDERED: DOPamine/D5W 800 MG/250 ML DRIP IV ONE (15:52)
[2021-02-15] MEDS ORDERED: EPINEPHrine 1 MG/10 ML SYRINGE ONE (15:52)
[2021-02-15] MEDS ORDERED: LIDOCAINE PF 100 MG/5 ML (CARDIAC SYRINGE) IV ONE (15:52)
[2021-02-15] MEDS ORDERED: CALCIUM CHLORIDE 1,000 MG/10 ML SYRINGE IV ONE (15:52)
[2021-02-15] MEDS ORDERED: VASOPRESSIN 20 UNIT in SODIUM CHLORIDE 0.9% 100 ML IV SCH (17:00)
[2021-02-15 17:05] LABS: ABG Base Excess -16.2 mmol/L (-2.0-3.0); ABG HCO3 13.8 mmol/L (20.0-26.0); ABG Methemoglobin 0.9 % (0.0-1.5); ABG Oxygen Saturation 70.6 % (95.0-99.0); ABG PCO2 52.3 mm Hg
[2021-02-15 17:10] LABS: ABG PH 7.04 pH Units (7.350-7.450)
[2021-02-15 17:32] VITALS: BP 78/46
--- NOTE | 2021-02-15 18:09 | Progress Note ---
Assessment and Plan Impression: * Oligo/anuric NAVDEEP secondary to ischemic ATN s/p cardiac arrest vs HRS * Cardiac arrest * Acute hypoxic respiratory failure * Pleural effusion, large right * Alcoholic hepatitis * Liver cirrhosis * Abdominal ascites * Lactic acidosis Plan: * Hemodialysis today - first treatment * Will plan for HD again tomorrow * UF as tolerated * Pressors prn to maintain MAP >65 * Vent management per CCM * GI recommendations reviewed * Dose medications for renal function * Avoid nephrotoxins * Maintain indwelling keita for strict I/O in critically ill patient Subjective Date of service: 02/15/21 Principal diagnosis: AHRF; Cardiac arrest; R. pleural effusion; Liver failure; Thrombocytopenia Objective - Vital Signs Vital signs: Vital Signs - 12hr 02/15/21 02/15/21 02/15/21 06:15 06:30 06:45 Temperature Pulse Rate 111 H 110 H 106 H Respiratory 24 26 H 24 Rate Blood Pressure 118/67 115/63 123/72 O2 Sat by Pulse 95 96 Oximetry O2 Sat by Pulse Oximetry [ Anterior Bilateral Throughout] 02/15/21 02/15/21 02/15/21 07:00 07:14 07:15 Temperature 99.6 F Pulse Rate 109 H 108 H Respiratory 27 H 24 Rate Blood Pressure 111/63 108/66 O2 Sat by Pulse 96 95 Oximetry O2 Sat by Pulse Oximetry [ Anterior Bilateral Throughout] 02/15/21 02/15/21 02/15/21 07:30 07:46 08:00 Temperature Pulse Rate 107 H 117 H 110 H Respiratory 26 H 29 H 28 H Rate Blood Pressure 103/66 136/78 110/64 O2 Sat by Pulse 95 96 95 Oximetry O2 Sat by Pulse Oximetry [ Anterior Bilateral Throughout] 02/15/21 02/15/21 02/15/21 08:15 08:19 08:30 Temperature Pulse Rate 108 H 112 H 115 H Respiratory 27 H 26 H Rate Blood Pressure 116/67 116/67 124/66 O2 Sat by Pulse 95 94 95 Oximetry O2 Sat by Pulse Oximetry [ Anterior Bilateral Throughout] 02/15/21 02/15/21 02/15/21 08:45 09:00 09:15 Temperature 98.2 F Pulse Rate 111 H 111 H 125 H Respiratory 28 H 31 H 32 H Rate Blood Pressure 123/70 123/70 114/64 O2 Sat by Pulse 95 95 96 Oximetry O2 Sat by Pulse 96 Oximetry [ Anterior Bilateral Throughout] 02/15/21 02/15/21 02/15/21 09:30 09:45 10:00 Temperature Pulse Rate 126 H 127 H 123 H Respiratory 39 H 32 H 28 H Rate Blood Pressure 110/66 105/61 109/65 O2 Sat by Pulse 95 96 96 Oximetry O2 Sat by Pulse Oximetry [ Anterior Bilateral Throughout] 02/15/21 02/15/21 02/15/21 10:15 10:30 10:45 Temperature Pulse Rate 125 H 129 H 131 H Respiratory 29 H 32 H 35 H Rate Blood Pressure 112/66 107/61 104/60 O2 Sat by Pulse 95 94 Oximetry O2 Sat by Pulse Oximetry [ Anterior Bilateral Throughout] 02/15/21 02/15/21 02/15/21 11:00 11:15 11:30 Temperature Pulse Rate 122 H 127 H 127 H Respiratory 31 H 28 H 32 H Rate Blood Pressure 104/55 101/60 95/57 O2 Sat by Pulse 95 94 Oximetry O2 Sat by Pulse Oximetry [ Anterior Bilateral Throughout] 02/15/21 02/15/21 02/15/21 11:32 11:45 11:51 Temperature 100.2 F H 100.1 F H Pulse Rate 128 H 128 H Respiratory 34 H 28 H Rate Blood Pressure 100/64 100/64 O2 Sat by Pulse 94 Oximetry O2 Sat by Pulse 96 Oximetry [ Anterior Bilateral Throughout] 02/15/21 02/15/21 02/15/21 12:00 12:14 12:15 Temperature Pulse Rate 129 H 128 H 129 H Respiratory 39 H 37 H Rate Blood Pressure 105/64 100/61 100/61 O2 Sat by Pulse 94 93 92 Oximetry O2 Sat by Pulse Oximetry [ Anterior Bilateral Throughout] 02/15/21 02/15/21 02/15/21 12:30 12:45 13:00 Temperature Pulse Rate 129 H 128 H 130 H Respiratory 37 H 32 H 38 H Rate Blood Pressure 99/59 96/60 97/59 O2 Sat by Pulse 93 93 93 Oximetry O2 Sat by Pulse Oximetry [ Anterior Bilateral Throughout] 02/15/21 02/15/21 02/15/21 13:15 13:30 13:45 Temperature Pulse Rate 130 H 130 H 131 H Respiratory 39 H 37 H 38 H Rate Blood Pressure 88/56 97/59 95/57 O2 Sat by Pulse 91 92 92 Oximetry O2 Sat by Pulse Oximetry [ Anterior Bilateral Throughout] 02/15/21 02/15/21 02/15/21 14:00 14:15 14:30 Temperature Pulse Rate 132 H 130 H 134 H Respiratory 38 H 34 H 31 H Rate Blood Pressure 96/60 100/59 97/57 O2 Sat by Pulse 91 93 95 Oximetry O2 Sat by Pulse Oximetry [ Anterior Bilateral Throughout] 02/15/21 02/15/21 02/15/21 14:45 15:00 15:15 Temperature Pulse Rate 134 H 135 H 135 H Respiratory 33 H 33 H 33 H Rate Blood Pressure 97/58 96/59 91/59 O2 Sat by Pulse 92 87 86 Oximetry O2 Sat by Pulse Oximetry [ Anterior Bilateral Throughout] 02/15/21 02/15/21 02/15/21 15:30 15:45 16:00 Temperature Pulse Rate 134 H 115 H 133 H Respiratory 32 H 29 H 14 Rate Blood Pressure 82/56 77/44 126/70 O2 Sat by Pulse 88 96 Oximetry O2 Sat by Pulse Oximetry [ Anterior Bilateral Throughout] 02/15/21 02/15/21 02/15/21 16:15 16:30 16:46 Temperature Pulse Rate 123 H 134 H 60 Respiratory 16 12 16 Rate Blood Pressure 78/40 93/49 78/46 O2 Sat by Pulse 94 94 52 L Oximetry O2 Sat by Pulse Oximetry [ Anterior Bilateral Throughout] 02/15/21 16:53 Temperature Pulse Rate Respiratory Rate Blood Pressure O2 Sat by Pulse 0 L Oximetry O2 Sat by Pulse Oximetry [ Anterior Bilateral Throughout] - Lab 02/15/21 04:20 02/15/21 04:20 Most recent lab results ABG pH 7.040 pH Units (7.350-7.450) L* 02/15/21 16:39 ABG pCO2 52.3 mm Hg 02/15/21 16:39 ABG pO2 59.0 mm Hg (80.0-90.0) L 02/15/21 16:39 ABG HCO3 13.8 mmol/L (20.0-26.0) L 02/15/21 16:39 ABG O2 Saturation 70.6 % (95.0-99.0) L 02/15/21 16:39 Calcium 7.6 mg/dL (8.4-10.2) L 02/15/21 04:20 Phosphorus 3.10 mg/dL (2.5-4.5) D 02/15/21 04:20 Magnesium 2.50 mg/dL (1.7-2.3) H 02/15/21 04:20 Medications & Allergies - Medications Allergies/Adverse Reactions: Allergies No Known Allergies Allergy (Verified 02/13/21 01:35) Home Medications: Home Medications Medication Instructions Recorded Confirmed Last Taken Type No Known Home Medications [No 02/15/21 02/15/21 Unknown History Reported Home Medications] Active Medications: Generic Name Dose Route Start Last Admin Trade Name Freq PRN Reason Stop Dose Admin Acetaminophen 650 mg 02/13/21 02:35 02/13/21 18:06 Acetaminophen 325 Mg Tab PO 650 mg Q4H PRN Administration Pain MILD(1-3)/Fever >100.5/GIORDANO Lipase/Protease/Amylase 1 each 02/13/21 17:30 Lipase 10,500/Protease 25,000/Amylase 43,750 (Units) Dr Kwong FEEDTUBE PRN PRN For Clogged Feeding Tube Dextrose 50 ml 02/14/21 15:57 02/15/21 16:17 Dextrose 50% In Water (25gm) 50 Ml Syringe IV 50 ml Q30MIN PRN Administration Hypoglycemia Protocol Famotidine 10 mg 02/14/21 10:00 02/15/21 09:47 Famotidine 10 Mg Tab FEEDTUBE 10 mg BID LAURIE Administration Fentanyl 50 mcg 02/13/21 16:00 02/15/21 09:49 Fentanyl 100 Mcg/2 Ml Inj IV 50 mcg Q10MIN PRN Administration ANALGESIA Hydrophilic Ointment 1 applic 02/13/21 05:56 Lip Therapy Vaseline TP Q2HR PRN Dry Lips Propofol 1,000 mg in 100 mls @ 2.517 mls/hr 02/13/21 06:00 02/14/21 08:55 Diprivan 10 Mg/Ml IV Infused TITR LAURIE Titration Protocol 5 MCG/KG/MIN NORepinephrine/NS 8 MG-250 ML 8 mg in 250 mls @ 3.75 mls/hr 02/13/21 08:00 02/15/21 13:47 Norepinephrine/Ns 8 Mg-250 Ml (Double Conc) IV 18 mcg/min TITRATE LAURIE 33.75 mls/hr Titration Protocol 2 MCG/MIN Ceftriaxone Sodium 2 gm in 100 mls @ 200 mls/hr 02/13/21 15:00 02/15/21 14:14 Rocephin/Ns 2 Gm/100 Ml IV 02/17/21 15:29 200 mls/hr Q24H LAURIE Administration Protocol Fentanyl Citrate 2,000 mcg in 100 mls @ 4.196 mls/hr 02/13/21 16:00 02/15/21 13:47 Fentanyl Drip Premix IV 4 mcg/kg/hr TITR LAURIE 16.783 mls/hr Titration Protocol 1 MCG/KG/HR Sodium Bicarbonate 150 meq/ 1,150 mls @ 100 mls/hr 02/14/21 11:00 02/15/21 14:15 Dextrose IV 02/17/21 22:29 0 mls/hr DIRECT LAURIE Infusion Sodium Chloride 100 mls @ 999 mls/hr 02/15/21 06:00 Nacl 0.9% IV AMY PRN Hypotension Vasopressin 20 unit/ Sodium 101 mls @ 9.09 mls/hr 02/15/21 17:00 02/15/21 16:13 Chloride IV 0.03 units/min TITR LAURIE 9.09 mls/hr Administration Protocol 0.03 UNITS/MIN Insulin Human Lispro 0 unit 02/14/21 18:00 02/15/21 13:23 Insulin Lispro 100 Unit/Ml SUB-Q Not Given Q6HR [facility] Protocol Lactulose 20 gm 02/15/21 09:00 02/15/21 14:14 Lactulose 20 Gm/30 Ml Oral Liqd PO 02/15/21 21:01 20 gm Q6H LAURIE Administration Lactulose 20 gm 02/16/21 10:00 Lactulose 20 Gm/30 Ml Oral Liqd PO QDAY LAURIE Lorazepam 2 mg 02/12/21 22:24 02/13/21 02:07 Lorazepam 2 Mg/Ml Vial IV 2 mg Q1H PRN Administration CIWA-Ar 8-15 Lorazepam 4 mg 02/12/21 22:24 Lorazepam 2 Mg/Ml Vial IV Q1H PRN CIWA-Ar 16-25 Magnesium Hydroxide 30 ml 02/13/21 02:35 Magnesium Hydroxide (Mom) Oral Liqd Udc PO Q4H PRN Constipation Multi-Ingred Cream/Lotion/Oil/Oint 1 applic 02/13/21 05:56 Mineral Oil/Petrolatum, White Ophth Oint 3.5 Gm OU Q4HR PRN Dry Eye(s) Ondansetron HCl 4 mg 02/13/21 02:35 Ondansetron 4 Mg/2 Ml Inj IV Q8H PRN Nausea And Vomiting Senna/Docusate Sodium 1 tab 02/13/21 10:00 02/15/21 09:48 Sennosides/Docusate Sodium 8.6/50 Mg Tab FEEDTUBE 1 tab BID LAURIE Administration Simple Syrup 15 ml 02/13/21 17:30 Simple Syrup 15 Ml FEEDTUBE PRN PRN Hypoglycemia Simple Syrup 30 ml 02/13/21 17:30 Simple Syrup 15 Ml FEEDTUBE PRN PRN Hypoglycemia Sodium Bicarbonate 325 mg 02/13/21 17:30 Sodium Bicarbonate 325 Mg Tab FEEDTUBE PRN PRN For Clogged Feeding Tube Sodium Chloride 10 ml 02/13/21 10:00 02/15/21 09:48 Sodium Chloride 0.9% 10 Ml Flush Syringe IV 10 ml BID LAURIE Administration Sodium Chloride 10 ml 02/13/21 02:35 Sodium Chloride 0.9% 10 Ml Flush Syringe IV PRN PRN LINE FLUSH
--- NOTE | 2021-02-15 21:02 | Event Note ---
Date: 02/15/21 A CODE BLUE was called I presented to the patient bedside and the patient was treated in accordance with ACLS protocol with eventual return of perfusing cardiac rhythm. New patient poor prognosis remained in the ICU due to hemodynamic instability. Patient again went to cardiac arrest a code was called and the patient was again initiated on ACLS protocol. Patient found to have asystole on stars specialist. Neurologic exam revealed absence of brainstem reflexes, and pupils were fixed and dilated. Respiratory exam revealed absent respirations. Patient pronounced at 1653 hrs. Patient family notified and made aware. Upon arrival of the patient's family advanced care planning was conducted. Patient family made aware of patient status. Bereavement services offered however the patient family has their own cement sack breaker. 90 minutes critical care time dedicated to patient care. Advanced care planning conducted, +30 minutes.
--- NOTE | 2021-02-15 21:04 | Death Note ---
Note Date of : 02/15/21 Time of : 16:53 Time Pronounced: 16:53 - Preliminary Cause of (problem) (1) Acute respiratory failure Preliminary cause of (2) End stage liver disease Preliminary cause of (3) Alcohol abuse Preliminary cause of
[2021-02-16] MEDS ORDERED: LACTULOSE 20 GM/30 ML ORAL LIQD PO SCH (10:00)
--- NOTE | 2021-02-16 13:44 | Death Summary ---
Summary - Providers Date of service: 02/15/21 Consults: 02/13/21 00:16 Consult to Physician [CONS] Urgent Comment: Dr. Pinto spoke with Dr. Manzano @ 0012 Consulting Provider: MYRNA MANZANO Physician Instructions: Reason For Exam: Alcohol liver cirrhosis 02/13/21 05:56 Consult to Dietitian/Nutrition [CONS] Routine Physician Instructions: Reason For Exam: Reason for Consult: Write/Manage Tube Feeding 02/13/21 06:03 Consult to Physician [CONS] Urgent Comment: Dr. Pinto spoke with Dr. Rhodes @ [id number] Consulting Provider: ESTER RHODES Physician Instructions: Reason For Exam: respiratory failure 02/14/21 08:20 Consult to Physician [CONS] Urgent Comment: no answer Consulting Provider: EULALIO MAHMOOD Physician Instructions: Reason For Exam: NAVDEEP 02/14/21 13:11 Consult to Interventional Radiology [CONS] Routine Consulting Provider: CHERELLE ZIEGLER Reason For Exam: Large Right Pleural effusion Place consult to:: office Notified:: yes Was contact made?: Yes If yes, spoke with:: staff Time called:: 14:31 Comment:: dr. quintero o/c bridger Attending: ЮЛИЯ MAYA - summary Date of admission: 02/13/21 00:17 Date of : 02/15/21 Disposition: This a 45-year-old male with a known past medical history of ETOH abuse, alcohol induced liver cirrhosis with ascites, had multiple paracentesis in the past admitted for respiratory distress. Patient was found to have a larger right pleural effusion. While in the ED coded and had a cardiac arrest requiring intubated on ventilatory support transferred to ICU for further management. In the ICU, patient had a bedside thoracentesis, 1600ml was taken out. Post thoracentesis CXR reveal slight aeration improved, however right pleural effusion persist, IR was consulted for possible chest tube placement. However patient was too unstable for the procedure at that time. Patient was also in severe metabolic acidosis with severe lactic acidosis requiring multiple pressors and Bcarb gtt. empiric IV abx was also initiated. patient also went into acute kidney injury, Nephro was consulted and HD was initiated. Post cardiac arrest patient remains unresponsive without any sedation, CT head was ordered, however, patient was too unstable for transfer. Hyperammonemia was managed with PO lactulose Around 1550 on 02/15, a code keerthi was called. Patient krystina down into the 40s, then lost pulse, patient was PEA on the monitor. CPR and ACLS measures were initiated, after a couple rounds of epi ROSC was achieved. Patient's mother, Phyllis Davis was contacted by the primary attending and was in route to the hospital. Around 164, patient went into PEA arrest , another code blue called and ACLS protocol initiated. Despite multiple rounds of epinephrine, bicarbonate, and c hest compressions, patient remained in PEA arrest. All reversible causes for arrest were considered however resuscitation was unsuccessful. Patient was pronounced at 1653. Patient's family was notified by the MD who ran the code. Upon arrival of the patient's family advanced care planning was conducted. Patient family made aware of patient status. Bereavement services offered however the patient family has their own air value tester.
== END 2021-02-15 21:38 | DRG 871 ==
LOC: ED 20:54 → CC1 02-13 00:17 → EDBD 02-13 00:17 → IMCU 02-13 01:21 → 4A 02-13 02:45 → IMCU 02-13 04:46 → CC1 02-13 07:40
PROVIDERS: ADMIT Internal Medicine Geriatric Medicine; ATTEND Internal Medicine
PROC: 5A1945Z Respiratory Ventilation, 24-96 Consecutive Hours (ICD-10-PCS; principal; 2021-02-13)
PROC: 0BH17EZ Insertion of Endotracheal Airway into Trachea, Via Natural or Artificial Opening (ICD-10-PCS; 2021-02-13)
PROC: 06HM33Z Insertion of Infusion Device into Right Femoral Vein, Percutaneous Approach (ICD-10-PCS; 2021-02-13)
PROC: B54BZZA Ultrasonography of Right Lower Extremity Veins, Guidance (ICD-10-PCS; 2021-02-13)
PROC: 0W993ZZ Drainage of Right Pleural Cavity, Percutaneous Approach (ICD-10-PCS; 2021-02-13)
PROC: 4A033R1 Measurement of Arterial Saturation, Peripheral, Percutaneous Approach (ICD-10-PCS; 2021-02-13)
PROC: 06HM33Z Insertion of Infusion Device into Right Femoral Vein, Percutaneous Approach (ICD-10-PCS; 2021-02-14)
PROC: B54BZZA Ultrasonography of Right Lower Extremity Veins, Guidance (ICD-10-PCS; 2021-02-14)
PROC: 5A1D70Z Performance of Urinary Filtration, Intermittent, Less than 6 Hours Per Day (ICD-10-PCS; 2021-02-15)
PROC: 5A12012 Performance of Cardiac Output, Single, Manual (ICD-10-PCS; 2021-02-15)
DX: A41.9 Sepsis, unspecified organism (principal); J96.01 Acute respiratory failure with hypoxia; N17.0 Acute kidney failure with tubular necrosis; G93.41 Metabolic encephalopathy; R65.21 Severe sepsis with septic shock; J18.9 Pneumonia, unspecified organism; J90 Pleural effusion, not elsewhere classified; F10.10 Alcohol abuse, uncomplicated; K74.60 Unspecified cirrhosis of liver; D69.6 Thrombocytopenia, unspecified; E87.6 Hypokalemia; E83.42 Hypomagnesemia; I46.9 Cardiac arrest, cause unspecified; R13.12 Dysphagia, oropharyngeal phase; I10 Essential (primary) hypertension; K70.11 Alcoholic hepatitis with ascites; Z20.822 Contact with and (suspected) exposure to COVID-19
CPT/HCPCS: 32555; 36415; 36600; 71045; 71260; 74177; 80048; 80053; 80074; 80320; 82140; 82803; 82947; 82962; 83036; 83605; 83615; 83735; 84100; 84160; 84478; 85007; 85025; 85027; 85610; 85730; 86140; 87040; 87070; 87086; 87116; 87205; 88112; 88305; 89051; 93005; 93306; 94002; 94003; 94760; 99291; G0378; J2354; J3490; Q0162; Q9967; G0480; J0171; J0282; J0456; J0696; J1265; J1815; J2001; J2060; J2704; J3010; J3411; J3475; J7030; J7040; J7050; J7070; P9045; P9047; U0003